=== PATIENT | male | born 1945 | race Caucasian/White ===

== ENCOUNTER → 2018-02-08 12:54 | Outpatient (CLI) | payer MEDICARE, SELFPAY ==
--- NOTE | 2018-02-08 12:58 | US_ITS ---
STUDY: SUPERFICIAL ULTRASOUND - LEFT SUPERIOR THIGH REASON FOR EXAM: Male, 72 years old. Left thigh a palpable lump, check for neoplasm. TECHNIQUE: A superficial ultrasound was performed with real-time and static pillai-scale imaging. COMPARISON: None available. FINDINGS: Oval smooth margin well-demarcated heterogeneous echogenic 8.1 x 2.3 x 5.6 cm mass is identified with eccentric area of heterogeneous increased echogenicity and relative contralateral hypoechogenicity noted within the mass. In addition, internal color Doppler signal is noted including centrally. Lesion is fairly superficial within 2.5 cm of the skin margin and transducer. ct scan special procedures technologist documented compression of the mass from 2.2 cm to 1.8 cm with transverse projection. ct scan special procedures technologist documented lump not palpable and lying down and demonstrates some posterior enhancement. US/Ext Non Vasc Limited/Soft Tiss IMPRESSION: Oval smooth margin well-demarcated heterogeneous echogenic fairly superficial left superior thigh mass 8.1 x 2.3 x 5.6 cm, neoplasm not excluded. Due to internal color Doppler signal, hematoma is a lower probability differential consideration although clinical correlation is recommended with any recent trauma or patient is taking blood thinners/coagulopathy. Electronically Signed: Lavell Moreau, at 8:36 EDT Tel , Service support ,
== END ==
PROVIDERS: Family Provider Family Medicine; PCP Family Medicine; Visit Provider Family Medicine
DX: R22.42 Localized swelling, mass and lump, left lower limb (principal)
CPT/HCPCS: 76882

== ENCOUNTER → 2018-12-02 | Outpatient (CLI) | payer MEDICARE, SELFPAY ==
[2018-12-02 10:24] LABS: International Normalized Ratio 2.6; Prothrombin Time (Protime)PT. 27.7 SECONDS (11.7-14.9)
== END | disposition home or self-care (01) ==
LOC: LABSPEC 10:12
PROVIDERS: Family Provider Family Medicine; PCP Family Medicine; Referring Provider Family Medicine; Visit Provider Family Medicine
DX: I48.2 Chronic atrial fibrillation (principal); Z79.01 Long term (current) use of anticoagulants
CPT/HCPCS: 85610

== ENCOUNTER → 2018-12-09 | Outpatient (CLI) | payer MEDICARE, SELFPAY ==
[2016-11-24 20:09] VITALS: BMI 34.4
[2018-12-09 10:26] LABS: International Normalized Ratio 1.9; Prothrombin Time (Protime)PT. 21.5 SECONDS (11.7-14.9)
== END | disposition home or self-care (01) ==
LOC: LABSPEC 10:09
PROVIDERS: Family Provider Family Medicine; PCP Family Medicine; Referring Provider Family Medicine; Visit Provider Family Medicine
DX: I48.2 Chronic atrial fibrillation (principal); Z79.01 Long term (current) use of anticoagulants
CPT/HCPCS: 85610

== ENCOUNTER → 2018-12-14 | Outpatient (CLI) | payer MEDICARE, SELFPAY ==
[2016-11-24 20:09] VITALS: BMI 34.4
[2018-12-14 12:54] LABS: International Normalized Ratio 2.2; Prothrombin Time (Protime)PT. 24.8 SECONDS (11.7-14.9)
== END | disposition home or self-care (01) ==
LOC: LABSPEC 12:25
PROVIDERS: Family Provider Family Medicine; PCP Family Medicine; Referring Provider Family Medicine; Visit Provider Family Medicine
DX: I48.2 Chronic atrial fibrillation (principal); Z79.01 Long term (current) use of anticoagulants
CPT/HCPCS: 85610

== ENCOUNTER → 2019-08-04 07:23 | Outpatient (CLI) | payer MEDICARE, SELFPAY ==
[2019-07-28 14:41] VITALS: BMI 34.1
--- NOTE | 2019-08-04 07:24 | AAVD_ITS ---
Reason For Study: AAA Aorta Measurements Aorta Doppler Measurements Proximal aorta measures1.85 x 1.86cm. in cross- Peak systolic flow velocities within the proximal sectional axis. aorta measure 92.4 cm/sec. Proximal aorta measures1.83cm. in longitudinal Peak systolic flow velocities within the mid aorta axis. measure 102.2 cm/sec. Mid aorta measures2.45 x 2.47cm. in cross- Peak systolic flow velocities within the distal sectional axis. aorta measure 73.8 cm/sec. Mid aorta measures2.46cm. in longitudinal axis. Distal aorta measures2.34 x 2.39cm. in cross- sectional axis. Distal aorta measures2.29cm. in longitudinal axis. Left Iliac Artery Left iliac artery measures 1.01 x 1.03 cm. in the cross-sectional axis. Left iliac artery measures 1.00 cm. in the longitudinal axis. Peak systolic velocity in the left iliac artery measures 176.5 cm/sec. Right Iliac Artery Right iliac artery measures 0.97 x 0.99 cm. in the cross-sectional axis. Right iliac artery measures 1.04 cm. in the longitudinal axis. Peak systolic velocity in the right iliac artery measures 100.1 cm/sec. Procedure Aorta IVC Iliac vasculature or bypass grafts 15215. Bowel gas noted at mid abdomen. Exam performed in department. Interpretation Summary Maximal mid aortic dimensions of 2.45 x 2.47 cm. Flow rate in the mid abdominal aorta is marginally elevated at 102.2 cm/s, not clinically significant Left common iliac 1.01 x 1.03 cm diameter with mildly elevated velocity 176.5 cm/s but imaging was difficult at that level Right common iliac 0.97 x 0.99 cm in diameter with a flow rate of 100.1 cm/s Ordering Physician: Vaughn Jiang Referring Physician: Daquan Harris Performed By: Eleni Damon RVT
== END ==
PROVIDERS: PCP Family Medicine; Referring Provider Internal Medicine Cardiovascular Disease; Visit Provider Internal Medicine Cardiovascular Disease
DX: I71.4 Abdominal aortic aneurysm, without rupture (principal)
CPT/HCPCS: 93978

== ENCOUNTER → 2019-12-07 | Outpatient (CLI) | payer MEDICARE, SELFPAY ==
[2019-07-28 14:41] VITALS: BMI 34.1
[2019-12-07 15:56] LABS: Prothrombin Time (Protime)PT. 49.2 SECONDS (11.7-14.9)
[2019-12-07 16:02] LABS: International Normalized Ratio 5.4
== END | disposition home or self-care (01) ==
LOC: LABSPEC 15:11
PROVIDERS: PCP Family Medicine; Visit Provider Family Medicine
DX: I48.20 Chronic atrial fibrillation, unspecified (principal); Z79.01 Long term (current) use of anticoagulants
CPT/HCPCS: 85610

== ENCOUNTER 2019-12-14 16:20 | Inpatient (IN) | payer MEDICARE, SELFPAY ==
[2019-07-28 14:41] VITALS: BMI 34.1
[2019-12-14] VITALS (9 sets, daily range): BP systolic 94–127; BP diastolic 63–76; PULSE 95–114; RESP 16–25; TEMP 36.6–36.8; O2SAT 89–98; BMI 33.5; BMI 34.3; BMI 34.4
--- NOTE | 2019-12-14 16:43 | EKG12_ITS ---
Test Reason : SOB Blood Pressure : / mmHG Vent. Rate : 123 BPM Atrial Rate : 147 BPM P-R Int : 126 ms QRS Dur : 148 ms QT Int : 326 ms P-R-T Axes : -22 133 -12 degrees QTc Int : 466 ms Atrial fibrillation Right bundle branch block T wave abnormality, consider inferior ischemia Abnormal ECG Confirmed by EDNA CARDENAS, MATTHEW ([id number]), editor at large JEREMY WALKER ([id number]) on 12/18/2019 2:07:58 PM Referred By: DENNIS Confirmed By:HUGO BISHOP MD
--- NOTE | 2019-12-14 16:52 | ED.VIS.GEN ---
History of Present Illness Chief Complaint: Shortness of Breath Informant: Patient, Significant Other Onset: Weeks Context: Gradual Onset Timing: Continuous, Waxes and wanes Quality: Dyspnea with exertion, wheezing, nonproductive cough Location: Upper respiratory Current Severity: Mild Maximum Severity: Severe Worsened by: Walking 30 feet. Relieved by: Thank Associated Symptoms: Chills without fever Narrative: Patient is a elderly male on Coumadin for chronic atrial fibrillation. INR was 8. Most recent INR is 4.0. He has no history of PE or DVT. Patient does have discoloration of his legs due to venous stasis dermatitis. He states he has had this for years. He denies headache. Denies visual, ocular auditory symptoms. He denies rhinorrhea, congestion or postnasal drainage. He denies sore throat. He denies loss in smell or taste. states he is always had a problem with taste. He denies pleuritic chest pain. He denies nausea, vomiting diarrhea. He denies hematemesis, melena medication. He denies dysuria, frequency, urgency or hematuria. states he has been on prednisone. He recently completed his third course of prednisone. Prior similar symptoms: Yes Recent Illness/Hospitalization: Yes - Past Medical History (1) Pulmonary hypertension, secondary Status: Acute (2) RBBB (right bundle branch block) Status: Acute (3) Abdominal aortic aneurysm (AAA) Status: Chronic (4) BPH (benign prostatic hyperplasia) Status: Chronic (5) Chronic atrial fibrillation Status: Chronic (6) Essential hypertension Status: Chronic (7) Mixed hyperlipidemia Status: Chronic (8) Non-rheumatic tricuspid valve insufficiency Status: Chronic (9) Nonrheumatic aortic (valve) stenosis Status: Chronic (10) Type 2 diabetes mellitus Status: Chronic (11) Venous insufficiency Status: Chronic Past Medical History - Allergies and Home Meds Allergies/Adverse Reactions: Allergies No Known Allergies Allergy (Verified 12/14/19 16:21) Primary Care Physician: Bora Harris MD [Primary Care Provider] - Prior records reviewed: Yes Surgical History: noncontributory Lives: Spouse/ Significant Other Smoking Status: Former smoker - Patient states he quit smoking 1 week ago. Alcohol: None Drugs: None - Family History Maternal Family History: Family History (Last Reviewed 07/28/19 @ 14:44 by Clementine King) Sister CVA (cerebral vascular accident) Mother Diabetes Cancer Family History: Reports: No pertinent history Review of Systems General: Reports: Chills. Denies: Fever, Malaise, Subjective, Sweats, Weight loss Eyes: Denies: Visual changes - bilaterally, Blurred Vision - bilaterally ENT: Denies: Bilateral ear pain, Rhinorrhea, Sore throat Cardiovascular: Reports: Palpitations. Denies: Chest pain, Heart racing, -, - Respiratory: Reports: Dyspnea, Cough. Denies: Sputum, Dyspnea on exertion - States he was able to walk 150 to 200 yards without being short of breath 1 month ago., Orthopnea, Paroxysmal nocturnal dyspnea Gastrointestinal: Denies: Abdominal pain, Nausea, Vomiting, Diarrhea, Melena, Hematochezia Genitourinary: Denies: Dysuria, Hematuria, Frequency Musculoskeletal: Reports: Swelling - Chronic due to venous stasis with venous stasis dermatitis.. Denies: Myalgias, Arthralgias, Neck pain, Back pain, Extremity Pain, -, - Skin: Reports: Rash. Denies: Abscess, Abrasions, Wounds Neurological: Reports: Weakness. Denies: Headache, Parasthesia, Numbness Endocrine: Denies: Polyuria, Polydipsia Hematologic: Reports: Easy bruising Physical Exam Vital Signs/Narrative: Vital Signs Temp Pulse Resp BP Pulse Ox 12/14/19 16:22 97.9 F 114 H 25 H 125/72 H 89 Inital Vital Signs reviewed: Yes General: Well nourished, Well developed, Acute Distress Head: Normocephalic, Atraumatic Eyes: Perrl, EOMI. Negative for: Pale conjunctiva, Scleral icterus ENT: Moist mucous membranes, No rhinorrhea, TM's clear Neck: Supple, Nontender, No lymphadenopathy, No JVD Cardiovascular: No murmurs, Irregular, Tachycardia Respiratory: Chest nontender, Wheezing - Is much greater on the right compared to the left. Question of egophony posteriorly on the right., Diminished, Decreased Air Movement, - - Patient has conversational dyspnea. Abdomen: Soft, Nontender, Nondistended, Normal bowel sounds Back: Nontender, Normal Inspection. Negative for: CVA tenderness Extremities: Nontender, Edema Skin: Normal color, Rash - He has stasis dermatitis right and left lower extremity Neurological: Alert, Oriented x3, Cranial nerves II-XII grossly intact, Normal Strength, Normal Sensation Psychological: Normal affect, Normal Mood Diagnostic/Tx/Re-eval Impressions Chest CT 12/14/19 18:16 IMPRESSION: Severe left lung consolidation and large pleural effusion. Electronically Signed: Jitendra Mc MD at 19:23 EDT , Service support , 12/14/19 17:55 Chest 1 View (Portable) [RAD] Stat 12/14/19 18:16 CT Chest [Chest WITH Contrast] [CT] Stat Laboratory Results 12/14/19 12/14/19 12/14/19 16:45 16:45 17:15 WBC 7.4 RBC 4.26 L Hgb 13.6 Hct 42.6 MCV 100.0 H MCH 31.9 MCHC 31.9 L RDW Std Deviation 56.1 H RDW Coeff of Keisha 15.4 H Plt Count 231 MPV 10.4 Immature Gran % (Auto) 0.300 Neut % (Auto) 68.0 Lymph % (Auto) 14.0 L Stewart % (Auto) 15.5 H Eos % (Auto) 1.8 Baso % (Auto) 0.4 Absolute Neuts (auto) 5.0 Absolute Lymphs (auto) 1.04 Nucleated RBC % 0 Sodium Cancelled Potassium Cancelled Chloride Cancelled Carbon Dioxide Cancelled Anion Gap Cancelled BUN Cancelled Creatinine Cancelled Estim Creat Clear Calc Cancelled Est GFR (MDRD) Af Amer Cancelled Est GFR (MDRD) Non-Af Cancelled BUN/Creatinine Ratio Cancelled Glucose Cancelled Lactic Acid 2.3 H* Calcium Cancelled Total Bilirubin Cancelled AST Cancelled ALT Cancelled Alkaline Phosphatase Cancelled Total Protein Cancelled Albumin Cancelled Globulin Cancelled Albumin/Globulin Ratio Cancelled 12/14/19 17:45 WBC RBC Hgb Hct MCV MCH MCHC RDW Std Deviation RDW Coeff of Keisha Plt Count MPV Immature Gran % (Auto) Neut % (Auto) Lymph % (Auto) Stewart % (Auto) Eos % (Auto) Baso % (Auto) Absolute Neuts (auto) Absolute Lymphs (auto) Nucleated RBC % Sodium 138 Potassium 4.2 Chloride 101 Carbon Dioxide 32.0 Anion Gap 5 BUN 23 H Creatinine 1.12 Estim Creat Clear Calc 61.63 Est GFR (MDRD) Af Amer 82 Est GFR (MDRD) Non-Af 68 BUN/Creatinine Ratio 20.5 H Glucose 156 H Lactic Acid Calcium 8.9 Total Bilirubin 1.70 H AST 14 L ALT 14 L Alkaline Phosphatase 86 Total Protein 7.7 Albumin 3.3 Globulin 4.4 H Albumin/Globulin Ratio 0.8 L - EKG Initial EKG Interpretation: Atrial Fibrillation - Computer reads sinus tach. Patient is in atrial fibrillation with a ventricular rate of 123. QRS duration 148 ms. QT duration 326 ms with a QTC of 466 ms. [place] to the right. QRS morphology consistent with a right bundle branch block. There is no acute ischemic changes noted. - Medical Decision Making Patient is hypoxic. With cough and chills need to evaluate for viral upper respiratory infection, pneumonia, COVID. This may be an exacerbation of his COPD due to upper respiratory infection. Appropriate work-up was initiated which included a chest x-ray, blood work and testing for COVID. He was treated with DuoNeb followed by albuterol and was given 125 mg of Solu-Medrol. ED Disposition - Plan for ED Patient: Disposition: Acute Care Hospital [facility] Diagnosis: Pleural effusion on left, Hypoxia, Essential hypertension, Mixed hyperlipidemia, Type 2 diabetes mellitus, Chronic atrial fibrillation, Atrial fibrillation with RVR, Lactic acidosis Referrals: Bora Harris MD [Primary Care Provider] -
[2019-12-14 16:59] LABS: Absolute Lymphocyte Count 1.04 X10^3/uL (0.83-4.51); Basophil# 0.03 X10^3/uL; Basophil% 0.4 % (0-1); Eosinophil# 0.13 X10^3/uL; Eosinophils% 1.8 % (0-5); Hematocrit 42.6 % (40-54); Hemoglobin 13.6 g/dL (13.0-16.5); Lymphocyte # 1.04 X10^3/ul (4.0); Mean Corp Hgb Conc 31.9 g/dL (32-36); Mean Corpuscular Hgb 31.9 pg (27.0-32.0); Mean Platelet Vol. 10.4 fl (6.2-12.0); Monocyte# 1.15 X10^3/uL; Monocyte% 15.5 % (0-10); NRBC Flagged by Analyzer 0 % (0-5); Neutrophil # 5.04 X10^3/uL (2.7-7.7); Platelet Count 231 K/mm3 (150-450); RBC Distribution Width CV 15.4 % (11.6-14.6); RBC Distribution Width SD 56.1 fl (35.1-43.9); Red Blood Count 4.26 M/mm3 (4.6-6.2); White Blood Count 7.4 K/mm3 (4.4-11.0)
--- NOTE | 2019-12-14 17:55 | RAD_ITS ---
STUDY: X-RAY CHEST REASON FOR EXAM: Male, 74 years old. PT ARRIVES TO ED WITH INCREASED SOB FOR 5 DAYS WITH CHILLS. NO FEVER. TECHNIQUE: Single frontal view of the chest. COMPARISON: October 18, 2016 FINDINGS: Cardiac silhouette poorly assessed. Pulmonary vascularity unremarkable. Aorta is poorly assessed. Large left pulmonary opacity occupying most of the left hemithorax. No pleural effusions. Upper abdomen unremarkable. Osseous structures intact. No pneumothorax. RAD/Chest 1 View (Portable) IMPRESSION: Large left hemithorax opacity most likely represents effusion and atelectasis. An underlying pneumonia should be excluded clinically. Electronically Signed: Wagner Gonzalez, at 20:04 EDT Tel , Service support ,
[2019-12-14 18:10] LABS: ALB/GLOB Ratio 0.8 RATIO (0.9-2.4); AST(SGOT) 14 U/L (15-37); Alanine Aminotransfer ALT/SGPT 14 U/L (16-61); Albumin, Serum 3.3 g/dL (3.2-5.0); Alkaline Phosphatase 86 U/L (45-117); Anion Gap 5 (5-15); BUN 23 mg/dL (7-18); BUN/Creat Ratio 20.5 RATIO (10-20); Calcium,Total 8.9 mg/dL (8.5-10.1); Chloride 101 mmol/L (98-107); Creatinine, Serum 1.12 mg/dL (0.70-1.30); EST Glomerular Filtration Rate 68 mL/min (>60); Est Glom Filt Rate - Afr Amer 82 mL/min (>60); Estimated Creatinine Clearance 61.63 ml/min; Globulin 4.4 g/dL (2.2-4.2); Glucose 156 mg/dL (74-106); Potassium 4.2 mmol/L (3.5-5.1); Protein, Total 7.7 g/dL (6.4-8.2); Sodium Level 138 mmol/L (136-145)
[2019-12-14 18:15] LABS: Lactic Acid 2.3 mmol/L (0.4-1.9)
--- NOTE | 2019-12-14 18:16 | CT_ITS ---
STUDY: CT CHEST WITH CONTRAST REASON FOR EXAM: Male, 74 years old. SOB X 5 DAYS,CHILLS -- HX:A-FIB,HTN RADIATION DOSAGE (If Supplied By Facility): CTDIvol = ( 19.54 ) mGy, DLP = ( 745.81 ) mGycm TECHNIQUE: Transaxial imaging was performed following intravenous administration of IV 100mL Isovue-370. Multiplanar coronal and sagittal images were reformatted. Individualized dose optimization techniques were used for this CT. COMPARISON: Chest x-ray FINDINGS: There is severe airspace consolidation of the left lung. There is minimal aeration at the left upper lung. There is large left pleural effusion. There is right lower lung granuloma. There is right lower lung atelectasis. There are calcifications of the coronary arteries. Normal mediastinum. There calcified right hilar lymph nodes. Normal enhanced pulmonary arteries. There is atherosclerotic calcification of the aortic arch with tortuosity and elongation of the aortic arch and descending thoracic aorta. There are multi-level degenerative changes of the thoracic spine. There is no demonstrated abnormality of the visualized upper abdomen. CT/Chest WITH Contrast IMPRESSION: Severe left lung consolidation and large pleural effusion. Electronically Signed: Jitendra Mc MD at 19:23 EDT , Service support ,
--- NOTE | 2019-12-14 19:29 | PCM.HP.STD ---
Problem List (1) Pleural effusion on left Status: Acute (2) Hypoxia Status: Acute (3) Atrial fibrillation with RVR Status: Acute (4) Lactic acidosis Status: Acute (5) Non-rheumatic tricuspid valve insufficiency Status: Chronic (6) Nonrheumatic aortic (valve) stenosis Status: Chronic (7) Venous insufficiency Status: Chronic (8) RBBB (right bundle branch block) Status: Chronic (9) Pulmonary hypertension, secondary Status: Chronic (10) BPH (benign prostatic hyperplasia) Status: Chronic (11) Abdominal aortic aneurysm (AAA) Status: Chronic Qualifiers: Presence of rupture: without rupture Qualified Code(s): I71.4 - Abdominal aortic aneurysm, without rupture (12) Mixed hyperlipidemia Status: Chronic (13) Essential hypertension Status: Chronic (14) Type 2 diabetes mellitus Status: Chronic (15) Chronic atrial fibrillation Status: Chronic History of Present Illness Date of Admission: 12/14/19 Chief Complaint: shortness of breath The patient is a 74 year old M with a significant history of tobacco abuse; chronic atrial fibrillation; abdominal aortic aneurysm; nonrheumatic tricuspid valve insufficiency; nonrheumatic aortic valve insufficiency; pulmonary hypertension; right bundle branch block; type 2 diabetes; and venous insufficiency who presented to the emergency department with 5-day history of shortness of breath. Associated for symptoms is mild chills without fever. Patient reported blood at home his oxygen saturation was in the 80s. At emergency department on room air his oxygen saturation was between 88 to 89%. With ambulation it dropped further now. Patient had INR done before presentation. His INR reportedly was more than 4. Past Medical History Past Medical History (Chronic Problems): Chronic Problems (Last Reviewed 12/14/19 @ 20:[address] Stevie Gomez MD) Non-rheumatic tricuspid valve insufficiency (Chronic) Nonrheumatic aortic (valve) stenosis (Chronic) Venous insufficiency (Chronic) RBBB (right bundle branch block) (Chronic) Pulmonary hypertension, secondary (Chronic) BPH (benign prostatic hyperplasia) (Chronic) Abdominal aortic aneurysm (AAA) (Chronic) Mixed hyperlipidemia (Chronic) Essential hypertension (Chronic) Type 2 diabetes mellitus (Chronic) Chronic atrial fibrillation (Chronic) Medical History: Medical History (Last Reviewed 12/14/19 @ 20:[address] Stevie Gomez MD) Non-rheumatic tricuspid valve insufficiency (Chronic) I36.1 Nonrheumatic aortic (valve) stenosis (Chronic) I35.0 Venous insufficiency (Chronic) I87.2 RBBB (right bundle branch block) (Chronic) I45.10 Pulmonary hypertension, secondary (Chronic) Abdominal aortic aneurysm (AAA) (Chronic) I71.4 Mixed hyperlipidemia (Chronic) E78.2 Essential hypertension (Chronic) I10 Type 2 diabetes mellitus (Chronic) E11.9 Chronic atrial fibrillation (Chronic) I48.2 Allergies No Known Allergies Allergy (Verified 12/14/19 16:21) Home Medications: Ambulatory Orders Medication Instructions Recorded RX: Atorvastatin Calcium [Lipitor] 10 mg PO QHS 11/06/13 RX: Lisinopril [Zestril] 2.5 mg PO DAILY 11/06/13 RX: Warfarin [Coumadin] 10 mg PO DAILY 07/02/14 RX: Albuterol Inhaler [Ventolin 1 - 2 puff INHALATION Q4H PRN PRN 10/18/16 Hfa] #1 inhaler Canagliflozin [Invokana] 300 mg PO DAILY 11/24/16 glimepiride 4 mg tablet 4 mg PO DAILY tab 01/17/19 metoprolol tartrate 25 mg tablet 12.5 mg PO BID tab 01/17/19 umeclidinium 62.5 mcg-vilanterol 1 inh INHALATION Q24H 01/17/19 25 mcg/actuation powdr for inhalation Furosemide [Lasix] 40 mg PO BID 12/14/19 metFORMIN (XR) [Glucophage Xr] 1,000 mg PO BID 12/14/19 Surgical History: Surgical History (Last Reviewed 12/14/19 @ 20:[address] Stevie Gomez MD) History of cholecystectomy Z90.49 History of mastoidectomy Z90.89 History of tonsillectomy and adenoidectomy Z98.890 Lives: Spouse/ Significant Other Smoking Status: Former smoker - Patient states he quit smoking 1 week ago. Alcohol: None Drugs: None - *Family History Maternal Family History: Family History (Last Reviewed 12/14/19 @ 20:[address] Stevie Gomez MD) Sister CVA (cerebral vascular accident) Mother Diabetes Cancer History Items: No pertinent history Review of Systems Constitutional: Reports: Chills - Mild, Fatigue. Denies: Fever, Weight Change HEENT: Denies: Head Aches, Sinus Congestion, Sinus Drainage Cardiovascular: Denies: Chest Pain, Palpitations Respiratory: Reports: Shortness of Breath, Wheezing. Denies: Cough Gastrointestinal: Denies: Abdominal Pain, Nausea, Vomiting Genitourinary: Denies: Dysuria Musculoskeletal: Denies: Joint Pain, Joint Tenderness Skin: Denies: Rash, Wounds Neurological: Denies: Numbness, Tingling, Focal weakness Psychiatric: Denies: Anxiety, Depression, Homicidal Ideations, Suicidal Ideations Hematologic/ Lymphatic: Denies: Easy Bruising, Easy Bleeding VTE Information - Inpt Only VTE Present on Admission: No VTE Mechan Device Prophylaxis: SCD's VTE Pharm Prophylaxis ordered?: No Patient Problems: Active and Suspected Problems (Last Reviewed 12/14/19 @ 20:[address] Stevie Gomez MD) Pleural effusion on left (Acute) Hypoxia (Acute) Atrial fibrillation with RVR (Acute) Lactic acidosis (Acute) - Physical Exam Vitals/I&O's: Vital Signs Temp Pulse Resp BP Pulse Ox 98 F 95 23 H 94/76 94 12/14/19 19:01 12/14/19 19:01 12/14/19 19:01 12/14/19 19:01 12/14/19 19:01 Oxygen Flow Rate (L/min) 2 Oxygen Delivery Method Nasal Cannula Weight: 108.862 kg Body Mass Index (BMI) 33.5 General: Alert, Oriented x3, Cooperative HEENT: Atraumatic, PERRLA, EOMI, Normocephalic Neck: Supple, Trachea Midline Lungs: No rhonchi, No rales, Tachypneic, Wheezes Cardiovascular: Normal S1, Normal S2, No murmurs, Tachycardic Abdomen: Bowel Sounds Present, Soft, Non Tender Extremities: Capillary Refill Less than 3 Seconds, Edema - left foot Skin: - - Hyperpigmentation on bilateral legs. Musculoskeletal: No Tenderness to Palpation of Joints or Extremities Neurological: Cranial nerves II-XII grossly intact - Hard of hearing and uses a hearing aid. Psych/Mental Status: Normal Affect, Appropriate Laboratory Results 12/14/19 16:45: WBC 7.4, RBC 4.26 L, Hgb 13.6, Hct 42.6, MCV 100.0 H, MCH 31.9, MCHC 31.9 L, RDW Std Deviation 56.1 H, RDW Coeff of Keisha 15.4 H, Plt Count 231, MPV 10.4, Immature Gran % (Auto) 0.300, Neut % (Auto) 68.0, Lymph % (Auto) 14.0 L, Archer % (Auto) 15.5 H, Eos % (Auto) 1.8, Baso % (Auto) 0.4, Absolute Neuts (auto) 5.0, Absolute Lymphs (auto) 1.04, Nucleated RBC % 0 12/14/19 16:45: Sodium Cancelled, Potassium Cancelled, Chloride Cancelled, Carbon Dioxide Cancelled, Anion Gap Cancelled, BUN Cancelled, Creatinine Cancelled, Estim Creat Clear Calc Cancelled, Est GFR (MDRD) Af Amer Cancelled, Est GFR (MDRD) Non-Af Cancelled, BUN/Creatinine Ratio Cancelled, Glucose Cancelled, Calcium Cancelled, Total Bilirubin Cancelled, AST Cancelled, ALT Cancelled, Alkaline Phosphatase Cancelled, Total Protein Cancelled, Albumin Cancelled, Globulin Cancelled, Albumin/Globulin Ratio Cancelled 12/14/19 16:57: COVID-19 (NAIF) Pending 12/14/19 17:15: Lactic Acid 2.3 H* 12/14/19 17:45: Sodium 138, Potassium 4.2, Chloride 101, Carbon Dioxide 32.0, Anion Gap 5, BUN 23 H, Creatinine 1.12, Estim Creat Clear Calc 61.63, Est GFR (MDRD) Af Amer 82, Est GFR (MDRD) Non-Af 68, BUN/Creatinine Ratio 20.5 H, Glucose 156 H, Calcium 8.9, Total Bilirubin 1.70 H, AST 14 L, ALT 14 L, Alkaline Phosphatase 86, Total Protein 7.7, Albumin 3.3, Globulin 4.4 H, Albumin/Globulin Ratio 0.8 L Assessment/Plan All Active Problems (Last Reviewed 12/14/19 @ 20:[address] Stevie Gomez MD) Pleural effusion on left (Acute) Hypoxia (Acute) Atrial fibrillation with RVR (Acute) Lactic acidosis (Acute) The patient is a 74 year old M with a significant history of tobacco abuse; chronic atrial fibrillation; abdominal aortic aneurysm; nonrheumatic tricuspid valve insufficiency; nonrheumatic aortic valve insufficiency; pulmonary hypertension; right bundle branch block; type 2 diabetes; and venous insufficiency who presented to the emergency department with 5-day history of shortness of breath; hypoxia was found to have lactic acidosis and extensive left pleural effusion. Acute respiratory insufficiency secondary to Left pleural effusion Actual images of chest x-ray and CT scan of lungs were reviewed. It showed extensive left-sided pleural effusion. Discussed emergency department doctor to repeat PT/INR. If PT/INR is elevated will consider fresh frozen plasma and vitamin K as we plan for thoracentesis. Diagnostic thoracentesis ordered. COVID-19 test was ordered at emergency department. Returned negative. Discontinue covered precautions as patient is low risk. Pulmonology consult. Lactic acidosis Likely multifactorial from metformin use and hypoxia. Hold metformin for now. Treatment for left-sided pleural effusion as above. Trend COPD exacerbation Patient with some wheezes on presentation. Per emergency department doctor patient has received Solu-Medrol and breathing treatments at emergency department. Prednisone 40 mg daily ordered. Hold home inhalers. Scheduled DuoNeb. Albuterol ordered. A. fib with RVR Ventricular rate on 102 120. Likely secondary to hypoxia. Treatment of pleural effusion as above. Hold Coumadin because of supratherapeutic INR on outpatient lab. Metoprolol continued. Diabetes mellitus Patient with hyperglycemia In the hospital setting and in the setting of lactic acidosis will hold metformin. Continue canagliflozin. Accu-Cheks with correction scale insulin ordered. Tobacco abuse Reportedly patient quit about a week ago Counseled. Hyperlipidemia Lipitor continued. Hypertension Blood pressure is stable in regard to his age. Metoprolol and lisinopril continued. Trend blood pressure and adjust blood pressure medication as necessary. DVT prophylaxis Supratherapeutic INR. SCD ordered. Inpatient E&M: 62489 Init Hosp L3
[2019-12-14 20:10] LABS: International Normalized Ratio 3.3; Prothrombin Time (Protime)PT. 32.8 SECONDS (11.7-14.9)
[2019-12-14] MEDS: Ipratropium/Albuterol Sulfate 3 ML AMPUL.NEB INHALATION (21:10)
[2019-12-14 21:27] LABS: Reflex Lactate? Y
[2019-12-14] MEDS: Metoprolol Tartrate 25 MG Tablet 12.5 MG PO (22:25)
[2019-12-14] MEDS: Atorvastatin Calcium 10 MG Tablet PO (22:25)
[2019-12-14 23:05] LABS: Lactic Acid 0.9 mmol/L (0.4-1.9)
[2019-12-14 23:36] LABS: Bedside Glucose 70 mg/dL (70-110)
[2019-12-15] VITALS (23 sets, daily range): BP systolic 98–117; BP diastolic 42–86; PULSE 78–117; RESP 16–20; TEMP 36.4–36.9; O2SAT 92–98
[2019-12-15] MEDS: Albuterol 2.5 MG/3 ML VIAL.NEB. INHALATION
[2019-12-15 06:21] LABS: Absolute Lymphocyte Count 1.05 X10^3/uL (0.83-4.51); Absolute Neutrophil Count 5.2 X10^3/uL (2.0-7.7); Basophil# 0.04 X10^3/uL; Basophil% 0.5 % (0-1); Eosinophil# 0.29 X10^3/uL; Eosinophils% 3.8 % (0-5); Hemoglobin 13.2 g/dL (13.0-16.5); Lymphocyte # 1.05 X10^3/ul (4.0); Lymphocyte % 13.6 % (19-41); Mean Corp Hgb Conc 31.4 g/dL (32-36); Mean Corpuscular Volume 101.7 fL (80-94); Mean Platelet Vol. 9.5 fl (6.2-12.0); Monocyte# 1.14 X10^3/uL; Monocyte% 14.8 % (0-10); NRBC Flagged by Analyzer 0 % (0-5); Neutrophil # 5.15 X10^3/uL (2.7-7.7); Neutrophil % 66.7 % (47-70); Platelet Count 254 K/mm3 (150-450); RBC Distribution Width CV 15.1 % (11.6-14.6); RBC Distribution Width SD 56.4 fl (35.1-43.9); Red Blood Count 4.13 M/mm3 (4.6-6.2); White Blood Count 7.7 K/mm3 (4.4-11.0)
[2019-12-15 06:38] LABS: International Normalized Ratio 3.4; Prothrombin Time (Protime)PT. 33.7 SECONDS (11.7-14.9)
[2019-12-15 06:41] LABS: Anion Gap 6 (5-15); BUN 19 mg/dL (7-18); BUN/Creat Ratio 22.7 RATIO (10-20); Calcium,Total 8.9 mg/dL (8.5-10.1); Chloride 101 mmol/L (98-107); Creatinine, Serum 0.84 mg/dL (0.70-1.30); EST Glomerular Filtration Rate 95 mL/min (>60); Est Glom Filt Rate - Afr Amer 115 mL/min (>60); Estimated Creatinine Clearance 79.66 ml/min; Glucose 91 mg/dL (74-106); LDH 214 U/L (87-241); Potassium 4.1 mmol/L (3.5-5.1); Sodium Level 136 mmol/L (136-145)
[2019-12-15] MEDS: Ipratropium/Albuterol Sulfate 3 ML AMPUL.NEB INHALATION ×3 (06:51→19:30)
[2019-12-15 07:06] LABS: Bedside Glucose 96 mg/dL (70-110)
[2019-12-15] MEDS: Furosemide 40 MG Tablet PO ×2 (08:18→17:20)
[2019-12-15] MEDS: predniSONE 20 MG Tablet 40 MG PO (08:18)
[2019-12-15] MEDS: Metoprolol Tartrate 25 MG Tablet 12.5 MG PO ×2 (08:18→21:41)
[2019-12-15] MEDS: 0.9% Saline Lock 10 ML Syringe IV (08:20)
[2019-12-15] MEDS: Lisinopril 2.5 MG Tablet PO (08:20)
--- NOTE | 2019-12-15 10:47 | CON.PCM_ITS ---
Problem List (1) Pleural effusion on left Status: Acute (2) Hypoxia Status: Acute (3) Atrial fibrillation with RVR Status: Acute (4) Lactic acidosis Status: Acute (5) Non-rheumatic tricuspid valve insufficiency Status: Chronic (6) Nonrheumatic aortic (valve) stenosis Status: Chronic (7) Venous insufficiency Status: Chronic (8) RBBB (right bundle branch block) Status: Chronic (9) Pulmonary hypertension, secondary Status: Chronic (10) BPH (benign prostatic hyperplasia) Status: Chronic (11) Abdominal aortic aneurysm (AAA) Status: Chronic Qualifiers: Presence of rupture: without rupture Qualified Code(s): I71.4 - Abdominal aortic aneurysm, without rupture (12) Mixed hyperlipidemia Status: Chronic (13) Essential hypertension Status: Chronic (14) Type 2 diabetes mellitus Status: Chronic (15) Chronic atrial fibrillation Status: Chronic Reason for Consult Date of Consultation: 12/15/19 Reason for Consultation: Pleural effusion pleural effusion History of Present Illness: The patient is a 74 year old M with past medical history listed below, who presented to [facility] on 12/14/2019 secondary to gradual onset shortness of breath. Patient does have an extensive cardiac history including chronic A. fib for which he takes Coumadin therapy for patient and also reported some increased edema in his legs. Patient denied any sore throat, rhinorrhea, congestion, fever or chills. Patient had not had any nausea, vomiting, diarrhea or chest pain. No bleeding complications have been reported. Patient is on prednisone intermittently and had reportedly been on a third course of prednisone just recently. In the ER, chest x-ray and CT scan were consistent with a large left pleural effusion with compressive atelectasis. Patient did not have any significant leukocytosis noted on laboratory work-up. Patient did have an elevated INR, but renal function was at baseline. EKG showed baseline atrial fibrillation with RVR. Patient was noted to be hypoxic, which is new for him. Patient was admitted to the PCU for further evaluation. Since being in the PCU, patient reports subjective improvement in overall condition. Patient thinks this is secondary to the supplemental oxygen, which really seems to make a difference. Patient denies any pain at this time. Patient does report that he had been smoking much less over the last 3 to 4 days secondary to an inability to inhale.. Patient is unaware of any previous chest imaging showing any masses, but I have smoked long enough to get one. Patient does have an extensive cardiac history and has not required a thoracentesis previously. Review of systems otherwise negative from a constitutional, HEENT, respiratory, cardiovascular, GI, genitourinary, musculoskeletal, skin, neurologic, psychiatric and hematologic system unless stated above. Past Medical History Past Medical History (Chronic Problems): Chronic Problems (Last Reviewed 12/14/19 @ 20:[address] Stevie Gomez MD) Non-rheumatic tricuspid valve insufficiency (Chronic) Nonrheumatic aortic (valve) stenosis (Chronic) Venous insufficiency (Chronic) RBBB (right bundle branch block) (Chronic) Pulmonary hypertension, secondary (Chronic) BPH (benign prostatic hyperplasia) (Chronic) Abdominal aortic aneurysm (AAA) (Chronic) Mixed hyperlipidemia (Chronic) Essential hypertension (Chronic) Type 2 diabetes mellitus (Chronic) Chronic atrial fibrillation (Chronic) Medical History: Medical History (Last Reviewed 12/14/19 @ 20:[address] Stevie Gomez MD) Non-rheumatic tricuspid valve insufficiency (Chronic) I36.1 Nonrheumatic aortic (valve) stenosis (Chronic) I35.0 Venous insufficiency (Chronic) I87.2 RBBB (right bundle branch block) (Chronic) I45.10 Pulmonary hypertension, secondary (Chronic) Abdominal aortic aneurysm (AAA) (Chronic) I71.4 Mixed hyperlipidemia (Chronic) E78.2 Essential hypertension (Chronic) I10 Type 2 diabetes mellitus (Chronic) E11.9 Chronic atrial fibrillation (Chronic) I48.2 Allergies No Known Allergies Allergy (Verified 12/14/19 16:21) Home Medications: Ambulatory Orders Medication Instructions Recorded Atorvastatin Calcium [Lipitor] 10 mg PO QHS 11/06/13 Lisinopril [Zestril] 2.5 mg PO DAILY 11/06/13 Warfarin [Coumadin] 10 mg PO DAILY 07/02/14 Albuterol Inhaler [Ventolin Hfa] 1 - 2 puff INHALATION Q4H PRN PRN 10/18/16 #1 inhaler Canagliflozin [Invokana] 300 mg PO DAILY 11/24/16 glimepiride 4 mg tablet 4 mg PO DAILY tab 01/17/19 metoprolol tartrate 25 mg tablet 12.5 mg PO BID tab 01/17/19 umeclidinium 62.5 mcg-vilanterol 1 inh INHALATION Q24H 01/17/19 25 mcg/actuation powdr for inhalation Furosemide [Lasix] 40 mg PO BID 12/14/19 metFORMIN (XR) [Glucophage Xr] 1,000 mg PO BID 12/14/19 Surgical History: Surgical History (Last Reviewed 12/14/19 @ 20:[address] Stevie Gomez MD) History of cholecystectomy Z90.49 History of mastoidectomy Z90.89 History of tonsillectomy and adenoidectomy Z98.890 Surgical History: noncontributory Lives: Spouse/ Significant Other Smoking Status: Former smoker Tobacco Use: Cigarettes Alcohol: None Drugs: None - *Family History Maternal Family History: Family History (Last Reviewed 12/14/19 @ 20:[address] Stevie Gomez MD) Sister CVA (cerebral vascular accident) Mother Diabetes Cancer History Items: No pertinent history Review of Systems Comment: See HPI Patient Problems: Active and Suspected Problems (Last Reviewed 12/14/19 @ 20:[address] Stevie Gomez MD) Pleural effusion on left (Acute) Hypoxia (Acute) Atrial fibrillation with RVR (Acute) Lactic acidosis (Acute) Objective: All imaging was personally reviewed. Patient does have a large pleural effusion - Physical Exam Vitals/I&O's: Vital Signs Temp Pulse Resp BP Pulse Ox 36.4 C L 86 18 113/55 L 97 12/15/19 10:25 12/15/19 10:25 12/15/19 10:25 12/15/19 10:25 12/15/19 10:25 Oxygen Flow Rate (L/min) 4 Oxygen Delivery Method Nasal Cannula Weight: 108.6 kg Body Mass Index (BMI) 34.3 Intake and Output for Last 24 Hours 12/13/19 12/14/19 12/15/19 23:59 23:59 23:59 Intake Total 0 / 0 Balance 0 / 0 General: Alert, Oriented x3, Cooperative, - - Mild conversational dyspnea. Obese. HEENT: Atraumatic, PERRLA, EOMI, Normocephalic, - - No scleral icterus or injection noted Oral: Moist Mucosa, No Gingival or Mucosal Lesions/ Ulcerations Neck: Supple, No JVD, No Nodes, Trachea Midline Lungs: - - Little to no air movement noted on the left chest. Egophony noted. Dullness to percussion throughout the left hemithorax Cardiovascular: Normal S1, Normal S2, No murmurs, Irregular Rate, No rub noted, No Gallop Abdomen: Bowel Sounds Present, Soft, Non Tender, Non-Distended, Obese Extremities: No cyanosis, Capillary Refill Less than 3 Seconds, Edema Skin: No rashes, No breakdown Musculoskeletal: No Tenderness to Palpation of Joints or Extremities Lymphatic: No Cervical, Supraclavicular, or Inguinal Adenopathy Neurological: Cranial nerves II-XII grossly intact, Neuro grossly intact, Motor Exam 5/5 strength throughout Psych/Mental Status: Alert and oriented to time, place, person, mood and affect Microbiology Past 72 Hours 12/14/19 16:57 Mucosa - Nose Respiratory Panel (PCR) - Final Laboratory Results 12/14/19 16:45: WBC 7.4, RBC 4.26 L, Hgb 13.6, Hct 42.6, MCV 100.0 H, MCH 31.9, MCHC 31.9 L, RDW Std Deviation 56.1 H, RDW Coeff of Keisha 15.4 H, Plt Count 231, MPV 10.4, Immature Gran % (Auto) 0.300, Neut % (Auto) 68.0, Lymph % (Auto) 14.0 L, [place] % (Auto) 15.5 H, Eos % (Auto) 1.8, Baso % (Auto) 0.4, Absolute Neuts (auto) 5.0, Absolute Lymphs (auto) 1.04, Nucleated RBC % 0 12/14/19 16:45: Sodium Cancelled, Potassium Cancelled, Chloride Cancelled, Carbon Dioxide Cancelled, Anion Gap Cancelled, BUN Cancelled, Creatinine Cancelled, Estim Creat Clear Calc Cancelled, Est GFR (MDRD) Af Amer Cancelled, Est GFR (MDRD) Non-Af Cancelled, BUN/Creatinine Ratio Cancelled, Glucose Cancelled, Calcium Cancelled, Total Bilirubin Cancelled, AST Cancelled, ALT Cancelled, Alkaline Phosphatase Cancelled, Total Protein Cancelled, Albumin Cancelled, Globulin Cancelled, Albumin/Globulin Ratio Cancelled 12/14/19 16:45: PT 32.8 H, INR 3.3 12/14/19 16:57: COVID-19 (NAIF) Negative 12/14/19 17:15: Lactic Acid 2.3 H* 12/14/19 17:45: Sodium 138, Potassium 4.2, Chloride 101, Carbon Dioxide 32.0, Anion Gap 5, BUN 23 H, Creatinine 1.12, Estim Creat Clear Calc 61.63, Est GFR (MDRD) Af Amer 82, Est GFR (MDRD) Non-Af 68, BUN/Creatinine Ratio 20.5 H, Glucose 156 H, Calcium 8.9, Total Bilirubin 1.70 H, AST 14 L, ALT 14 L, Alkaline Phosphatase 86, Total Protein 7.7, Albumin 3.3, Globulin 4.4 H, Albumin/Globulin Ratio 0.8 L 12/14/19 22:16: Lactic Acid 0.9 12/14/19 23:27: POC Glucose 70 12/15/19 06:01: POC Glucose 96 12/15/19 06:05: PT 33.7 H, INR 3.4 12/15/19 06:05: Sodium 136, Potassium 4.1, Chloride 101, Carbon Dioxide 29.0, Anion Gap 6, BUN 19 H, Creatinine 0.84, Estim Creat Clear Calc 79.66, Est GFR (MDRD) Af Amer 115, Est GFR (MDRD) Non-Af 95, BUN/Creatinine Ratio 22.7 H, Glucose 91, Calcium 8.9, Lactate Dehydrogenase 214 12/15/19 06:05: WBC 7.7, RBC 4.13 L, Hgb 13.2, Hct 42.0, MCV 101.7 H, MCH 32.0, MCHC 31.4 L, RDW Std Deviation 56.4 H, RDW Coeff of Keisha 15.1 H, Plt Count 254, MPV 9.5, Immature Gran % (Auto) 0.600, Neut % (Auto) 66.7, Lymph % (Auto) 13.6 L , [place] % (Auto) 14.8 H, Eos % (Auto) 3.8, Baso % (Auto) 0.5, Absolute Neuts (auto) 5.2, Absolute Lymphs (auto) 1.05, Nucleated RBC % 0 12/15/19 08:21: Blood Type A NEGATIVE Current Medications Acetaminophen (Tylenol) 650 mg PO Q6H PRN PRN PRN Reason: Pain Score 1-10/Temp > 100.7 F Albuterol Sulfate (Ventolin Aerosols) 2.5 mg INHALATION Q2H PRN PRN PRN Reason: sob/wheezing Last Admin: 12/15/19 00:00 Dose: 2.5 mg Documented by: Albuterol/Ipratropium (Duoneb) 3 ml INHALATION Q6HWA.RT [facility] Last Admin: 12/15/19 06:51 Dose: 3 ml Documented by: Atorvastatin Calcium (Lipitor) 10 mg PO QHS [facility] Last Admin: 12/14/19 22:25 Dose: 10 mg Documented by: Dextrose (D50w Syringe) 0 gm IV X1 PRN; Protocol PRN Reason: Hypoglycemia Furosemide (Lasix) 40 mg PO BIDLX [facility] Last Admin: 12/15/19 08:18 Dose: 40 mg Documented by: Glucagon () 1 mg IM .X1 PRN PRN Reason: Hypoglycemia Sodium Chloride () 250 mls @ 15 mls/hr IV .[id number] PRN PRN Reason: Saline Flush Sodium Chloride () 250 mls @ 15 mls/hr IV .[id number] PRN PRN Reason: Additional IVPB Infusion Insulin Human Lispro (Humalog Kwikpen (Bkc)) 0 unit SC Q6 [facility]; Protocol Last Admin: 12/15/19 06:02 Dose: Not Given Documented by: Lisinopril (Zestril) 2.5 mg PO DAILY [facility] Last Admin: 12/15/19 08:20 Dose: 2.5 mg Documented by: Metoprolol Tartrate (Lopressor (Beta Denita)) 12.5 mg PO BID [facility] Last Admin: 12/15/19 08:18 Dose: 12.5 mg Documented by: Ondansetron HCl (Zofran) 4 mg IV Q8H PRN PRN PRN Reason: NAUSEA/VOMITING Prednisone () 40 mg PO DAILY@0800 [facility] Last Admin: 12/15/19 08:18 Dose: 40 mg Documented by: Sodium Chloride () 10 - 40 ml IV UD PRN PRN Reason: SALINE FLUSH Last Admin: 12/15/19 08:20 Dose: 10 ml Documented by: Clinical Impression(s) from Imaging Studies Chest X-Ray 12/14/19 17:55 IMPRESSION: Large left hemithorax opacity most likely represents effusion and atelectasis. An underlying pneumonia should be excluded clinically. Electronically Signed: Wagner Gonzalez, at 20:04 EDT Tel , Service support , Chest CT 12/14/19 18:16 IMPRESSION: Severe left lung consolidation and large pleural effusion. Electronically Signed: Jitendra Mc MD at 19:23 EDT , Service support , Assessment/Plan All Active Problems (Last Reviewed 12/14/19 @ 20:[address] Stevie Gomez MD) Pleural effusion on left (Acute) Hypoxia (Acute) Atrial fibrillation with RVR (Acute) Lactic acidosis (Acute) RECOMMENDATIONS: 1. Administer FFP 2. Obtain diagnostic and therapeutic thoracentesis 3. Possibly repeat CT scan if found to be exudate 4. Wean oxygen as tolerated. Walking oximetry prior to discharge 5. Outpatient complete PFT IMPRESSIONS: 1. Acute hypoxic respiratory insufficiency secondary to left pleural effusion Patient with possible etiology of both transudate and exudate in nature. Patient does have extensive smoking history, so malignant pleural effusion is a consideration. Patient also has extensive heart disease that may lead to a transudate physiology. Agree with obtaining diagnostic and therapeutic thoracentesis. Further recommendations following analysis. 2. Probable COPD/tobacco abuse High clinical suspicion for underlying COPD. Patient should have a complete pulmonary function test and walking oximetry as an outpatient. Unclear if this episode indicates a COPD exacerbation. Patient likely is has decreased respiratory reserve to tolerate large pleural effusion. Would not recommend s teroids given concomitant diabetes mellitus and lack of other constitutional symptoms. Okay to continue with bronchodilators. 3. A. fib with RVR/diabetes mellitus/hyperlipidemia/hypertension/advanced age/obesity Complicates care, management, recovery and prognosis. Okay to continue with baseline medications from my perspective. Inpatient E&M: 63584 Init Hosp L3
[2019-12-15 11:55] LABS: Bedside Glucose 120 mg/dL (70-110)
--- NOTE | 2019-12-15 13:31 | PCM.PN.HOSP ---
Patient Problems: Active and Suspected Problems (Last Reviewed 12/14/19 @ 20:[address] Stevie Gomez MD) Pleural effusion on left (Acute) Hypoxia (Acute) Atrial fibrillation with RVR (Acute) Lactic acidosis (Acute) Subjective: Patient seen and examined. he was admitted with a complaint of shortness of breath, and was found to have left pleural effusion. He has no complaints this morning. Shortness of breath is much better. He denies any cough, chest pain, fever or chills. he denies palpitations, dizziness, nausea, chest pain or vomiting. He does have an extensive history of smoking, at least 40 pack years. Patient has no complaints this morning. Shortness of breath is better. He denies any chest pain and denies any cough, any nausea vomiting or diarrhea. Review of systems otherwise negative. Patient did not receive any FFP or vitamin K when he was admitted to reverse INR. INR was 3.4 on admission and is now 3.3. Vitals/I&O's: Vital Signs Temp Pulse Resp BP Pulse Ox 98.1 F 90 18 99/57 L 95 12/15/19 12:51 12/15/19 12:51 12/15/19 12:51 12/15/19 12:51 12/15/19 12:51 Oxygen Flow Rate (L/min) 4 Oxygen Delivery Method Nasal Cannula Weight: 239 lb 6.752 oz Body Mass Index (BMI) 34.3 Intake and Output for Last 24 Hours 12/13/19 12/14/19 12/15/19 23:59 23:59 23:59 Intake Total 400 / 400 Balance 400 / 400 General: Alert, Oriented x3, Cooperative, No apparent distress HEENT: Atraumatic, PERRLA, EOMI, Normocephalic Oral: Moist Mucosa Neck: Supple, No JVD, Negative Carotid Bruits Lungs: - - markedly reduced breath sounds in left lower lung steiner; decreased tactile and vocal fremitus. on 4L of oxygen Cardiovascular: Normal S1, Normal S2, No murmurs, Irregular Rate - afib, rate controlled Abdomen: Bowel Sounds Present, Soft, Non Tender Extremities: No clubbing, No cyanosis, No edema, Capillary Refill Less than 3 Seconds Skin: No rashes, No breakdown Musculoskeletal: No Tenderness to Palpation of Joints or Extremities Lymphatic: No Cervical, Supraclavicular, or Inguinal Adenopathy Neurological: Cranial nerves II-XII grossly intact Psych/Mental Status: Normal Affect, Appropriate, Alert and oriented to time, place, person, mood and affect Microbiology Past 72 Hours 12/14/19 16:57 Mucosa - Nose Respiratory Panel (PCR) - Final Laboratory Results 12/14/19 16:45: WBC 7.4, RBC 4.26 L, Hgb 13.6, Hct 42.6, MCV 100.0 H, MCH 31.9, MCHC 31.9 L, RDW Std Deviation 56.1 H, RDW Coeff of Keisha 15.4 H, Plt Count 231, MPV 10.4, Immature Gran % (Auto) 0.300, Neut % (Auto) 68.0, Lymph % (Auto) 14.0 L, [place] % (Auto) 15.5 H, Eos % (Auto) 1.8, Baso % (Auto) 0.4, Absolute Neuts (auto) 5.0, Absolute Lymphs (auto) 1.04, Nucleated RBC % 0 12/14/19 16:45: Sodium Cancelled, Potassium Cancelled, Chloride Cancelled, Carbon Dioxide Cancelled, Anion Gap Cancelled, BUN Cancelled, Creatinine Cancelled, Estim Creat Clear Calc Cancelled, Est GFR (MDRD) Af Amer Cancelled, Est GFR (MDRD) Non-Af Cancelled, BUN/Creatinine Ratio Cancelled, Glucose Cancelled, Calcium Cancelled, Total Bilirubin Cancelled, AST Cancelled, ALT Cancelled, Alkaline Phosphatase Cancelled, Total Protein Cancelled, Albumin Cancelled, Globulin Cancelled, Albumin/Globulin Ratio Cancelled 12/14/19 16:45: PT 32.8 H, INR 3.3 12/14/19 16:57: COVID-19 (NAIF) Negative 12/14/19 17:15: Lactic Acid 2.3 H* 12/14/19 17:45: Sodium 138, Potassium 4.2, Chloride 101, Carbon Dioxide 32.0, Anion Gap 5, BUN 23 H, Creatinine 1.12, Estim Creat Clear Calc 61.63, Est GFR (MDRD) Af Amer 82, Est GFR (MDRD) Non-Af 68, BUN/Creatinine Ratio 20.5 H, Glucose 156 H, Calcium 8.9, Total Bilirubin 1.70 H, AST 14 L, ALT 14 L, Alkaline Phosphatase 86, Total Protein 7.7, Albumin 3.3, Globulin 4.4 H, Albumin/Globulin Ratio 0.8 L 12/14/19 22:16: Lactic Acid 0.9 12/14/19 23:27: POC Glucose 70 12/15/19 06:01: POC Glucose 96 12/15/19 06:05: PT 33.7 H, INR 3.4 12/15/19 06:05: Sodium 136, Potassium 4.1, Chloride 101, Carbon Dioxide 29.0, Anion Gap 6, BUN 19 H, Creatinine 0.84, Estim Creat Clear Calc 79.66, Est GFR (MDRD) Af Amer 115, Est GFR (MDRD) Non-Af 95, BUN/Creatinine Ratio 22.7 H, Glucose 91, Calcium 8.9, Lactate Dehydrogenase 214 12/15/19 06:05: WBC 7.7, RBC 4.13 L, Hgb 13.2, Hct 42.0, MCV 101.7 H, MCH 32.0, MCHC 31.4 L, RDW Std Deviation 56.4 H, RDW Coeff of Keisha 15.1 H, Plt Count 254, MPV 9.5, Immature Gran % (Auto) 0.600, Neut % (Auto) 66.7, Lymph % (Auto) 13.6 L, [place] % (Auto) 14.8 H, Eos % (Auto) 3.8, Baso % (Auto) 0.5, Absolute Neuts (auto) 5.2, Absolute Lymphs (auto) 1.05, Nucleated RBC % 0 12/15/19 08:21: Blood Type A NEGATIVE 12/15/19 11:49: POC Glucose 120 H 12/15/19 12:41: PT Pending, INR Pending Diagnostic Data Chest X-Ray 12/14/19 17:55 IMPRESSION: Large left hemithorax opacity most likely represents effusion and atelectasis. An underlying pneumonia should be excluded clinically. Electronically Signed: Wagner Gonzalez, at 20:04 EDT Tel , Service support , Chest CT 12/14/19 18:16 IMPRESSION: Severe left lung consolidation and large pleural effusion. Electronically Signed: Jitendra Mc MD at 19:23 EDT , Service support , Current Medications Acetaminophen (Tylenol) 650 mg PO Q6H PRN PRN PRN Reason: Pain Score 1-10/Temp > 100.7 F Albuterol Sulfate (Ventolin Aerosols) 2.5 mg INHALATION Q2H PRN PRN PRN Reason: sob/wheezing Last Admin: 12/15/19 00:00 Dose: 2.5 mg Documented by: Albuterol/Ipratropium (Duoneb) 3 ml INHALATION Q6HWA.RT [facility] Last Admin: 12/15/19 12:45 Dose: 3 ml Documented by: Atorvastatin Calcium (Lipitor) 10 mg PO QHS [facility] Last Admin: 12/14/19 22:25 Dose: 10 mg Documented by: Dextrose (D50w Syringe) 0 gm IV X1 PRN; Protocol PRN Reason: Hypoglycemia Furosemide (Lasix) 40 mg PO BIDLX [facility] Last Admin: 12/15/19 08:18 Dose: 40 mg Documented by: Glucagon () 1 mg IM .X1 PRN PRN Reason: Hypoglycemia Sodium Chloride () 250 mls @ 15 mls/hr IV .[id number] PRN PRN Reason: Saline Flush Sodium Chloride () 250 mls @ 15 mls/hr IV .[id number] PRN PRN Reason: Additional IVPB Infusion Insulin Human Lispro (Humalog Kwikpen (Bkc)) 0 unit SC Q6 [facility]; Protocol Last Admin: 12/15/19 11:51 Dose: Not Given Documented by: Lisinopril (Zestril) 2.5 mg PO DAILY [facility] Last Admin: 12/15/19 08:20 Dose: 2.5 mg Documented by: Metoprolol Tartrate (Lopressor (Beta Denita)) 12.5 mg PO BID [facility] Last Admin: 12/15/19 08:18 Dose: 12.5 mg Documented by: Ondansetron HCl (Zofran) 4 mg IV Q8H PRN PRN PRN Reason: NAUSEA/VOMITING Prednisone () 40 mg PO DAILY@0800 [facility] Last Admin: 12/15/19 08:18 Dose: 40 mg Documented by: Sodium Chloride () 10 - 40 ml IV UD PRN PRN Reason: SALINE FLUSH Last Admin: 12/15/19 08:20 Dose: 10 ml Documented by: STROKE Vital Signs/Narrative: Vital Signs Temp Pulse Resp BP Pulse Ox 12/15/19 12:51 98.1 F 90 18 99/57 L 95 12/15/19 12:45 88 20 H 12/15/19 12:19 98.1 F 90 18 99/57 L 95 12/15/19 12:05 98.1 F 92 18 105/62 98 12/15/19 10:53 98.2 F 86 17 98/66 94 12/15/19 10:51 98.3 F 91 18 101/42 L 95 12/15/19 10:25 97.5 F L 86 18 113/55 L 97 Medical Necessity - Tobacco Use Smoking Status: Former smoker Tobacco Use: Cigarettes Assessment/Plan All Active Problems (Last Reviewed 12/14/19 @ 20:[address] Stevie Gomez MD) Pleural effusion on left (Acute) Hypoxia (Acute) Atrial fibrillation with RVR (Acute) Lactic acidosis (Acute) 1. Acute hypoxic respiratory failure Due to left-sided massive pleural effusion. There is also lung consolidation.Per discussion with high school music director, he thinks that it is all due to compression of the lung and does not think patient needs antibiotics. Currently on 4 L of oxygen. Usually does not wear oxygen at home. Titrate oxygen to maintain saturation above 90%. Breathing treatment with bronchodilators. 2. Left pleural effusion CT of the chest showed severe left lung consolidation and large pleural effusion. INR was 3.3 today. Given FFP's this morning to bring INR down. since INR is>1.8, thoracentesis will likely need to be done Wednesday will need a diagnostic thoracentesis to see whether fluid is exudative or transudative, and check cytology for malignant cells in light of his extensive smoking history COVID test was negative 3. A. fib with RVR: Heart rate was in the 120s on admission. Heart rate is now down to normal. Coumadin on hold for thoracentesis. On metoprolol. 4. Type 2 diabetes mellitus: Metformin on hold on account of lactic acidosis on admission. On insulin sliding scale. Accu-Cheks AC at bedtime. Glimepiride also on hold. Will resume Invokana or glyburide.. 5. Nicotine dependence: Patient quit 1 week ago. Has about a [id number] smoking history. Nicotine patch. 6. Hyperlipidemia: Statin. 7. Hypertension: On lisinopril and metoprolol. 8. Acute DVT prophylaxis: SCDs. CODE STATUS: Full code Inpatient E&M: 77804 Subs Hosp L3
[2019-12-15 13:42] LABS: International Normalized Ratio 2.6; Prothrombin Time (Protime)PT. 27.5 SECONDS (11.7-14.9)
[2019-12-15 14:22] LABS: International Normalized Ratio 2.3
--- NOTE | 2019-12-15 14:36 | CASEMGMT ---
Addendum entered by Eleni Levi 12/15/19 16:30: Pts PCP is actually Steven, entered as Yobany accidentily. SStaten RN STEVO Original Note: RN STEVO assessment: Face to Face with patient for initial transition planning/care coordination assessment. RN STEVO introduced self and role at [facility], pt voices understanding and consents to assessment at this time. Pt is sitting up on side of bed in no distress with 4 liters nasal cannula in mouth instead of nose. When asked about this, pt states 'I get more air that way.' Pt is A/Ox4 at this time and answers all questions appropriately at this time. Care providers, pharmacy, and demographics verified/updated at this time. Presentation: Increased SOB for 5 days w/ chills, no fever Admitting dx: Left pleural effusion PCP: Yobany Specialists: rick Jiang Preferred Pharmacy: [facility] Insurance: [facility] Prescription Benefit: [facility] Living Will/HPOA: Pt states has LW/HPOA and states that he brought them into cardio office and wonders why they are not on file here. Pt states that his , Neha Duran, is HPOA. Call to [facility] at cardio office and she states that they do not have any AD's on file for pt at this time. LNOK: Neha Duran, /HPOA Living Arrangements: Pt states lives with in 1 story home and states no concerns at home at this time. Pt states is independent with ADL's. Transportation: Pt states drives self and states no transportation concerns at this time. DME/HHC: Pt states has a hoveround and grab bars but states need for nebulizer at discharge, Dr. Gonzalez aware. Pt may need home oxygen but pt states 'I don't really want to go home with that and you can't force me. I have pt rights.' This RN STEVO advised pt that it is always his decision but that we are just trying to make sure that he has everything he needs at home to be safe/healthy. Pt voices understanding and states 'That's why you all are so good here.' Pt agreeable to [facility] for nebulizer. Green sheet left on chart for nebulizer and possible home oxygen, if pt qualifies and is agreeable. Pt states no hx of HHC or SNF in the past. Pt states no concerns with going home at time of discharge. Pt states is retired. Pt states quit smoking 1.5 weeks ago and does not drink ETOH. Pt states no further concerns/needs at this time. CM to follow for home oxygen qualification and any further discharge planning/needs. Advised pt to ask for CM if any further questions/concerns/needs arise, voices understanding. Pt Goal: Home Plan: Home SStcole MORALEZ CM
[2019-12-15 17:25] LABS: Bedside Glucose 174 mg/dL (70-110)
[2019-12-15] MEDS: Atorvastatin Calcium 10 MG Tablet PO (21:41)
[2019-12-16] VITALS (16 sets, daily range): BP systolic 101–123; BP diastolic 53–72; PULSE 86–152; RESP 16–18; TEMP 36.4–37.1; O2SAT 77–95
[2019-12-16 00:05] LABS: Bedside Glucose 131 mg/dL (70-110)
[2019-12-16 05:35] LABS: Bedside Glucose 107 mg/dL (70-110)
[2019-12-16 05:38] LABS: Absolute Neutrophil Count 5.8 X10^3/uL (2.0-7.7); Basophil# 0.02 X10^3/uL; Basophil% 0.2 % (0-1); Eosinophil# 0.09 X10^3/uL; Eosinophils% 1.1 % (0-5); Hematocrit 39.2 % (40-54); Hemoglobin 12.2 g/dL (13.0-16.5); Lymphocyte % 13.2 % (19-41); Mean Corp Hgb Conc 31.1 g/dL (32-36); Mean Corpuscular Hgb 31.5 pg (27.0-32.0); Mean Corpuscular Volume 101.3 fL (80-94); Mean Platelet Vol. 9.5 fl (6.2-12.0); Monocyte% 15.6 % (0-10); NRBC Flagged by Analyzer 0 % (0-5); Neutrophil % 69.5 % (47-70); Platelet Count 227 K/mm3 (150-450); RBC Distribution Width CV 14.9 % (11.6-14.6); RBC Distribution Width SD 54.9 fl (35.1-43.9); Red Blood Count 3.87 M/mm3 (4.6-6.2); White Blood Count 8.3 K/mm3 (4.4-11.0)
[2019-12-16 05:57] LABS: Anion Gap 6 (5-15); BUN 25 mg/dL (7-18); BUN/Creat Ratio 26.2 RATIO (10-20); Calcium,Total 8.9 mg/dL (8.5-10.1); Chloride 98 mmol/L (98-107); Creatinine, Serum 0.96 mg/dL (0.70-1.30); EST Glomerular Filtration Rate 82 mL/min (>60); Est Glom Filt Rate - Afr Amer 99 mL/min (>60); Glucose 98 mg/dL (74-106); Potassium 4.5 mmol/L (3.5-5.1); Sodium Level 136 mmol/L (136-145)
[2019-12-16 06:04] LABS: International Normalized Ratio 2.4; Prothrombin Time (Protime)PT. 26.1 SECONDS (11.7-14.9)
[2019-12-16] MEDS: Ipratropium/Albuterol Sulfate 3 ML AMPUL.NEB INHALATION ×3 (07:08→18:40)
--- NOTE | 2019-12-16 07:25 | PCM.PN.PUL ---
Patient Problems: Active and Suspected Problems (Last Reviewed 12/14/19 @ 20:[address] Stevie Gomez MD) Pleural effusion on left (Acute) Hypoxia (Acute) Atrial fibrillation with RVR (Acute) Lactic acidosis (Acute) Subjective: Patient did okay overnight. Unfortunately, patient's INR only dropped to 2.3, so thoracentesis could not be completed yesterday. Patient continues to require supplemental oxygen to maintain appropriate saturations, but subjectively is unchanged compared to previous. - Physical Exam Vitals/I&O's: Vital Signs Temp Pulse Resp BP Pulse Ox 36.7 C 97 18 103/61 92 12/16/19 06:25 12/16/19 06:48 12/16/19 06:25 12/16/19 06:25 12/16/19 06:25 Oxygen Flow Rate (L/min) 4 Oxygen Delivery Method Nasal Cannula Weight: 108.6 kg Body Mass Index (BMI) 34.3 Intake and Output for Last 24 Hours 12/14/19 12/15/19 12/16/19 23:59 23:59 23:59 Intake Total 900 / 900 500 / 500 Balance 900 / 900 500 / 500 General: Alert, Oriented x3, Cooperative, No apparent distress, Well developed, Well nourished, - - Obese. Speaking full sentences. HEENT: Atraumatic, PERRLA, EOMI, Normocephalic, - - No scleral icterus or injection noted Oral: Moist Mucosa, No Gingival or Mucosal Lesions/ Ulcerations Neck: Supple, No JVD, No Nodes, Trachea Midline Lungs: Diminished - Little to no air movement on the left. Dullness to percussion throughout the left hemithorax. Right is normal Cardiovascular: Normal S1, Normal S2, No murmurs, Irregular Rate, No rub noted, No Gallop Abdomen: Bowel Sounds Present, Soft, Non Tender, Non-Distended, Obese Extremities: No clubbing, No cyanosis, Capillary Refill Less than 3 Seconds Skin: No rashes, No breakdown Musculoskeletal: No Tenderness to Palpation of Joints or Extremities Lymphatic: No Cervical, Supraclavicular, or Inguinal Adenopathy Neurological: Cranial nerves II-XII grossly intact, Neuro grossly intact, Motor Exam 5/5 strength throughout Psych/Mental Status: Alert and oriented to time, place, person, mood and affect Microbiology Past 72 Hours 12/14/19 16:57 Mucosa - Nose Respiratory Panel (PCR) - Final Laboratory Results 12/15/19 08:21: Blood Type A NEGATIVE 12/15/19 11:49: POC Glucose 120 H 12/15/19 12:41: PT 27.5 H, INR 2.6 12/15/19 14:07: PT 25.0 H, INR 2.3 12/15/19 17:19: POC Glucose 174 H 12/15/19 23:45: POC Glucose 131 H 12/16/19 05:10: WBC 8.3, RBC 3.87 L, Hgb 12.2 L, Hct 39.2 L, MCV 101.3 H, MCH 31.5, MCHC 31.1 L, RDW Std Deviation 54.9 H, RDW Coeff of Keisha 14.9 H, Plt Count 227, MPV 9.5, Immature Gran % (Auto) 0.400, Neut % (Auto) 69.5, Lymph % (Auto) 13.2 L, [place] % (Auto) 15.6 H, Eos % (Auto) 1.1, Baso % (Auto) 0.2, Absolute Neuts (auto) 5.8, Absolute Lymphs (auto) 1.10, Nucleated RBC % 0 12/16/19 05:10: PT 26.1 H, INR 2.4 12/16/19 05:10: Sodium 136, Potassium 4.5, Chloride 98, Carbon Dioxide 32.0, Anion Gap 6, BUN 25 H, Creatinine 0.96, Estim Creat Clear Calc 69.70, Est GFR (MDRD) Af Amer 99, Est GFR (MDRD) Non-Af 82, BUN/Creatinine Ratio 26.2 H, Glucose 98, Calcium 8.9 12/16/19 05:23: POC Glucose 107 Current Medications Acetaminophen (Tylenol) 650 mg PO Q6H PRN PRN PRN Reason: Pain Score 1-10/Temp > 100.7 F Albuterol Sulfate (Ventolin Aerosols) 2.5 mg INHALATION Q2H PRN PRN PRN Reason: sob/wheezing Last Admin: 12/15/19 00:00 Dose: 2.5 mg Documented by: Albuterol/Ipratropium (Duoneb) 3 ml INHALATION Q6HWA.RT [facility] Last Admin: 12/16/19 07:08 Dose: 3 ml Documented by: Atorvastatin Calcium (Lipitor) 10 mg PO QHS [facility] Last Admin: 12/15/19 21:41 Dose: 10 mg Documented by: Dextrose (D50w Syringe) 0 gm IV X1 PRN; Protocol PRN Reason: Hypoglycemia Furosemide (Lasix) 40 mg IV Q8 [facility] Glucagon () 1 mg IM .X1 PRN PRN Reason: Hypoglycemia Sodium Chloride () 250 mls @ 15 mls/hr IV .[id number] PRN PRN Reason: Saline Flush Sodium Chloride () 250 mls @ 15 mls/hr IV .[id number] PRN PRN Reason: Additional IVPB Infusion Insulin Human Lispro (Humalog Kwikpen (Bkc)) 0 unit SC Q6 [facility]; Protocol Last Admin: 12/16/19 05:54 Dose: Not Given Documented by: Lisinopril (Zestril) 2.5 mg PO DAILY [facility] Last Admin: 12/15/19 08:20 Dose: 2.5 mg Documented by: Metoprolol Tartrate (Lopressor (Beta Denita)) 12.5 mg PO BID [facility] Last Admin: 12/15/19 21:41 Dose: 12.5 mg Documented by: Ondansetron HCl (Zofran) 4 mg IV Q8H PRN PRN PRN Reason: NAUSEA/VOMITING Phytonadione (Phytonadione) 5 mg PO X1 ONE Stop: 12/16/19 07:25 Prednisone () 40 mg PO DAILY@0800 [facility] Last Admin: 12/15/19 08:18 Dose: 40 mg Documented by: Sodium Chloride () 10 - 40 ml IV UD PRN PRN Reason: SALINE FLUSH Last Admin: 12/15/19 08:20 Dose: 10 ml Documented by: Medical Necessity - Tobacco Use Smoking Status: Former smoker Tobacco Use: Cigarettes Assessment/Plan All Active Problems (Last Reviewed 12/14/19 @ 20:[address] Stevie Gomez MD) Pleural effusion on left (Acute) Hypoxia (Acute) Atrial fibrillation with RVR (Acute) Lactic acidosis (Acute) RECOMMENDATIONS: 1. Hold Coumadin 2. Obtain diagnostic and therapeutic thoracentesis when INR acceptable 3. Possibly repeat CT scan if found to be exudate 4. Wean oxygen as tolerated. Walking oximetry prior to discharge 5. Outpatient complete PFT 6. Increase diuretic therapy IMPRESSIONS: 1. Acute hypoxic respiratory insufficiency secondary to left pleural effusion Patient with possible etiology of both transudate and exudate in nature. Patient does have extensive smoking history, so malignant pleural effusion is a consideration. Patient also has extensive heart disease that may lead to a transudate physiology. Agree with obtaining diagnostic and therapeutic thoracentesis. Further recommendations following analysis. Given coagulopathy, will diurese over the weekend with possible thoracentesis on Wednesday. 2. Probable COPD/tobacco abuse High clinical suspicion for underlying COPD. Patient should have a complete pulmonary function test and walking oximetry as an outpatient. Unclear if this episode indicates a COPD exacerbation. Patient likely is has decreased respiratory reserve to tolerate large pleural effusion. Would not recommend steroids given concomitant diabetes mellitus and lack of other constitutional symptoms to suggest a COPD exacerbation. Okay to continue with bronchodilators. 3. A. fib with RVR/diabetes mellitus/hyperlipidemia/hypertension/advanced age/obesity Complicates care, management, recovery and prognosis. Okay to continue with baseline medications from my perspective. Inpatient E&M: 95843 Subs Hosp L2
[2019-12-16] MEDS: predniSONE 20 MG Tablet 40 MG PO (07:33)
--- NOTE | 2019-12-16 07:45 | CPS ---
PT HAD O2 OFF POST GOING TO BATHROOM. PT WAS PLACED BACK ON 02 AND SATURATION CAME UP TO 97% ON 3 LPM.
[2019-12-16] MEDS: Metoprolol Tartrate 25 MG Tablet 12.5 MG PO ×2 (09:00→22:54)
[2019-12-16] MEDS: Lisinopril 2.5 MG Tablet PO (09:00)
[2019-12-16] MEDS: Phytonadione (Vit K1) 5 MG TABLET PO (09:00)
--- NOTE | 2019-12-16 10:28 | PCM.PN.HOSP ---
Patient Problems: Active and Suspected Problems (Last Reviewed 12/14/19 @ 20:[address] Stevie Gomez MD) Pleural effusion on left (Acute) Hypoxia (Acute) Atrial fibrillation with RVR (Acute) Lactic acidosis (Acute) Subjective: Patient seen and examined. He has no complaints this morning. Shortness of breath is better with oxygen that he is receiving. Patient keeps his oxygen prongs in his mouth because he states his nose has been broken many times so he finds it difficult to breathe through his nose and is a mouth breather. Review of systems otherwise negative. He has remained hemodynamically stable and is on 3 L of oxygen. Vitals/I&O's: Vital Signs Temp Pulse Resp BP Pulse Ox 98.8 F 100 18 122/72 H 95 12/16/19 08:59 12/16/19 09:00 12/16/19 08:59 12/16/19 09:00 12/16/19 08:59 Oxygen Flow Rate (L/min) 3 Oxygen Delivery Method Nasal Cannula Weight: 239 lb 6.752 oz Body Mass Index (BMI) 34.3 Intake and Output for Last 24 Hours 12/14/19 12/15/19 12/16/19 23:59 23:59 23:59 Intake Total 900 / 900 500 / 500 Balance 30 / 30 900 / 900 500 / 500 General: Alert, Oriented x3, Cooperative, No apparent distress HEENT: Atraumatic, PERRLA, EOMI, Normocephalic Oral: Moist Mucosa Neck: Supple, No JVD, Negative Carotid Bruits Lungs: - - markedly reduced breath sounds in left lower lung steiner; decreased tactile and vocal fremitus. on 3L of oxygen Cardiovascular: Normal S1, Normal S2, No murmurs, Irregular Rate - afib, rate controlled Abdomen: Bowel Sounds Present, Soft, Non Tender Extremities: No clubbing, No cyanosis, No edema, Capillary Refill Less than 3 Seconds Skin: No rashes, No breakdown Musculoskeletal: No Tenderness to Palpation of Joints or Extremities Lymphatic: No Cervical, Supraclavicular, or Inguinal Adenopathy Neurological: Cranial nerves II-XII grossly intact Psych/Mental Status: Normal Affect, Appropriate, Alert and oriented to time, place, person, mood and affect Microbiology Past 72 Hours 12/14/19 16:57 Mucosa - Nose Respiratory Panel (PCR) - Final Laboratory Results 12/15/19 11:49: POC Glucose 120 H 12/15/19 12:41: PT 27.5 H, INR 2.6 12/15/19 14:07: PT 25.0 H, INR 2.3 12/15/19 17:19: POC Glucose 174 H 12/15/19 23:45: POC Glucose 131 H 12/16/19 05:10: WBC 8.3, RBC 3.87 L, Hgb 12.2 L, Hct 39.2 L, MCV 101.3 H, MCH 31.5, MCHC 31.1 L, RDW Std Deviation 54.9 H, RDW Coeff of Keisha 14.9 H, Plt Count 227, MPV 9.5, Immature Gran % (Auto) 0.400, Neut % (Auto) 69.5, Lymph % (Auto) 13.2 L, [place] % (Auto) 15.6 H, Eos % (Auto) 1.1, Baso % (Auto) 0.2, Absolute Neuts (auto) 5.8, Absolute Lymphs (auto) 1.10, Nucleated RBC % 0 12/16/19 05:10: PT 26.1 H, INR 2.4 12/16/19 05:10: Sodium 136, Potassium 4.5, Chloride 98, Carbon Dioxide 32.0, Anion Gap 6, BUN 25 H, Creatinine 0.96, Estim Creat Clear Calc 69.70, Est GFR (MDRD) Af Amer 99, Est GFR (MDRD) Non-Af 82, BUN/Creatinine Ratio 26.2 H, Glucose 98, Calcium 8.9 12/16/19 05:23: POC Glucose 107 Diagnostic Data Chest X-Ray 12/14/19 17:55 IMPRESSION: Large left hemithorax opacity most likely represents effusion and atelectasis. An underlying pneumonia should be excluded clinically. Electronically Signed: Wagner Gonzalez, at 20:04 EDT Tel , Service support , Chest CT 12/14/19 18:16 IMPRESSION: Severe left lung consolidation and large pleural effusion. Electronically Signed: Jitendra Mc MD at 19:23 EDT , Service support , Current Medications Acetaminophen (Tylenol) 650 mg PO Q6H PRN PRN PRN Reason: Pain Score 1-10/Temp > 100.7 F Albuterol/Ipratropium (Duoneb) 3 ml INHALATION Q6HWA.RT [facility] Last Admin: 12/16/19 07:08 Dose: 3 ml Documented by: Atorvastatin Calcium (Lipitor) 10 mg PO QHS [facility] Last Admin: 12/15/19 21:41 Dose: 10 mg Documented by: Dextrose (D50w Syringe) 0 gm IV X1 PRN; Protocol PRN Reason: Hypoglycemia Furosemide (Lasix) 40 mg IV Q8 [facility] Glucagon () 1 mg IM .X1 PRN PRN Reason: Hypoglycemia Sodium Chloride () 250 mls @ 15 mls/hr IV .[id number] PRN PRN Reason: Saline Flush Sodium Chloride () 250 mls @ 15 mls/hr IV .[id number] PRN PRN Reason: Additional IVPB Infusion Insulin Human Lispro (Humalog Kwikpen (Bkc)) 0 unit SC Q6 [facility]; Protocol Last Admin: 12/16/19 05:54 Dose: Not Given Documented by: Lisinopril (Zestril) 2.5 mg PO DAILY [facility] Last Admin: 12/16/19 09:00 Dose: 2.5 mg Documented by: Metoprolol Tartrate (Lopressor (Beta Denita)) 12.5 mg PO BID [facility] Last Admin: 12/16/19 09:00 Dose: 12.5 mg Documented by: Ondansetron HCl (Zofran) 4 mg IV Q8H PRN PRN PRN Reason: NAUSEA/VOMITING Prednisone () 40 mg PO DAILY@0800 [facility] Last Admin: 12/16/19 07:33 Dose: 40 mg Documented by: Sodium Chloride () 10 - 40 ml IV UD PRN PRN Reason: SALINE FLUSH Last Admin: 12/15/19 08:20 Dose: 10 ml Documented by: STROKE Vital Signs/Narrative: Vital Signs Temp Pulse Resp BP Pulse Ox 12/16/19 09:00 100 122/72 H 12/16/19 08:59 98.8 F 100 18 122/72 H 95 12/16/19 07:04 104 H 16 77 12/16/19 06:48 97 Medical Necessity - Tobacco Use Smoking Status: Former smoker Tobacco Use: Cigarettes Assessment/Plan All Active Problems (Last Reviewed 12/14/19 @ 20:[address] Stevie Gomez MD) Pleural effusion on left (Acute) Hypoxia (Acute) Atrial fibrillation with RVR (Acute) Lactic acidosis (Acute) 1. Acute hypoxic respiratory failure Due to left-sided massive pleural effusion. There is also lung consolidation.Per discussion with community dietitian, he thinks that it is all due to compression of the lung and does not think patient needs antibiotics. Currently on 3 L of oxygen. Usually does not wear oxygen at home. Titrate oxygen to maintain saturation above 90%. Breathing treatment with bronchodilators. 2. Left pleural effusion CT of the chest showed severe left lung consolidation and large pleural effusion. INR is 2.4 today will give 5mg of vitamin K today; has already received 2 units of FFPs for diagnostic thoracentesis Wednesday COVID test was negative concerned that it may be due to malignancy due to patient's 40 pack year smoking history 3. A. fib was in RVR on admission; HR now down in low 100s, but goes up to 120s when he stands up and ambulates Coumadin on hold for thoracentesis. On metoprolol 12.5mg bid. WIll increase metoprolol to 25mg bid if HR remains elevated. 4. Type 2 diabetes mellitus: Metformin on hold on account of lactic acidosis on admission. On insulin sliding scale. Accu-Cheks AC at bedtime. Glimepiride also on hold. Will resume Invokana or glyburide.. 5. Nicotine dependence: Patient quit 1 week ago. Has about a [id number] smoking history. Nicotine patch. 6. Hyperlipidemia: Statin. 7. Hypertension: On lisinopril and metoprolol. 8. Acute DVT prophylaxis: SCDs. CODE STATUS: Full code Inpatient E&M: 75782 Subs Hosp L2
[2019-12-16 11:20] LABS: Bedside Glucose 145 mg/dL (70-110)
[2019-12-16] MEDS: 0.9% Saline Lock 10 ML Syringe IV ×2 (14:49→22:58)
[2019-12-16] MEDS: Furosemide 40 MG/4 ML Vial IV ×2 (14:49→22:54)
[2019-12-16 16:46] LABS: Bedside Glucose 248 mg/dL (70-110)
[2019-12-16] MEDS: Insulin Lispro 100 UNIT/ML INSULN.PEN SC (16:47)
[2019-12-16] MEDS: Atorvastatin Calcium 10 MG Tablet PO (22:55)
[2019-12-17] VITALS (13 sets, daily range): BP systolic 102–111; BP diastolic 60–66; PULSE 73–111; RESP 16–18; TEMP 36.7–37; O2SAT 94–96
[2019-12-17] MEDS: Insulin Lispro 100 UNIT/ML INSULN.PEN SC ×3 (00:23→16:12)
[2019-12-17 00:31] LABS: Bedside Glucose 192 mg/dL (70-110)
[2019-12-17] MEDS: Furosemide 40 MG/4 ML Vial IV ×3 (05:47→21:08)
[2019-12-17] MEDS: Acetaminophen 325 MG Tablet 650 MG PO (05:47)
[2019-12-17] MEDS: 0.9% Saline Lock 10 ML Syringe IV ×2 (05:48→14:46)
[2019-12-17 05:51] LABS: Absolute Lymphocyte Count 1.05 X10^3/uL (0.83-4.51); Basophil# 0.01 X10^3/uL; Basophil% 0.1 % (0-1); Eosinophil# 0.12 X10^3/uL; Eosinophils% 1.4 % (0-5); Hemoglobin 11.6 g/dL (13.0-16.5); Lymphocyte # 1.05 X10^3/ul (4.0); Lymphocyte % 12.3 % (19-41); Mean Corp Hgb Conc 30.5 g/dL (32-36); Mean Corpuscular Hgb 30.8 pg (27.0-32.0); Mean Corpuscular Volume 100.8 fL (80-94); Mean Platelet Vol. 9.3 fl (6.2-12.0); Monocyte# 1.32 X10^3/uL; Monocyte% 15.4 % (0-10); NRBC Flagged by Analyzer 0 % (0-5); Neutrophil # 6.03 X10^3/uL (2.7-7.7); Neutrophil % 70.6 % (47-70); Platelet Count 243 K/mm3 (150-450); RBC Distribution Width CV 14.6 % (11.6-14.6); RBC Distribution Width SD 54.3 fl (35.1-43.9); Red Blood Count 3.77 M/mm3 (4.6-6.2); White Blood Count 8.6 K/mm3 (4.4-11.0)
[2019-12-17 06:02] LABS: International Normalized Ratio 1.6; Prothrombin Time (Protime)PT. 18.5 SECONDS (11.7-14.9)
[2019-12-17 06:03] LABS: Anion Gap 5 (5-15); BUN 30 mg/dL (7-18); BUN/Creat Ratio 32.5 RATIO (10-20); Calcium,Total 8.7 mg/dL (8.5-10.1); Chloride 99 mmol/L (98-107); Creatinine, Serum 0.92 mg/dL (0.70-1.30); EST Glomerular Filtration Rate 85 mL/min (>60); Est Glom Filt Rate - Afr Amer 103 mL/min (>60); Estimated Creatinine Clearance 72.74 ml/min; Glucose 108 mg/dL (74-106); Potassium 4.1 mmol/L (3.5-5.1); Sodium Level 136 mmol/L (136-145)
[2019-12-17 06:06] LABS: Bedside Glucose 113 mg/dL (70-110)
[2019-12-17] MEDS: Ipratropium/Albuterol Sulfate 3 ML AMPUL.NEB INHALATION ×3 (07:03→19:10)
--- NOTE | 2019-12-17 07:41 | PN_ITS ---
Patient Problems: Active and Suspected Problems (Last Reviewed 12/14/19 @ 20:[address] Stevie Gomez MD) Pleural effusion on left (Acute) Hypoxia (Acute) Atrial fibrillation with RVR (Acute) Lactic acidosis (Acute) Subjective: Patient did well overnight. Patient is reporting subjective improvement in dyspnea over the last 24 hours. Patient denies any chest pain, but feels that he is getting more air in. - Physical Exam Vitals/I&O's: Vital Signs Temp Pulse Resp BP Pulse Ox 37.0 C 111 H 18 102/60 96 12/17/19 04:50 12/17/19 06:30 12/17/19 04:50 12/17/19 04:50 12/17/19 04:50 Oxygen Flow Rate (L/min) 3 Oxygen Delivery Method Nasal Cannula Weight: 108.6 kg Body Mass Index (BMI) 34.3 Intake and Output for Last 24 Hours 12/15/19 12/16/19 12/17/19 23:59 23:59 23:59 Intake Total 900 / 900 1580 / 1580 Output Total 1925 / 1925 850 / 850 Balance 900 / 900 -345 / -345 -850 / -850 General: Alert, Oriented x3, Cooperative, No apparent distress, - - No conversational dyspnea. Obese. HEENT: Atraumatic, PERRLA, EOMI, Normocephalic, - - No scleral icterus or injection noted Oral: Moist Mucosa, No Gingival or Mucosal Lesions/ Ulcerations Neck: Supple, No JVD, No Nodes, Trachea Midline Lungs: No rhonchi, No wheeze, No rales, Diminished - Better air exchange on the left chest, - - Decreased left-sided expansion. Continued dullness to percussion. Cardiovascular: Normal S1, Normal S2, No murmurs, Irregular Rate, No rub noted, No Gallop Abdomen: Bowel Sounds Present, Soft, Non Tender, Non-Distended, Obese Extremities: No clubbing, No cyanosis, Edema - Trace Skin: No rashes, No breakdown Musculoskeletal: No Tenderness to Palpation of Joints or Extremities Lymphatic: No Cervical, Supraclavicular, or Inguinal Adenopathy Neurological: Cranial nerves II-XII grossly intact, Neuro grossly intact, Motor Exam 5/5 strength throughout Psych/Mental Status: Alert and oriented to time, place, person, mood and affect Microbiology Past 72 Hours 12/14/19 17:15 Blood Culture (Wb) - Right Wrist Blood Culture - Preliminary No growth in 48 hours. 12/14/19 16:45 Blood Culture (Wb) - Anticubital Left Blood Culture - Preliminary No growth in 48 hours. 12/14/19 16:57 Mucosa - Nose Respiratory Panel (PCR) - Final Laboratory Results 12/16/19 11:11: POC Glucose 145 H 12/16/19 16:41: POC Glucose 248 H 12/17/19 00:21: POC Glucose 192 H 12/17/19 05:35: PT 18.5 H, INR 1.6 12/17/19 05:35: WBC 8.6, RBC 3.77 L, Hgb 11.6 L, Hct 38.0 L, MCV 100.8 H, MCH 30.8, MCHC 30.5 L, RDW Std Deviation 54.3 H, RDW Coeff of Keisha 14.6, Plt Count 243, MPV 9.3, Immature Gran % (Auto) 0.200, Neut % (Auto) 70.6 H, Lymph % (Auto) 12.3 L, [place] % (Auto) 15.4 H, Eos % (Auto) 1.4, Baso % (Auto) 0.1, Absolute Neuts (auto) 6.0, Absolute Lymphs (auto) 1.05, Nucleated RBC % 0 12/17/19 05:35: Sodium 136, Potassium 4.1, Chloride 99, Carbon Dioxide 32.0, Anion Gap 5, BUN 30 H, Creatinine 0.92, Estim Creat Clear Calc 72.74, Est GFR (MDRD) Af Amer 103, Est GFR (MDRD) Non-Af 85, BUN/Creatinine Ratio 32.5 H, Glucose 108 H, Calcium 8.7 12/17/19 05:45: POC Glucose 113 H Current Medications Acetaminophen (Tylenol) 650 mg PO Q6H PRN PRN PRN Reason: Pain Score 1-10/Temp > 100.7 F Last Admin: 12/17/19 05:47 Dose: 650 mg Documented by: Albuterol/Ipratropium (Duoneb) 3 ml INHALATION Q6HWA.RT [facility] Last Admin: 12/17/19 07:03 Dose: 3 ml Documented by: Atorvastatin Calcium (Lipitor) 10 mg PO QHS [facility] Last Admin: 12/16/19 22:55 Dose: 10 mg Documented by: Dextrose (D50w Syringe) 0 gm IV X1 PRN; Protocol PRN Reason: Hypoglycemia Furosemide (Lasix) 40 mg IV Q8 [facility] Last Admin: 12/17/19 05:47 Dose: 40 mg Documented by: Glucagon () 1 mg IM .X1 PRN PRN Reason: Hypoglycemia Sodium Chloride () 250 mls @ 15 mls/hr IV .[id number] PRN PRN Reason: Saline Flush Sodium Chloride () 250 mls @ 15 mls/hr IV .[id number] PRN PRN Reason: Additional IVPB Infusion Insulin Human Lispro (Humalog Kwikpen (Bkc)) 0 unit SC Q6 [facility]; Protocol Last Admin: 12/17/19 05:46 Dose: Not Given Documented by: Lisinopril (Zestril) 2.5 mg PO DAILY [facility] Last Admin: 12/16/19 09:00 Dose: 2.5 mg Documented by: Metoprolol Tartrate (Lopressor (Beta Denita)) 12.5 mg PO BID [facility] Last Admin: 12/16/19 22:54 Dose: 12.5 mg Documented by: Ondansetron HCl (Zofran) 4 mg IV Q8H PRN PRN PRN Reason: NAUSEA/VOMITING Prednisone () 40 mg PO DAILY@0800 [facility] Last Admin: 12/16/19 07:33 Dose: 40 mg Documented by: Sodium Chloride () 10 - 40 ml IV UD PRN PRN Reason: SALINE FLUSH Last Admin: 12/17/19 05:48 Dose: 10 ml Documented by: Medical Necessity - Tobacco Use Smoking Status: Former smoker Tobacco Use: Cigarettes Assessment/Plan All Active Problems (Last Reviewed 12/14/19 @ 20:[address] Stevie Gomez MD) Pleural effusion on left (Acute) Hypoxia (Acute) Atrial fibrillation with RVR (Acute) Lactic acidosis (Acute) RECOMMENDATIONS: 1. Continue to hold Coumadin 2. Obtain diagnostic and therapeutic thoracentesis tomorrow. Add LDH and protein the morning labs 3. Possibly repeat CT scan if found to be exudate 4. Wean oxygen as tolerated. Walking oximetry prior to discharge 5. Outpatient complete PFT 6. Continue diuretic therapy IMPRESSIONS: 1. Acute hypoxic respiratory insufficiency secondary to left pleural effusion Patient with possible etiology of both transudate and exudate in nature. Patient does have extensive smoking history, so malignant pleural effusion is a consideration. Patient also has extensive heart disease that may lead to a transudate physiology. Agree with obtaining diagnostic and therapeutic thoracentesis. Further recommendations following analysis. Given coagulopathy, will diurese over the weekend with possible thoracentesis on Wednesday. Add protein and LDH to morning labs for LIGHT's criteria 2. Probable COPD/tobacco abuse High clinical suspicion for underlying COPD. Patient should have a complete pulmonary function test and walking oximetry as an outpatient. Unclear if this episode indicates a COPD exacerbation. Patient likely is has decreased respiratory reserve to tolerate large pleural effusion. Would not recommend steroids given concomitant diabetes mellitus and lack of other constitutional symptoms to suggest a COPD exacerbation. Okay to continue with bronchodilators. 3. A. fib with RVR/diabetes mellitus/hyperlipidemia/hypertension/advanced age/obesity Complicates care, management, recovery and prognosis. Okay to continue with baseline medications from my perspective. Inpatient E&M: [id number] Subs Hosp L2
[2019-12-17] MEDS: predniSONE 20 MG Tablet 40 MG PO (08:08)
[2019-12-17] MEDS: Metoprolol Tartrate 25 MG Tablet 12.5 MG PO ×2 (08:52→21:08)
[2019-12-17] MEDS: Lisinopril 2.5 MG Tablet PO (08:52)
--- NOTE | 2019-12-17 11:08 | PN_ITS ---
Patient Problems: Active and Suspected Problems (Last Reviewed 12/14/19 @ 20:[address] Stevie Gomez MD) Pleural effusion on left (Acute) Hypoxia (Acute) Atrial fibrillation with RVR (Acute) Lactic acidosis (Acute) Subjective: Patient seen and examined. He has no complaints and denies shortness of breath. Review of systems otherwise negative. INR today is 1.6. For diagnostic thoracentesis tomorrow. Vitals/I&O's: Vital Signs Temp Pulse Resp BP Pulse Ox 98.0 F 89 18 110/60 95 12/17/19 08:50 12/17/19 08:52 12/17/19 08:50 12/17/19 08:50 12/17/19 08:50 Oxygen Flow Rate (L/min) 3 Oxygen Delivery Method Nasal Cannula Weight: 239 lb 6.752 oz Body Mass Index (BMI) 34.3 Intake and Output for Last 24 Hours 12/15/19 12/16/19 12/17/19 23:59 23:59 23:59 Intake Total 900 / 900 1580 / 1580 Output Total 1925 / 1925 850 / 850 Balance 900 / 900 -345 / -345 -850 / -850 General: Alert, Oriented x3, Cooperative, No apparent distress HEENT: Atraumatic, PERRLA, EOMI, Normocephalic Oral: Moist Mucosa Neck: Supple, No JVD, Negative Carotid Bruits Lungs: - - markedly reduced breath sounds in left lower lung steiner; decreased tactile and vocal fremitus. on 3L of oxygen Cardiovascular: Normal S1, Normal S2, No murmurs, Irregular Rate - afib, rate controlled Abdomen: Bowel Sounds Present, Soft, Non Tender Extremities: No clubbing, No cyanosis, No edema, Capillary Refill Less than 3 Seconds Skin: No rashes, No breakdown Musculoskeletal: No Tenderness to Palpation of Joints or Extremities Lymphatic: No Cervical, Supraclavicular, or Inguinal Adenopathy Neurological: Cranial nerves II-XII grossly intact Psych/Mental Status: Normal Affect, Appropriate, Alert and oriented to time, place, person, mood and affect Microbiology Past 72 Hours 12/14/19 17:15 Blood Culture (Wb) - Right Wrist Blood Culture - Preliminary No growth in 48 hours. 12/14/19 16:45 Blood Culture (Wb) - Anticubital Left Blood Culture - Preliminary No growth in 48 hours. 12/14/19 16:57 Mucosa - Nose Respiratory Panel (PCR) - Final Laboratory Results 12/16/19 11:11: POC Glucose 145 H 12/16/19 16:41: POC Glucose 248 H 12/17/19 00:21: POC Glucose 192 H 12/17/19 05:35: PT 18.5 H, INR 1.6 12/17/19 05:35: WBC 8.6, RBC 3.77 L, Hgb 11.6 L, Hct 38.0 L, MCV 100.8 H, MCH 30.8, MCHC 30.5 L, RDW Std Deviation 54.3 H, RDW Coeff of Keisha 14.6, Plt Count 243, MPV 9.3, Immature Gran % (Auto) 0.200, Neut % (Auto) 70.6 H, Lymph % (Auto) 12.3 L, [place] % (Auto) 15.4 H, Eos % (Auto) 1.4, Baso % (Auto) 0.1, Absolute Neuts (auto) 6.0, Absolute Lymphs (auto) 1.05, Nucleated RBC % 0 12/17/19 05:35: Sodium 136, Potassium 4.1, Chloride 99, Carbon Dioxide 32.0, Anion Gap 5, BUN 30 H, Creatinine 0.92, Estim Creat Clear Calc 72.74, Est GFR (MDRD) Af Amer 103, Est GFR (MDRD) Non-Af 85, BUN/Creatinine Ratio 32.5 H, Glucose 108 H, Calcium 8.7 12/17/19 05:45: POC Glucose 113 H Current Medications Acetaminophen (Tylenol) 650 mg PO Q6H PRN PRN PRN Reason: Pain Score 1-10/Temp > 100.7 F Last Admin: 12/17/19 05:47 Dose: 650 mg Documented by: Albuterol/Ipratropium (Duoneb) 3 ml INHALATION Q6HWA.RT [facility] Last Admin: 12/17/19 07:03 Dose: 3 ml Documented by: Atorvastatin Calcium (Lipitor) 10 mg PO QHS [facility] Last Admin: 12/16/19 22:55 Dose: 10 mg Documented by: Dextrose (D50w Syringe) 0 gm IV X1 PRN; Protocol PRN Reason: Hypoglycemia Furosemide (Lasix) 40 mg IV Q8 [facility] Last Admin: 12/17/19 05:47 Dose: 40 mg Documented by: Glucagon () 1 mg IM .X1 PRN PRN Reason: Hypoglycemia Sodium Chloride () 250 mls @ 15 mls/hr IV .[id number] PRN PRN Reason: Saline Flush Sodium Chloride () 250 mls @ 15 mls/hr IV .[id number] PRN PRN Reason: Additional IVPB Infusion Insulin Human Lispro (Humalog Kwikpen (Bkc)) 0 unit SC Q6 [facility]; Protocol Last Admin: 12/17/19 05:46 Dose: Not Given Documented by: Lisinopril (Zestril) 2.5 mg PO DAILY [facility] Last Admin: 12/17/19 08:52 Dose: 2.5 mg Documented by: Metoprolol Tartrate (Lopressor (Beta Denita)) 12.5 mg PO BID [facility] Last Admin: 12/17/19 08:52 Dose: 12.5 mg Documented by: Ondansetron HCl (Zofran) 4 mg IV Q8H PRN PRN PRN Reason: NAUSEA/VOMITING Prednisone () 40 mg PO DAILY@0800 [facility] Last Admin: 12/17/19 08:08 Dose: 40 mg Documented by: Sodium Chloride () 10 - 40 ml IV UD PRN PRN Reason: SALINE FLUSH Last Admin: 12/17/19 05:48 Dose: 10 ml Documented by: STROKE Vital Signs/Narrative: Vital Signs Temp Pulse Resp BP Pulse Ox 12/17/19 08:52 89 12/17/19 08:50 98.0 F 89 18 110/60 95 Medical Necessity - Tobacco Use Smoking Status: Former smoker Tobacco Use: Cigarettes Assessment/Plan All Active Problems (Last Reviewed 12/14/19 @ 20:[address] Stevie Gomez MD) Pleural effusion on left (Acute) Hypoxia (Acute) Atrial fibrillation with RVR (Acute) Lactic acidosis (Acute) 1. Acute hypoxic respiratory failure * Due to left-sided massive pleural effusion. There is also lung consolidation. * Currently on 3 L of oxygen. Usually does not wear oxygen at home. * Titrate oxygen to maintain saturation above 90%. Breathing treatment with bronchodilators. * 2. Left pleural effusion * CT of the chest showed severe left lung consolidation and large pleural effusion. * INR is 1.6 today * received 5mg of vitamin K; has already received 2 units of FFPs * for diagnostic thoracentesis on Wednesday * COVID test was negative * concerned that it may be due to malignancy due to patient's 40 pack year smoking history * 3. A. fib * HR is now better controlled. * Coumadin on hold for thoracentesis. * On metoprolol 12.5mg bid. * 4. Type 2 diabetes mellitus: * Metformin on hold on account of lactic acidosis on admission. * On insulin sliding scale. Accu-Cheks AC at bedtime. * gliburide and invokana on hold 5. Nicotine dependence: Patient quit 1 week ago. Has about a [id number] smoking history. Nicotine patch. 6. Hyperlipidemia: Statin. 7. Hypertension: On lisinopril and metoprolol. 8. DVT prophylaxis: SCDs. coumadin on hold o/a of thoracentesis tomorrow CODE STATUS: Full code Inpatient E&M: 60473 Subs Hosp L2
[2019-12-17 11:30] LABS: Bedside Glucose 169 mg/dL (70-110)
[2019-12-17 16:26] LABS: Bedside Glucose 231 mg/dL (70-110)
[2019-12-17] MEDS: Atorvastatin Calcium 10 MG Tablet PO (21:08)
[2019-12-18] VITALS (14 sets, daily range): BP systolic 100–156; BP diastolic 54–79; PULSE 86–121; RESP 16–20; TEMP 36.6–37.4; O2SAT 90–96
--- NOTE | 2019-12-18 | FLU_PTH ---
PATIENT: BARBARA MULLEN LOC: [facility] U#:[id number] AGE/SX: 74/M ROOM: [facility] RE12/14/[address]: Dr. Ny Medrano MD : 1945 BED: 1 DIS: 12/19/2019 SPEC #: [id number] RECD: 12/18/19 09:29 STATUS: [place] REQ #: [id number] ANGELIA: 12/18/19 00:[address]: Ny Medrano DEPT: CYTOLOGY RECD BY: Gabriel Guzman ENTERED: 12/18/19 10:40 SP TYPE: Fluid OTHR DR: MD Dr. Bora Bruner MD Dr. Joseph Agyepong, MD Tissues: THORACIC FLUID Procedures: Special Stain Group II Surgery Specimen Level IV Cytospin Fluid HEADER OPERATION: Left thoracentesis PRE-OP DIAGNOSIS: Pleural effusion TISSUE SUBMITTED: Thoracentesis fluid for cytology DIAGNOSIS CYTOLOGY Thoracentesis fluid for cytology (cytospin and cell block): Negative for malignant cells. AM:sony 12/19/19 CYTOLOGY STUDY Slides are reviewed. CYTOLOGY GROSS Received is 110 ml of cloudy red fluid labeled with the patient's name and and designated per the requisition as thoracentesis. Submitted for cytology preparation including cell block. / sony 12/18/19 TC:5 CPT: 30734, 11723
[2019-12-18 00:06] LABS: Bedside Glucose 153 mg/dL (70-110)
[2019-12-18 05:29] LABS: Absolute Lymphocyte Count 1.17 X10^3/uL (0.83-4.51); Absolute Neutrophil Count 5.5 X10^3/uL (2.0-7.7); Basophil# 0.01 X10^3/uL; Basophil% 0.1 % (0-1); Eosinophil# 0.09 X10^3/uL; Eosinophils% 1.1 % (0-5); Hematocrit 38.2 % (40-54); Lymphocyte # 1.17 X10^3/ul (4.0); Lymphocyte % 14.3 % (19-41); Mean Corp Hgb Conc 31.4 g/dL (32-36); Mean Corpuscular Hgb 31.7 pg (27.0-32.0); Mean Corpuscular Volume 101.1 fL (80-94); Mean Platelet Vol. 9.7 fl (6.2-12.0); Monocyte# 1.35 X10^3/uL; Monocyte% 16.5 % (0-10); NRBC Flagged by Analyzer 0 % (0-5); Neutrophil # 5.51 X10^3/uL (2.7-7.7); Neutrophil % 67.5 % (47-70); Platelet Count 237 K/mm3 (150-450); RBC Distribution Width CV 14.5 % (11.6-14.6); RBC Distribution Width SD 53.3 fl (35.1-43.9); Red Blood Count 3.78 M/mm3 (4.6-6.2); White Blood Count 8.2 K/mm3 (4.4-11.0)
[2019-12-18 05:37] LABS: International Normalized Ratio 1.3; Prothrombin Time (Protime)PT. 15.5 SECONDS (11.7-14.9)
[2019-12-18 05:45] LABS: ALB/GLOB Ratio 0.7 RATIO (0.9-2.4); Anion Gap 5 (5-15); BUN 29 mg/dL (7-18); BUN/Creat Ratio 32.6 RATIO (10-20); Calcium,Total 8.8 mg/dL (8.5-10.1); Chloride 96 mmol/L (98-107); Creatinine, Serum 0.89 mg/dL (0.70-1.30); EST Glomerular Filtration Rate 89 mL/min (>60); Est Glom Filt Rate - Afr Amer 107 mL/min (>60); Estimated Creatinine Clearance 75.19 ml/min; Globulin 4.3 g/dL (2.2-4.2); Glucose 132 mg/dL (74-106); LDH 245 U/L (87-241); Protein, Total 7.5 g/dL (6.4-8.2); Sodium Level 135 mmol/L (136-145)
[2019-12-18] MEDS: Furosemide 40 MG/4 ML Vial IV ×2 (06:13→17:46)
[2019-12-18 06:26] LABS: Bedside Glucose 128 mg/dL (70-110)
[2019-12-18] MEDS: Ipratropium/Albuterol Sulfate 3 ML AMPUL.NEB INHALATION ×3 (07:27→21:16)
[2019-12-18] MEDS: predniSONE 20 MG Tablet 40 MG PO (07:51)
--- NOTE | 2019-12-18 08:00 | US_ITS ---
PROCEDURE: ULTRASOUND GUIDED THORACENTESIS. DATE: December 18, 2019.. INDICATION: Male, 74 years old. Left pleural effusion. PHYSICIAN: Jan Prescott M.D. PROCEDURE: The risks, benefits, and alternatives to the procedure were explained to the patient. The specific risks of bleeding, infection, and pneumothorax requiring chest tube insertion were discussed and accepted. Written informed consent was obtained. Ultrasonographic evaluation of the left lower pleural space was carried out. An adequate pocket was identified. The patient was placed in the sitting, upright position. The overlying skin was prepped and draped in sterile fashion. 1% lidocaine was administered subcutaneously for local anesthesia. Under ultrasound guidance, a 5 British thoracentesis needle/catheter system was advanced into the left posterior lower pleural fluid collection. Approximately 1970 mL of bloody fluid was drained. The catheter was removed, and a sterile dressing was applied. A specimen was collected and sent to the laboratory for analysis, as requested by the referring clinician. The patient tolerated the procedure well. A chest x-ray was ordered. US/Thoracentesis W US IMPRESSION: Ultrasound-guided left thoracentesis. Electronically Signed: Jan Prescott, at 9:55 EDT , Service support ,
--- NOTE | 2019-12-18 09:22 | RAD_ITS ---
STUDY: X-RAY CHEST REASON FOR EXAM: Male, 74 years old. POST THORACENTESIS IN AND EX AP PCXR. TECHNIQUE: AP inspiration and expiration views COMPARISON: Comparison is made with prior study dated December 14, 2019. FINDINGS: EKG electrodes are seen. Residual pleural-parenchymal changes in the left hemithorax. No evidence of pneumothorax. RAD/Chest Insp/Exp 2 View IMPRESSION: No evidence of pneumothorax following the left thoracentesis. Electronically Signed: Jan Prescott, at 10:00 EDT , Service support ,
[2019-12-18 09:29] LABS: Cytology, Body Fluid / CSF SEE PATHOLOGY REPORT
[2019-12-18 10:16] LABS: Body Fluid Mononuclear WBC # 1.782 10^3/uL; Body Fluid Mononuclear WBC % 85.1 %; Body Fluid Polynuclear WBC # 0.312 10^3/uL; Body Fluid Polynuclear WBC % 14.9 %; Body Fluid Total Cells Counted 2.119 10^3/ul; Red Cell Count/Body Fluid 0.388 10^6/ul; White Blood Count/Body Fluid 2.094 10^3/uL
[2019-12-18 10:25] LABS: Glucose, Body Fluid 155 mg/dL (40-70)
[2019-12-18 10:34] LABS: Protein, Body Fluid 4.4 g/dL (Not Establ.)
[2019-12-18 10:35] LABS: LDH,Body Fluid 315 Units/l (Not Establ.)
--- NOTE | 2019-12-18 10:46 | PN_ITS ---
Patient Problems: Active and Suspected Problems (Last Reviewed 12/14/19 @ 20:[address] Stevie Gomez MD) Pleural effusion on left (Acute) Hypoxia (Acute) Atrial fibrillation with RVR (Acute) Lactic acidosis (Acute) Subjective: The patient was seen and examined at the bedside this morning. Events from the last 24 hours have been reviewed. The patient is currently afebrile, hemodynamically stable and maintaining appropriate oxygen saturations on 3 L/min via nasal cannula. The patient is now status post thoracentesis with 1.9 L of bloody fluid aspirated from his left hemithorax. Objective: The patient's most recent lab work, culture data and imaging studies have all been personally reviewed. - Physical Exam Vitals/I&O's: Vital Signs Temp Pulse Resp BP Pulse Ox 98.1 F 117 H 19 H 111/54 L 90 12/18/19 06:12 12/18/19 09:40 12/18/19 09:40 12/18/19 09:40 12/18/19 07:27 Oxygen Flow Rate (L/min) [4] 3 Oxygen Flow Rate (L/min) [1 ( 3 Initial Baseline)] Oxygen Flow Rate (L/min) 3 Oxygen Delivery Method [4] Nasal Cannula Oxygen Delivery Method [3] Nasal Cannula Oxygen Delivery Method [2] Nasal Cannula Oxygen Delivery Method [1 ( Nasal Cannula Initial Baseline)] Oxygen Delivery Method Nasal Cannula Weight: 239 lb 6.752 oz Body Mass Index (BMI) 34.3 Intake and Output for Last 24 Hours 12/16/19 12/17/19 12/18/19 23:59 23:59 23:59 Intake Total 1580 / 1580 900 / 900 200 / 200 Output Total 1925 / 1925 4300 / 4300 2420 / 2420 Balance -345 / -345 -3400 / -3400 -2220 / -2220 General: Alert, Cooperative, No apparent distress HEENT: Atraumatic, Normocephalic Oral: No Gingival or Mucosal Lesions/ Ulcerations Neck: Supple, No Nodes, Trachea Midline Lungs: Diminished Cardiovascular: Regular rate, Regular Rhythm Abdomen: Bowel Sounds Present, Soft, Non Tender, Obese Extremities: No clubbing, No cyanosis, No edema Skin: No breakdown Musculoskeletal: No Tenderness to Palpation of Joints or Extremities Lymphatic: No Cervical, Supraclavicular, or Inguinal Adenopathy Neurological: Cranial nerves II-XII grossly intact, Neuro grossly intact Psych/Mental Status: Normal Affect, Appropriate Labs (Last 48 Hours) 12/16/19 12/16/19 12/17/19 11:11 16:41 00:21 WBC RBC Hgb Hct MCV MCH MCHC RDW Std Deviation RDW Coeff of Keisha Plt Count MPV Immature Gran % (Auto) Neut % (Auto) Lymph % (Auto) Cobb % (Auto) Eos % (Auto) Baso % (Auto) Absolute Neuts (auto) Absolute Lymphs (auto) Nucleated RBC % PT INR Sodium Potassium Chloride Carbon Dioxide Anion Gap BUN Creatinine Estim Creat Clear Calc Est GFR (MDRD) Af Amer Est GFR (MDRD) Non-Af BUN/Creatinine Ratio Glucose Calcium Lactate Dehydrogenase Total Protein Globulin Albumin/Globulin Ratio Fluid Source Fluid Color Fluid Appearance Fluid WBC Fluid RBC Fluid Tot Cell Count Fld Polynuclear WBCs # Fld Polynuclear WBCs % Fluid Mononuclear WBCs Fld Mononuclear WBCs % Fl Pathologist Comment Fluid Glucose Fluid Total Protein Fluid LDH Fluid Comment 2 Miscellaneous Cytology POC Glucose 145 H 248 H 192 H 12/17/19 12/17/19 12/17/19 05:35 05:35 05:35 WBC 8.6 RBC 3.77 L Hgb 11.6 L Hct 38.0 L MCV 100.8 H MCH 30.8 MCHC 30.5 L RDW Std Deviation 54.3 H RDW Coeff of Keisha 14.6 Plt Count 243 MPV 9.3 Immature Gran % (Auto) 0.200 Neut % (Auto) 70.6 H Lymph % (Auto) 12.3 L Cobb % (Auto) 15.4 H Eos % (Auto) 1.4 Baso % (Auto) 0.1 Absolute Neuts (auto) 6.0 Absolute Lymphs (auto) 1.05 Nucleated RBC % 0 PT 18.5 H INR 1.6 Sodium 136 Potassium 4.1 Chloride 99 Carbon Dioxide 32.0 Anion Gap 5 BUN 30 H Creatinine 0.92 Estim Creat Clear Calc 72.74 Est GFR (MDRD) Af Amer 103 Est GFR (MDRD) Non-Af 85 BUN/Creatinine Ratio 32.5 H Glucose 108 H Calcium 8.7 Lactate Dehydrogenase Total Protein Globulin Albumin/Globulin Ratio Fluid Source Fluid Color Fluid Appearance Fluid WBC Fluid RBC Fluid Tot Cell Count Fld Polynuclear WBCs # Fld Polynuclear WBCs % Fluid Mononuclear WBCs Fld Mononuclear WBCs % Fl Pathologist Comment Fluid Glucose Fluid Total Protein Fluid LDH Fluid Comment 2 Miscellaneous Cytology POC Glucose 12/17/19 12/17/19 12/17/19 05:45 11:22 16:09 WBC RBC Hgb Hct MCV MCH MCHC RDW Std Deviation RDW Coeff of Keisha Plt Count MPV Immature Gran % (Auto) Neut % (Auto) Lymph % (Auto) Cobb % (Auto) Eos % (Auto) Baso % (Auto) Absolute Neuts (auto) Absolute Lymphs (auto) Nucleated RBC % PT INR Sodium Potassium Chloride Carbon Dioxide Anion Gap BUN Creatinine Estim Creat Clear Calc Est GFR (MDRD) Af Amer Est GFR (MDRD) Non-Af BUN/Creatinine Ratio Glucose Calcium Lactate Dehydrogenase Total Protein Globulin Albumin/Globulin Ratio Fluid Source Fluid Color Fluid Appearance Fluid WBC Fluid RBC Fluid Tot Cell Count Fld Polynuclear WBCs # Fld Polynuclear WBCs % Fluid Mononuclear WBCs Fld Mononuclear WBCs % Fl Pathologist Comment Fluid Glucose Fluid Total Protein Fluid LDH Fluid Comment 2 Miscellaneous Cytology POC Glucose 113 H 169 H 231 H 12/17/19 12/18/19 12/18/19 23:43 05:04 05:04 WBC 8.2 RBC 3.78 L Hgb 12.0 L Hct 38.2 L MCV 101.1 H MCH 31.7 MCHC 31.4 L RDW Std Deviation 53.3 H RDW Coeff of Keisha 14.5 Plt Count 237 MPV 9.7 Immature Gran % (Auto) 0.500 Neut % (Auto) 67.5 Lymph % (Auto) 14.3 L Cobb % (Auto) 16.5 H Eos % (Auto) 1.1 Baso % (Auto) 0.1 Absolute Neuts (auto) 5.5 Absolute Lymphs (auto) 1.17 Nucleated RBC % 0 PT 15.5 H INR 1.3 Sodium Potassium Chloride Carbon Dioxide Anion Gap BUN Creatinine Estim Creat Clear Calc Est GFR (MDRD) Af Amer Est GFR (MDRD) Non-Af BUN/Creatinine Ratio Glucose Calcium Lactate Dehydrogenase Total Protein Globulin Albumin/Globulin Ratio Fluid Source Fluid Color Fluid Appearance Fluid WBC Fluid RBC Fluid Tot Cell Count Fld Polynuclear WBCs # Fld Polynuclear WBCs % Fluid Mononuclear WBCs Fld Mononuclear WBCs % Fl Pathologist Comment Fluid Glucose Fluid Total Protein Fluid LDH Fluid Comment 2 Miscellaneous Cytology POC Glucose 153 H 12/18/19 12/18/19 12/18/19 05:04 06:11 09:10 WBC RBC Hgb Hct MCV MCH MCHC RDW Std Deviation RDW Coeff of Keisha Plt Count MPV Immature Gran % (Auto) Neut % (Auto) Lymph % (Auto) Cobb % (Auto) Eos % (Auto) Baso % (Auto) Absolute Neuts (auto) Absolute Lymphs (auto) Nucleated RBC % PT INR Sodium 135 L Potassium 4.0 Chloride 96 L Carbon Dioxide 34.0 H Anion Gap 5 BUN 29 H Creatinine 0.89 Estim Creat Clear Calc 75.19 Est GFR (MDRD) Af Amer 107 Est GFR (MDRD) Non-Af 89 BUN/Creatinine Ratio 32.6 H Glucose 132 H Calcium 8.8 Lactate Dehydrogenase 245 H Total Protein 7.5 Globulin 4.3 H Albumin/Globulin Ratio 0.7 L Fluid Source Fluid Color Fluid Appearance Fluid WBC Fluid RBC Fluid Tot Cell Count Fld Polynuclear WBCs # Fld Polynuclear WBCs % Fluid Mononuclear WBCs Fld Mononuclear WBCs % Fl Pathologist Comment Fluid Glucose 155 H Fluid Total Protein Fluid LDH Fluid Comment 2 Miscellaneous Cytology POC Glucose 128 H 12/18/19 12/18/19 12/18/19 09:10 09:10 09:10 WBC RBC Hgb Hct MCV MCH MCHC RDW Std Deviation RDW Coeff of Keisha Plt Count MPV Immature Gran % (Auto) Neut % (Auto) Lymph % (Auto) Cobb % (Auto) Eos % (Auto) Baso % (Auto) Absolute Neuts (auto) Absolute Lymphs (auto) Nucleated RBC % PT INR Sodium Potassium Chloride Carbon Dioxide Anion Gap BUN Creatinine Estim Creat Clear Calc Est GFR (MDRD) Af Amer Est GFR (MDRD) Non-Af BUN/Creatinine Ratio Glucose Calcium Lactate Dehydrogenase Total Protein Globulin Albumin/Globulin Ratio Fluid Source Pending Fluid Color Pending Fluid Appearance Pending Fluid WBC 2.094 Fluid RBC 0.388 Fluid Tot Cell Count 2.119 Fld Polynuclear WBCs # 0.312 Fld Polynuclear WBCs % 14.9 Fluid Mononuclear WBCs 1.782 Fld Mononuclear WBCs % 85.1 Fl Pathologist Comment Pending Fluid Glucose Fluid Total Protein 4.4 Fluid LDH 315 Fluid Comment 2 Pending Miscellaneous Cytology POC Glucose 06/15/20 09:10 WBC RBC Hgb Hct MCV MCH MCHC RDW Std Deviation RDW Coeff of Keisha Plt Count MPV Immature Gran % (Auto) Neut % (Auto) Lymph % (Auto) Cobb % (Auto) Eos % (Auto) Baso % (Auto) Absolute Neuts (auto) Absolute Lymphs (auto) Nucleated RBC % PT INR Sodium Potassium Chloride Carbon Dioxide Anion Gap BUN Creatinine Estim Creat Clear Calc Est GFR (MDRD) Af Amer Est GFR (MDRD) Non-Af BUN/Creatinine Ratio Glucose Calcium Lactate Dehydrogenase Total Protein Globulin Albumin/Globulin Ratio Fluid Source Fluid Color Fluid Appearance Fluid WBC Fluid RBC Fluid Tot Cell Count Fld Polynuclear WBCs # Fld Polynuclear WBCs % Fluid Mononuclear WBCs Fld Mononuclear WBCs % Fl Pathologist Comment Fluid Glucose Fluid Total Protein Fluid LDH Fluid Comment 2 Miscellaneous Cytology Pending POC Glucose Microbiology 12/14/19 17:15 Blood Culture (Wb) - Right Wrist Blood Culture - Preliminary No growth in 48 hours. 12/14/19 16:45 Blood Culture (Wb) - Anticubital Left Blood Culture - Preliminary No growth in 48 hours. Clinical Impression(s) from Imaging Studies Chest X-Ray 12/14/19 17:55 IMPRESSION: Large left hemithorax opacity most likely represents effusion and atelectasis. An underlying pneumonia should be excluded clinically. Electronically Signed: Wagner Gonzalez, at 20:04 EDT Tel , Service support , Chest CT 12/14/19 18:16 IMPRESSION: Severe left lung consolidation and large pleural effusion. Electronically Signed: Jitendra Mc MD at 19:23 EDT , Service support , Thoracentesis Ultrasound 12/18/19 08:00 IMPRESSION: Ultrasound-guided left thoracentesis. Electronically Signed: Jan Prescott, at 9:55 EDT , Service support , Chest X-Ray 12/18/19 09:22 IMPRESSION: No evidence of pneumothorax following the left thoracentesis. Electronically Signed: Jan Prescott, at 10:00 EDT , Service support , Current Medications Acetaminophen (Tylenol) 650 mg PO Q6H PRN PRN PRN Reason: Pain Score 1-10/Temp > 100.7 F Last Admin: 12/17/19 05:47 Dose: 650 mg Documented by: Albuterol/Ipratropium (Duoneb) 3 ml INHALATION Q6HWA.RT [facility] Last Admin: 12/18/19 07:27 Dose: 3 ml Documented by: Atorvastatin Calcium (Lipitor) 10 mg PO QHS [facility] Last Admin: 12/17/19 21:08 Dose: 10 mg Documented by: Dextrose (D50w Syringe) 0 gm IV X1 PRN; Protocol PRN Reason: Hypoglycemia Furosemide (Lasix) 40 mg IV Q8 [facility] Last Admin: 12/18/19 06:13 Dose: 40 mg Documented by: Glucagon () 1 mg IM .X1 PRN PRN Reason: Hypoglycemia Sodium Chloride () 250 mls @ 15 mls/hr IV .[id number] PRN PRN Reason: Saline Flush Sodium Chloride () 250 mls @ 15 mls/hr IV .[id number] PRN PRN Reason: Additional IVPB Infusion Insulin Human Lispro (Humalog Kwikpen (Bkc)) 0 unit SC Q6 [facility]; Protocol Last Admin: 12/18/19 06:13 Dose: Not Given Documented by: Lisinopril (Zestril) 2.5 mg PO DAILY [facility] Last Admin: 12/17/19 08:52 Dose: 2.5 mg Documented by: Metoprolol Tartrate (Lopressor (Beta Denita)) 12.5 mg PO BID [facility] Last Admin: 12/17/19 21:08 Dose: 12.5 mg Documented by: Ondansetron HCl (Zofran) 4 mg IV Q8H PRN PRN PRN Reason: NAUSEA/VOMITING Prednisone () 40 mg PO DAILY@0800 [facility] Last Admin: 12/18/19 07:51 Dose: 40 mg Documented by: Sodium Chloride () 10 - 40 ml IV UD PRN PRN Reason: SALINE FLUSH Last Admin: 12/17/19 14:46 Dose: 10 ml Documented by: Medical Necessity - Tobacco Use Smoking Status: Former smoker Tobacco Use: Cigarettes Assessment/Plan All Active Problems (Last Reviewed 12/14/19 @ 20:[address] Stevie Gomez MD) Pleural effusion on left (Acute) Hypoxia (Acute) Atrial fibrillation with RVR (Acute) Lactic acidosis (Acute) RECOMMENDATIONS: 1. Wean supplemental oxygen to maintain saturations at or above 90%. 2. Continue scheduled bronchodilator therapy. 3. Continue IV diuretic regimen. 4. Await pleural fluid cytology results. IMPRESSIONS: 1. Acute hypoxemic respiratory insufficiency secondary to left-sided pleural effusion The patient is now status post ultrasound-guided thoracentesis on December 17 with 1.9 L of fluid removed. Per traditional Light's criteria, if at least one of the following three is fulfilled, the fluid would be considered an exudate: 1. Pleural fluid protein/serum protein ratio greater than 0.5 2. Pleural fluid LDH/serum LDH ratio greater than 0.6 3. Pleural fluid LDH greater than two thirds the upper limits of the laboratories normal serum LDH Based upon my review of the patient's pleural fluid analysis, along with serum LDH and total protein levels, the pleural fluid would be considered exudative in nature. However, the patient has been maintained on a healthy diuretic regimen which could influence the pleural fluid results. I do agree with continuing di uretic therapy for now. Pleural fluid cytology is pending over concerns that the effusion could represent a malignancy. 2. Probable COPD/tobacco abuse High clinical suspicion for underlying COPD. Patient should have a complete pulmonary function test and walking oximetry as an outpatient. Unclear if this episode indicates a COPD exacerbation. Patient likely has decreased respiratory reserve to tolerate large pleural effusion. Would not recommend steroids given concomitant diabetes mellitus and lack of other constitutional symptoms to suggest a COPD exacerbation. Okay to continue with bronchodilators. 3. A. fib with RVR/diabetes mellitus/hyperlipidemia/hypertension/advanced age/obesity Complicates care, management, recovery and prognosis. Okay to continue with baseline medications from my perspective. This note was generated with [email or web address] software. It may contain incorrect words, spelling, and punctuation that were not noted in checking the note before signing. Inpatient E&M: 53212 Subs Hosp L2
[2019-12-18 10:53] LABS: Appearance/Body Fluid CLOUDY; Auto B Fluid Analyzer BKGD Ct COUNTS W/IN LIMITS (W/IN LIMITS); Color/Body Fluid RED; Lymphocytes 72 %; Monocytes 13 %; Neutrophil (Segs) 5 %; Source- Body Fluid PLEURAL FLUID
[2019-12-18 10:54] LABS: Body Fluid QC Type(s) BF1Q; Macrophages 10 %
[2019-12-18] MEDS: Metoprolol Tartrate 25 MG Tablet 12.5 MG PO ×2 (11:22→21:10)
[2019-12-18] MEDS: Lisinopril 2.5 MG Tablet PO (11:23)
[2019-12-18] MEDS: Insulin Lispro 100 UNIT/ML INSULN.PEN SC ×3 (11:23→23:47)
[2019-12-18 12:00] LABS: Bedside Glucose 225 mg/dL (70-110)
--- NOTE | 2019-12-18 12:22 | PN_ITS ---
Patient Problems: Active and Suspected Problems (Last Reviewed 12/14/19 @ 20:[address] Stevie Gomez MD) Pleural effusion on left (Acute) Hypoxia (Acute) Atrial fibrillation with RVR (Acute) Lactic acidosis (Acute) Reason for Visit: SOB Subjective: Pt with significant improvement in breathing after thoracentesis. 1970 cc of bloody fluid was drained. Patient denies history of prior pleural effusions. Patient does have a significant smoking history, smoked on and off for 50 years, quit 2 weeks ago. Currently no chest pain. Mild lower extremity edema however the patient notes that this is chronic. Chronic venous stasis changes of the lower extremity for which he says he is applying moisturizer daily. Patient anxious to be discharged as he lost his son approximately 1 week ago due to a motorcycle accident and states that his is having difficulty handling the situation. He currently remains on oxygen, does not normally require oxygen at home. Vitals/I&O's: Vital Signs Temp Pulse Resp BP Pulse Ox 99 F 109 H 16 122/65 H 94 12/18/19 11:20 12/18/19 11:22 12/18/19 11:20 12/18/19 11:20 12/18/19 11:20 Oxygen Flow Rate (L/min) [4] 3 Oxygen Flow Rate (L/min) [1 ( 3 Initial Baseline)] Oxygen Flow Rate (L/min) 3 Oxygen Delivery Method [4] Nasal Cannula Oxygen Delivery Method [3] Nasal Cannula Oxygen Delivery Method [2] Nasal Cannula Oxygen Delivery Method [1 ( Nasal Cannula Initial Baseline)] Oxygen Delivery Method Nasal Cannula Weight: 239 lb 6.752 oz Body Mass Index (BMI) 34.3 Intake and Output for Last 24 Hours 12/16/19 12/17/19 12/18/19 23:59 23:59 23:59 Intake Total 1580 / 1580 900 / 900 200 / 200 Output Total 1925 / 1925 4300 / 4300 2420 / 2420 Balance -345 / -345 -3400 / -3400 -2220 / -2220 General: Alert, Oriented x3, Cooperative HEENT: Atraumatic, PERRLA, EOMI, Normocephalic Neck: Supple, No JVD, Negative Carotid Bruits Lungs: Normal air movement, Diminished, Rales - faint BL bases Cardiovascular: Regular rate, No murmurs Abdomen: Bowel Sounds Present, Soft, Non Tender Extremities: No edema, Capillary Refill Less than 3 Seconds Skin: No rashes, No breakdown Musculoskeletal: No Tenderness to Palpation of Joints or Extremities Neurological: Cranial nerves II-XII grossly intact Psych/Mental Status: Normal Affect, Appropriate, Alert and oriented to time, place, person, mood and affect Microbiology Past 72 Hours 12/14/19 17:15 Blood Culture (Wb) - Right Wrist Blood Culture - Preliminary No growth in 48 hours. 12/14/19 16:45 Blood Culture (Wb) - Anticubital Left Blood Culture - Preliminary No growth in 48 hours. Laboratory Results 12/17/19 16:09: POC Glucose 231 H 12/17/19 23:43: POC Glucose 153 H 12/18/19 05:04: PT 15.5 H, INR 1.3 12/18/19 05:04: WBC 8.2, RBC 3.78 L, Hgb 12.0 L, Hct 38.2 L, MCV 101.1 H, MCH 31.7, MCHC 31.4 L, RDW Std Deviation 53.3 H, RDW Coeff of Keisha 14.5, Plt Count 237, MPV 9.7, Immature Gran % (Auto) 0.500, Neut % (Auto) 67.5, Lymph % (Auto) 14.3 L, [place] % (Auto) 16.5 H, Eos % (Auto) 1.1, Baso % (Auto) 0.1, Absolute Neuts (auto) 5.5, Absolute Lymphs (auto) 1.17, Nucleated RBC % 0 12/18/19 05:04: Sodium 135 L, Potassium 4.0, Chloride 96 L, Carbon Dioxide 34.0 H, Anion Gap 5, BUN 29 H, Creatinine 0.89, Estim Creat Clear Calc 75.19, Est GFR (MDRD) Af Amer 107, Est GFR (MDRD) Non-Af 89, BUN/Creatinine Ratio 32.6 H, Glucose 132 H, Calcium 8.8, Lactate Dehydrogenase 245 H, Total Protein 7.5, G lobulin 4.3 H, Albumin/Globulin Ratio 0.7 L 12/18/19 06:11: POC Glucose 128 H 12/18/19 09:10: Fluid Glucose 155 H 12/18/19 09:10: Fluid LDH 315 12/18/19 09:10: Fluid Total Protein 4.4 12/18/19 09:10: Fluid Source PLEURAL FLUID, Fluid Color RED, Fluid Appearance CLOUDY, Fluid WBC 2.094, Fluid RBC 0.388, Fluid Tot Cell Count 2.119, Fld Polynuclear WBCs # 0.312, Fld Polynuclear WBCs % 14.9, Fluid Mononuclear WBCs 1.782, Fld Mononuclear WBCs % 85.1, Fluid Neutrophils 5, Fluid Lymphocytes 72, Fluid Monocytes 13, Fluid Macrophages 10, Fl Pathologist Comment May follow, Fluid Comment 2 SEE COMMENT 12/18/19 09:10: Miscellaneous Cytology Pending 12/18/19 11:17: POC Glucose 225 H Current Medications Acetaminophen (Tylenol) 650 mg PO Q6H PRN PRN PRN Reason: Pain Score 1-10/Temp > 100.7 F Last Admin: 12/17/19 05:47 Dose: 650 mg Documented by: Albuterol/Ipratropium (Duoneb) 3 ml INHALATION Q6HWA.RT [facility] Last Admin: 12/18/19 07:27 Dose: 3 ml Documented by: Atorvastatin Calcium (Lipitor) 10 mg PO QHS [facility] Last Admin: 12/17/19 21:08 Dose: 10 mg Documented by: Dextrose (D50w Syringe) 0 gm IV X1 PRN; Protocol PRN Reason: Hypoglycemia Furosemide (Lasix) 40 mg IV Q8 [facility] Last Admin: 12/18/19 06:13 Dose: 40 mg Documented by: Glucagon () 1 mg IM .X1 PRN PRN Reason: Hypoglycemia Sodium Chloride () 250 mls @ 15 mls/hr IV .[id number] PRN PRN Reason: Saline Flush Sodium Chloride () 250 mls @ 15 mls/hr IV .[id number] PRN PRN Reason: Additional IVPB Infusion Insulin Human Lispro (Humalog Kwikpen (Bkc)) 0 unit SC Q6 [facility]; Protocol Last Admin: 12/18/19 11:23 Dose: 2 units Documented by: Lisinopril (Zestril) 2.5 mg PO DAILY [facility] Last Admin: 12/18/19 11:23 Dose: 2.5 mg Documented by: Metoprolol Tartrate (Lopressor (Beta Denita)) 12.5 mg PO BID [facility] Last Admin: 12/18/19 11:22 Dose: 12.5 mg Documented by: Ondansetron HCl (Zofran) 4 mg IV Q8H PRN PRN PRN Reason: NAUSEA/VOMITING Prednisone () 40 mg PO DAILY@0800 [facility] Last Admin: 12/18/19 07:51 Dose: 40 mg Documented by: Sodium Chloride () 10 - 40 ml IV UD PRN PRN Reason: SALINE FLUSH Last Admin: 12/17/19 14:46 Dose: 10 ml Documented by: STROKE Vital Signs/Narrative: Vital Signs Temp Pulse Pulse Pulse Pulse Pulse Resp 12/18/19 11:22 109 H 12/18/19 11:20 99 F 109 H 16 12/18/19 09:40 117 H 90 103 H 121 H Resp Resp Resp Resp BP BP BP 12/18/19 11:22 12/18/19 11:20 122/65 H 12/18/19 09:40 19 H 16 18 18 111/54 L 100/60 BP BP Pulse Ox 12/18/19 11:22 12/18/19 11:20 94 12/18/19 09:40 115/57 L 156/63 H Medical Necessity - Tobacco Use Smoking Status: Former smoker Tobacco Use: Cigarettes Assessment/Plan All Active Problems (Last Reviewed 12/14/19 @ 20:[address] Stevie Gomez MD) Pleural effusion on left (Acute) Hypoxia (Acute) Atrial fibrillation with RVR (Acute) Lactic acidosis (Acute) 1. Acute hypoxic resp failure 2/2 large left Pleural effusion - lights criteria + for exudate by protein and ldh. Heavy smoking hx. Pulm following. 1970 cc bloody fluid drained today. Doing well post thora. wean o2 as tolerated. CXR without pneumo 2. Chronic afib - rate controlled. coumadin held for thora. 3. T2DM - orals held. continue SSI 3. Nicotine abuse - smoked on/off x ~ 50 years. no craving at this time. 4 HLD - statin 5. Chronic venous insufficiency - continue daily moisturizer and fam wrap for LE edema 6. Hx Pulmonary htn, AAA, RBBB DVT ppx: SCDs This patient was seen by Live [facility] PA-C under the supervision of Dr. Medrano.
[2019-12-18 13:15] LABS: Magnesium 2.6 mg/dL (1.6-2.6); Thyroid Stim Hormone (TSH) 1.12 uIU/mL (0.358-3.74)
[2019-12-18 17:46] LABS: Bedside Glucose 264 mg/dL (70-110)
[2019-12-18] MEDS: 0.9% Saline Lock 10 ML Syringe IV (17:46)
[2019-12-18] MEDS: Atorvastatin Calcium 10 MG Tablet PO (21:10)
[2019-12-19] VITALS (12 sets, daily range): BP systolic 100–115; BP diastolic 55–65; PULSE 90–128; RESP 18–20; TEMP 36.3–36.8; O2SAT 85–96
[2019-12-19 00:01] LABS: Bedside Glucose 196 mg/dL (70-110)
[2019-12-19 06:03] LABS: Absolute Lymphocyte Count 1.24 X10^3/uL (0.83-4.51); Basophil# 0.01 X10^3/uL; Basophil% 0.1 % (0-1); Eosinophil# 0.09 X10^3/uL; Eosinophils% 1.2 % (0-5); Hematocrit 39.8 % (40-54); Hemoglobin 12.4 g/dL (13.0-16.5); Lymphocyte # 1.24 X10^3/ul (4.0); Lymphocyte % 16.4 % (19-41); Mean Corp Hgb Conc 31.2 g/dL (32-36); Mean Corpuscular Hgb 31.2 pg (27.0-32.0); Mean Corpuscular Volume 100.3 fL (80-94); Mean Platelet Vol. 9.8 fl (6.2-12.0); Monocyte# 1.23 X10^3/uL; Monocyte% 16.3 % (0-10); NRBC Flagged by Analyzer 0 % (0-5); Neutrophil # 4.95 X10^3/uL (2.7-7.7); Neutrophil % 65.6 % (47-70); Platelet Count 248 K/mm3 (150-450); RBC Distribution Width CV 14.1 % (11.6-14.6); RBC Distribution Width SD 52.2 fl (35.1-43.9); Red Blood Count 3.97 M/mm3 (4.6-6.2); White Blood Count 7.6 K/mm3 (4.4-11.0)
[2019-12-19 06:10] LABS: Bedside Glucose 121 mg/dL (70-110)
[2019-12-19 06:12] LABS: International Normalized Ratio 1.2; Prothrombin Time (Protime)PT. 14.8 SECONDS (11.7-14.9)
[2019-12-19 06:29] LABS: ALB/GLOB Ratio 0.8 RATIO (0.9-2.4); AST(SGOT) 17 U/L (15-37); Alanine Aminotransfer ALT/SGPT 20 U/L (16-61); Albumin, Serum 3.3 g/dL (3.2-5.0); Alkaline Phosphatase 80 U/L (45-117); Anion Gap 4 (5-15); BUN 26 mg/dL (7-18); Calcium,Total 9.1 mg/dL (8.5-10.1); Chloride 95 mmol/L (98-107); Creatinine, Serum 0.84 mg/dL (0.70-1.30); EST Glomerular Filtration Rate 95 mL/min (>60); Est Glom Filt Rate - Afr Amer 115 mL/min (>60); Estimated Creatinine Clearance 79.66 ml/min; Globulin 4.4 g/dL (2.2-4.2); Glucose 122 mg/dL (74-106); Protein, Total 7.7 g/dL (6.4-8.2); Sodium Level 136 mmol/L (136-145)
[2019-12-19] MEDS: Ipratropium/Albuterol Sulfate 3 ML AMPUL.NEB INHALATION ×2 (07:27→13:53)
[2019-12-19] MEDS: 0.9% Saline Lock 10 ML Syringe IV (09:20)
[2019-12-19] MEDS: Metoprolol Tartrate 25 MG Tablet PO (09:20)
[2019-12-19] MEDS: Metoprolol Tartrate 5 MG/5 ML Vial IV (09:20)
[2019-12-19] MEDS: Lisinopril 2.5 MG Tablet PO (09:20)
--- NOTE | 2019-12-19 09:43 | PN_ITS ---
Patient Problems: Active and Suspected Problems (Last Reviewed 12/14/19 @ 20:[address] Stevie Gomez MD) Pleural effusion on left (Acute) Hypoxia (Acute) Atrial fibrillation with RVR (Acute) Lactic acidosis (Acute) Subjective: The patient was seen and examined at the bedside this morning. Events from the last 24 hours have been reviewed. The patient is currently afebrile, hemodynamically stable and maintaining appropriate oxygen saturations on 2 L/min via nasal cannula. The patient's questions regarding his thoracentesis were answered this morning. He is rather insistent that he has plans to leave the hospital today as he needs to get home to care for his . Objective: The patient's most recent lab work, culture data and imaging studies have all been personally reviewed. - Physical Exam Vitals/I&O's: Vital Signs Temp Pulse Resp BP Pulse Ox 98.3 F 128 H 18 109/63 94 12/19/19 08:30 12/19/19 09:20 12/19/19 08:30 12/19/19 08:30 12/19/19 08:30 Oxygen Flow Rate (L/min) [4] 3 Oxygen Flow Rate (L/min) [1 ( 3 Initial Baseline)] Oxygen Flow Rate (L/min) [ 3 AMBULATION with Oxygen] Oxygen Flow Rate (L/min) 2 Oxygen Delivery Method [4] Nasal Cannula Oxygen Delivery Method [3] Nasal Cannula Oxygen Delivery Method [2] Nasal Cannula Oxygen Delivery Method [1 ( Nasal Cannula Initial Baseline)] Oxygen Delivery Method Nasal Cannula Weight: 239 lb 6.752 oz Body Mass Index (BMI) 34.3 Intake and Output for Last 24 Hours 12/17/19 12/18/19 12/19/19 23:59 23:59 23:59 Intake Total 900 / 900 1530 / 1530 240 / 240 Output Total 4300 / 4300 5095 / 5095 600 / 600 Balance -3400 / -3400 -3565 / -3565 -360 / -360 General: Alert, Cooperative, No apparent distress HEENT: Atraumatic, PERRLA, Normocephalic Oral: Moist Mucosa, No Gingival or Mucosal Lesions/ Ulcerations Neck: Supple, No Nodes, Trachea Midline Lungs: Diminished Cardiovascular: Normal S1, Normal S2, Irregular Rate, Tachycardic Abdomen: Bowel Sounds Present, Soft, Non Tender Extremities: No clubbing, No cyanosis, No edema Skin: No breakdown, - - Chronic venous stasis dermatitis Musculoskeletal: No Tenderness to Palpation of Joints or Extremities, No Muscle Wasting Lymphatic: No Cervical, Supraclavicular, or Inguinal Adenopathy Neurological: Cranial nerves II-XII grossly intact, Neuro grossly intact Psych/Mental Status: Alert and oriented to time, place, person, mood and affect Labs (Last 48 Hours) 12/17/19 12/17/19 12/17/19 11:22 16:09 23:43 WBC RBC Hgb Hct MCV MCH MCHC RDW Std Deviation RDW Coeff of Keisha Plt Count MPV Immature Gran % (Auto) Neut % (Auto) Lymph % (Auto) [place] % (Auto) Eos % (Auto) Baso % (Auto) Absolute Neuts (auto) Absolute Lymphs (auto) Nucleated RBC % PT INR Sodium Potassium Chloride Carbon Dioxide Anion Gap BUN Creatinine Estim Creat Clear Calc Est GFR (MDRD) Af Amer Est GFR (MDRD) Non-Af BUN/Creatinine Ratio Glucose Calcium Magnesium Total Bilirubin AST ALT Alkaline Phosphatase Lactate Dehydrogenase Total Protein Albumin Globulin Albumin/Globulin Ratio TSH Fluid Source Fluid Color Fluid Appearance Fluid WBC Fluid RBC Fluid Tot Cell Count Fld Polynuclear WBCs # Fld Polynuclear WBCs % Fluid Mononuclear WBCs Fld Mononuclear WBCs % Fluid Neutrophils Fluid Lymphocytes Fluid Monocytes Fluid Macrophages Fl Pathologist Comment Fluid Glucose Fluid Total Protein Fluid LDH Fluid Comment 2 Miscellaneous Cytology POC Glucose 169 H 231 H 153 H 12/18/19 12/18/19 12/18/19 05:04 05:04 05:04 WBC 8.2 RBC 3.78 L Hgb 12.0 L Hct 38.2 L MCV 101.1 H MCH 31.7 MCHC 31.4 L RDW Std Deviation 53.3 H RDW Coeff of Keisha 14.5 Plt Count 237 MPV 9.7 Immature Gran % (Auto) 0.500 Neut % (Auto) 67.5 Lymph % (Auto) 14.3 L [place] % (Auto) 16.5 H Eos % (Auto) 1.1 Baso % (Auto) 0.1 Absolute Neuts (auto) 5.5 Absolute Lymphs (auto) 1.17 Nucleated RBC % 0 PT 15.5 H INR 1.3 Sodium 135 L Potassium 4.0 Chloride 96 L Carbon Dioxide 34.0 H Anion Gap 5 BUN 29 H Creatinine 0.89 Estim Creat Clear Calc 75.19 Est GFR (MDRD) Af Amer 107 Est GFR (MDRD) Non-Af 89 BUN/Creatinine Ratio 32.6 H Glucose 132 H Calcium 8.8 Magnesium Total Bilirubin AST ALT Alkaline Phosphatase Lactate Dehydrogenase 245 H Total Protein 7.5 Albumin Globulin 4.3 H Albumin/Globulin Ratio 0.7 L TSH Fluid Source Fluid Color Fluid Appearance Fluid WBC Fluid RBC Fluid Tot Cell Count Fld Polynuclear WBCs # Fld Polynuclear WBCs % Fluid Mononuclear WBCs Fld Mononuclear WBCs % Fluid Neutrophils Fluid Lymphocytes Fluid Monocytes Fluid Macrophages Fl Pathologist Comment Fluid Glucose Fluid Total Protein Fluid LDH Fluid Comment 2 Miscellaneous Cytology POC Glucose 12/18/19 12/18/19 12/18/19 05:04 06:11 09:10 WBC RBC Hgb Hct MCV MCH MCHC RDW Std Deviation RDW Coeff of Keisha Plt Count MPV Immature Gran % (Auto) Neut % (Auto) Lymph % (Auto) [place] % (Auto) Eos % (Auto) Baso % (Auto) Absolute Neuts (auto) Absolute Lymphs (auto) Nucleated RBC % PT INR Sodium Potassium Chloride Carbon Dioxide Anion Gap BUN Creatinine Estim Creat Clear Calc Est GFR (MDRD) Af Amer Est GFR (MDRD) Non-Af BUN/Creatinine Ratio Glucose Calcium Magnesium 2.6 Total Bilirubin AST ALT Alkaline Phosphatase Lactate Dehydrogenase Total Protein Albumin Globulin Albumin/Globulin Ratio TSH 1.12 Fluid Source Fluid Color Fluid Appearance Fluid WBC Fluid RBC Fluid Tot Cell Count Fld Polynuclear WBCs # Fld Polynuclear WBCs % Fluid Mononuclear WBCs Fld Mononuclear WBCs % Fluid Neutrophils Fluid Lymphocytes Fluid Monocytes Fluid Macrophages Fl Pathologist Comment Fluid Glucose 155 H Fluid Total Protein Fluid LDH Fluid Comment 2 Miscellaneous Cytology POC Glucose 128 H 12/18/19 12/18/19 12/18/19 09:10 09:10 09:10 WBC RBC Hgb Hct MCV MCH MCHC RDW Std Deviation RDW Coeff of Keisha Plt Count MPV Immature Gran % (Auto) Neut % (Auto) Lymph % (Auto) [place] % (Auto) Eos % (Auto) Baso % (Auto) Absolute Neuts (auto) Absolute Lymphs (auto) Nucleated RBC % PT INR Sodium Potassium Chloride Carbon Dioxide Anion Gap BUN Creatinine Estim Creat Clear Calc Est GFR (MDRD) Af Amer Est GFR (MDRD) Non-Af BUN/Creatinine Ratio Glucose Calcium Magnesium Total Bilirubin AST ALT Alkaline Phosphatase Lactate Dehydrogenase Total Protein Albumin Globulin Albumin/Globulin Ratio TSH Fluid Source PLEURAL FLUID Fluid Color RED Fluid Appearance CLOUDY Fluid WBC 2.094 Fluid RBC 0.388 Fluid Tot Cell Count 2.119 Fld Polynuclear WBCs # 0.312 Fld Polynuclear WBCs % 14.9 Fluid Mononuclear WBCs 1.782 Fld Mononuclear WBCs % 85.1 Fluid Neutrophils 5 Fluid Lymphocytes 72 Fluid Monocytes 13 Fluid Macrophages 10 Fl Pathologist Comment May follow Fluid Glucose Fluid Total Protein 4.4 Fluid LDH 315 Fluid Comment 2 SEE COMMENT Miscellaneous Cytology POC Glucose 12/18/19 12/18/19 12/18/19 09:10 11:17 17:38 WBC RBC Hgb Hct MCV MCH MCHC RDW Std Deviation RDW Coeff of Keisha Plt Count MPV Immature Gran % (Auto) Neut % (Auto) Lymph % (Auto) [place] % (Auto) Eos % (Auto) Baso % (Auto) Absolute Neuts (auto) Absolute Lymphs (auto) Nucleated RBC % PT INR Sodium Potassium Chloride Carbon Dioxide Anion Gap BUN Creatinine Estim Creat Clear Calc Est GFR (MDRD) Af Amer Est GFR (MDRD) Non-Af BUN/Creatinine Ratio Glucose Calcium Magnesium Total Bilirubin AST ALT Alkaline Phosphatase Lactate Dehydrogenase Total Protein Albumin Globulin Albumin/Globulin Ratio TSH Fluid Source Fluid Color Fluid Appearance Fluid WBC Fluid RBC Fluid Tot Cell Count Fld Polynuclear WBCs # Fld Polynuclear WBCs % Fluid Mononuclear WBCs Fld Mononuclear WBCs % Fluid Neutrophils Fluid Lymphocytes Fluid Monocytes Fluid Macrophages Fl Pathologist Comment Fluid Glucose Fluid Total Protein Fluid LDH Fluid Comment 2 Miscellaneous Cytology Pending POC Glucose 225 H 264 H 12/18/19 12/19/19 12/19/19 23:45 05:40 05:40 WBC 7.6 RBC 3.97 L Hgb 12.4 L Hct 39.8 L MCV 100.3 H MCH 31.2 MCHC 31.2 L RDW Std Deviation 52.2 H RDW Coeff of Keisha 14.1 Plt Count 248 MPV 9.8 Immature Gran % (Auto) 0.400 Neut % (Auto) 65.6 Lymph % (Auto) 16.4 L [place] % (Auto) 16.3 H Eos % (Auto) 1.2 Baso % (Auto) 0.1 Absolute Neuts (auto) 5.0 Absolute Lymphs (auto) 1.24 Nucleated RBC % 0 PT INR Sodium 136 Potassium 4.0 Chloride 95 L Carbon Dioxide 37.0 H Anion Gap 4 L BUN 26 H Creatinine 0.84 Estim Creat Clear Calc 79.66 Est GFR (MDRD) Af Amer 115 Est GFR (MDRD) Non-Af 95 BUN/Creatinine Ratio 31.0 H Glucose 122 H Calcium 9.1 Magnesium Total Bilirubin 1.40 H AST 17 ALT 20 Alkaline Phosphatase 80 Lactate Dehydrogenase Total Protein 7.7 Albumin 3.3 Globulin 4.4 H Albumin/Globulin Ratio 0.8 L TSH Fluid Source Fluid Color Fluid Appearance Fluid WBC Fluid RBC Fluid Tot Cell Count Fld Polynuclear WBCs # Fld Polynuclear WBCs % Fluid Mononuclear WBCs Fld Mononuclear WBCs % Fluid Neutrophils Fluid Lymphocytes Fluid Monocytes Fluid Macrophages Fl Pathologist Comment Fluid Glucose Fluid Total Protein Fluid LDH Fluid Comment 2 Miscellaneous Cytology POC Glucose 196 H 12/19/19 12/19/19 05:40 05:57 WBC RBC Hgb Hct MCV MCH MCHC RDW Std Deviation RDW Coeff of Keihsa Plt Count MPV Immature Gran % (Auto) Neut % (Auto) Lymph % (Auto) [place] % (Auto) Eos % (Auto) Baso % (Auto) Absolute Neuts (auto) Absolute Lymphs (auto) Nucleated RBC % PT 14.8 INR 1.2 Sodium Potassium Chloride Carbon Dioxide Anion Gap BUN Creatinine Estim Creat Clear Calc Est GFR (MDRD) Af Amer Est GFR (MDRD) Non-Af BUN/Creatinine Ratio Glucose Calcium Magnesium Total Bilirubin AST ALT Alkaline Phosphatase Lactate Dehydrogenase Total Protein Albumin Globulin Albumin/Globulin Ratio TSH Fluid Source Fluid Color Fluid Appearance Fluid WBC Fluid RBC Fluid Tot Cell Count Fld Polynuclear WBCs # Fld Polynuclear WBCs % Fluid Mononuclear WBCs Fld Mononuclear WBCs % Fluid Neutrophils Fluid Lymphocytes Fluid Monocytes Fluid Macrophages Fl Pathologist Comment Fluid Glucose Fluid Total Protein Fluid LDH Fluid Comment 2 Miscellaneous Cytology POC Glucose 121 H Microbiology 12/14/19 17:15 Blood Culture (Wb) - Right Wrist Blood Culture - Preliminary No growth in 48 hours. 12/14/19 16:45 Blood Culture (Wb) - Anticubital Left Blood Culture - Preliminary No growth in 48 hours. Clinical Impression(s) from Imaging Studies Chest X-Ray 12/14/19 17:55 IMPRESSION: Large left hemithorax opacity most likely represents effusion and atelectasis. An underlying pneumonia should be excluded clinically. Electronically Signed: Wagner Gonzalez, at 20:04 EDT Tel , Service support , Chest CT 12/14/19 18:16 IMPRESSION: Severe left lung consolidation and large pleural effusion. Electronically Signed: Jitendra Mc MD at 19:23 EDT , Service support , Thoracentesis Ultrasound 12/18/19 08:00 IMPRESSION: Ultrasound-guided left thoracentesis. Electronically Signed: Jan Prescott, at 9:55 EDT , Service support , Chest X-Ray 12/18/19 09:22 IMPRESSION: No evidence of pneumothorax following the left thoracentesis. Electronically Signed: Jan Prescott, at 10:00 EDT , Service support , Current Medications Acetaminophen (Tylenol) 650 mg PO Q6H PRN PRN PRN Reason: Pain Score 1-10/Temp > 100.7 F Last Admin: 12/17/19 05:47 Dose: 650 mg Documented by: Albuterol Sulfate (Ventolin Aerosols) 2.5 mg INHALATION Q2H PRN PRN PRN Reason: Dyspnea, wheezing Albuterol/Ipratropium (Duoneb) 3 ml INHALATION Q6HWA.RT [facility] Last Admin: 12/19/19 07:27 Dose: 3 ml Documented by: Atorvastatin Calcium (Lipitor) 10 mg PO QHS [facility] Last Admin: 12/18/19 21:10 Dose: 10 mg Documented by: Dextrose (D50w Syringe) 0 gm IV X1 PRN; Protocol PRN Reason: Hypoglycemia Glucagon () 1 mg IM .X1 PRN PRN Reason: Hypoglycemia Hydralazine HCl (Apresoline Iv) 10 mg IV Q4H PRN PRN PRN Reason: SBP > 160 Sodium Chloride () 250 mls @ 15 mls/hr IV .[id number] PRN PRN Reason: Saline Flush Sodium Chloride () 250 mls @ 15 mls/hr IV .[id number] PRN PRN Reason: Additional IVPB Infusion Insulin Human Lispro (Humalog Kwikpen (Bkc)) 0 unit SC Q6 [facility]; Protocol Last Admin: 12/19/19 06:11 Dose: Not Given Documented by: Lisinopril (Zestril) 2.5 mg PO DAILY [facility] Last Admin: 12/19/19 09:20 Dose: 2.5 mg Documented by: Metoprolol Tartrate (Lopressor (Beta Denita)) 25 mg PO BID [facility] Last Admin: 12/19/19 09:20 Dose: 25 mg Documented by: Ondansetron HCl (Zofran) 4 mg IV Q8H PRN PRN PRN Reason: NAUSEA/VOMITING Sodium Chloride () 10 - 40 ml IV UD PRN PRN Reason: SALINE FLUSH Last Admin: 12/19/19 09:20 Dose: 10 ml Documented by: Warfarin Sodium (Coumadin (Pbkc)) 10 mg PO DAILY@1700 [facility] Medical Necessity - Tobacco Use Smoking Status: Former smoker Tobacco Use: Cigarettes Assessment/Plan All Active Problems (Last Reviewed 12/14/19 @ 20:[address] Stevie Gomez MD) Pleural effusion on left (Acute) Hypoxia (Acute) Atrial fibrillation with RVR (Acute) Lactic acidosis (Acute) RECOMMENDATIONS: 1. Wean supplemental oxygen to maintain saturations at or above 90%. 2. Continue scheduled bronchodilator therapy. 3. Continue diuretic regimen, as tolerated by renal function. 4. Await pleural fluid cytology results. 5. Perform walking oximetry study prior to consideration for discharge home. 6. Outpatient pulmonary follow-up within 2 weeks is warranted. IMPRESSIONS: 1. Acute hypoxemic respiratory insufficiency secondary to left-sided pleural effusion The patient is now status post ultrasound-guided thoracentesis on December 17 with 1.9 L of fluid removed. Per traditional Light's criteria, if at least one of the following three is fu lfilled, the fluid would be considered an exudate: 1. Pleural fluid protein/serum protein ratio greater than 0.5 2. Pleural fluid LDH/serum LDH ratio greater than 0.6 3. Pleural fluid LDH greater than two thirds the upper limits of the laboratories normal serum LDH Based upon my review of the patient's pleural fluid analysis, along with serum LDH and total protein levels, the pleural fluid would be considered exudative in nature. However, the patient has been maintained on a healthy diuretic regimen which could influence the pleural fluid results. The patient's diuretic regimen can be continued as tolerated by renal function. Pleural fluid cytology is still pending. The results of the study can be reviewed with the patient upon his follow-up in the pulmonary medicine clinic. 2. Probable COPD/tobacco abuse High clinical suspicion for underlying COPD. Patient should have a complete pulmonary function test and walking oximetry as an outpatient. Unclear if this episode indicates a COPD exacerbation. Patient likely has decreased respiratory reserve to tolerate large pleural effusion. Would not recommend steroids given concomitant diabetes mellitus and lack of other constitutional symptoms to suggest a COPD exacerbation. Okay to continue with bronchodilators. 3. A. fib with RVR/diabetes mellitus/hyperlipidemia/hypertension/advanced age/obesity Complicates care, management, recovery and prognosis. Okay to continue with baseline medications from my perspective. This note was generated with [employer] software. It may contain incorrect words, spelling, and punctuation that were not noted in checking the note before signing. Inpatient E&M: 72495 Subs Hosp L2
--- NOTE | 2019-12-19 10:23 | CASEMGMT ---
Pt qualifies for 3liters home oxygen at this time. See home oxygen qualification testing. Pt is agreeable to home oxygen and nebulizer at this time. Pt would like to use [facility] [place] as it is a [employer] preferred provider. Referral faxed to [facility] [place] at this time. Pt would like nebulizer meds to be sent thru [employer] mail order eventually so they will be sent to [facility] in [place] at this time. Pt voices no further questions/concerns/needs at this time. Myron MORALEZ CM
--- NOTE | 2019-12-19 10:44 | DCINST_ITS ---
- Discharge Diagnoses Current Active Problems: Current Active and Chronic Problems (Last Reviewed 12/14/19 @ 20:[address] Stevie Gomez MD) Pleural effusion on left (Acute) Hypoxia (Acute) Atrial fibrillation with RVR (Acute) Lactic acidosis (Acute) Mixed hyperlipidemia (Chronic) Essential hypertension (Chronic) Type 2 diabetes mellitus (Chronic) Chronic atrial fibrillation (Chronic) You will use the following diet at home:: Calorie/Carbohydrate Controlled (specify 1200, 1400, etc) - 1800 dione / day, Cardiac Your food should be the consistency of: Regular Your liquids should be the consistency of: Regular/Thin Discharge Activity: Return to Normal Activity Instructions: Thoracentesis Additional Instructions: Do not resume your home lasix (furosemide) until tomorrow morning. You will need a BMP (lab) checked this week, call your primary care doctor to arrange this. You will need your INR checked in 2 days as well. Allergies/Adverse Reactions: Allergies No Known Allergies Allergy (Verified 12/14/19 16:21) Medications to take at Discharge Atorvastatin Calcium [Lipitor] 10 mg PO QHS 11/06/13 Lisinopril [Zestril] 2.5 mg PO DAILY 11/06/13 Warfarin [Coumadin] 10 mg PO DAILY 07/02/14 Albuterol Inhaler [Ventolin Hfa] 1 - 2 puff INHALATION Q4H PRN PRN #1 inhaler 10/18/16 Canagliflozin [Invokana] 300 mg PO DAILY 11/24/16 glimepiride 4 mg tablet 4 mg PO DAILY tab 01/17/19 umeclidinium 62.5 mcg-vilanterol 25 mcg/actuation powdr for inhalation 1 inh INHALATION Q24H 01/17/19 Furosemide [Lasix] 40 mg PO BID 12/14/19 metFORMIN (XR) [Glucophage Xr] 1,000 mg PO BID 12/14/19 Acetaminophen [Tylenol Tablet] 650 mg PO Q6H PRN PRN tablet 12/19/19 Ipratropium/Albuterol Sulfate [Duoneb] 3 ml INHALATION Q6HWA.RT #120 ampul.neb 12/19/19 Metoprolol Tartrate [Lopressor (beta cherie)] 25 mg PO BID #60 tab 12/19/19 The following prescriptions were given: Ipratropium/Albuterol Sulfate [Duoneb] 3 ml INHALATION Q6HWA.RT #120 ampul.neb Transmission Status: Pending to [id number] Metoprolol Tartrate [Lopressor (beta cherie)] 25 mg PO BID #60 tab Transmission Status: Pending to [id number] Primary Care Physician: Bora Harris MD [Primary Care Provider] - Please follow up with your Primary Care Physician in: 1-2 weeks Test Results: Test results from this visit will be discussed in further detail at your follow- up appointment, if applicable. Please Follow Up With: Manju Ho NP-C When: 1-2 weeks Proposed Discharge Date: 12/19/19
[2019-12-19 11:15] LABS: Pathologist Comment/Body Fluid Reviewed
--- NOTE | 2019-12-19 11:34 | PHA.DC.MC ---
Pharmacy Service has performed discharge medication reconciliation and counseling for this patient. 1. IPRATROPIUM/ALBUTEROL 3ML INHALATION Q6HWA.RT 2. ACETAMINOPHEN 650MG PO Q6H PRN PAIN 1-10 The patient's discharge medication list was reviewed for discrepancies and discrepancies were resolved. Home Medications Atorvastatin Calcium [Lipitor] 10 mg PO QHS 11/06/13 Lisinopril [Zestril] 2.5 mg PO DAILY 11/06/13 Warfarin [Coumadin] 10 mg PO DAILY 07/02/14 Albuterol Inhaler [Ventolin Hfa] 1 - 2 puff INHALATION Q4H PRN PRN #1 inhaler 10/18/16 Canagliflozin [Invokana] 300 mg PO DAILY 11/24/16 glimepiride 4 mg tablet 4 mg PO DAILY tab 01/17/19 umeclidinium 62.5 mcg-vilanterol 25 mcg/actuation powdr for inhalation 1 inh INHALATION Q24H 01/17/19 Furosemide [Lasix] 40 mg PO BID 12/14/19 metFORMIN (XR) [Glucophage Xr] 1,000 mg PO BID 12/14/19 Acetaminophen [Tylenol Tablet] 650 mg PO Q6H PRN PRN tab 12/19/19 Ipratropium/Albuterol Sulfate [Duoneb] 3 ml INHALATION Q6HWA.RT #120 ampul.neb 12/19/19 Metoprolol Tartrate [Lopressor (beta cherie)] 25 mg PO BID #60 tab 12/19/19 The patient was counseled on the following discharge medications and changes in medications for homegoing were reviewed. The Reason for Use, instructions for use, and potential side effects were reviewed for all new medications. The patient's questions regarding all of their medications were answered. The patient was able to verbally demonstrate an understanding of their discharge medications.
[2019-12-19] MEDS: Insulin Lispro 100 UNIT/ML INSULN.PEN SC (11:37)
--- NOTE | 2019-12-19 11:51 | PCM.DC.SUM ---
Discharge Date and Diagnosis - Problem List Patient Problems: Active and Suspected Problems (Last Reviewed 12/14/19 @ 20:[address] Stevie Gomez MD) Pleural effusion on left (Acute) Hypoxia (Acute) Atrial fibrillation with RVR (Acute) Lactic acidosis (Acute) Date of Admission: 12/14/19 Date of Discharge: 12/19/19 - Primary Discharge Diagnosis Acute Problems: Active Problems (Last Reviewed 12/14/19 @ 20:[address] Stevie Gomez MD) Acute hypoxic respiratory failure secondary to pleural effusion on left - exudative Chronic atrial fibrillation, atrial fibrillation with rapid ventricular response Type 2 diabetes Nicotine abuse Hyperlipidemia Chronic venous insufficiency - Secondary Discharge Diagnosis Chronic Problems: Chronic Problems (Last Reviewed 12/14/19 @ 20:[address] Stevie Gomez MD) Non-rheumatic tricuspid valve insufficiency (Chronic) Nonrheumatic aortic (valve) stenosis (Chronic) Venous insufficiency (Chronic) RBBB (right bundle branch block) (Chronic) Pulmonary hypertension, secondary (Chronic) BPH (benign prostatic hyperplasia) (Chronic) Abdominal aortic aneurysm (AAA) (Chronic) Mixed hyperlipidemia (Chronic) Essential hypertension (Chronic) Type 2 diabetes mellitus (Chronic) Chronic atrial fibrillation (Chronic) Hospital Course and Treatment Imaging Results: RAD/Chest 1 View (Portable) IMPRESSION: Large left hemithorax opacity most likely represents effusion and atelectasis. An underlying pneumonia should be excluded clinically. CT/Chest WITH Contrast IMPRESSION: Severe left lung consolidation and large pleural effusion. US/Thoracentesis W US IMPRESSION: Ultrasound-guided left thoracentesis. 1970 cc blood fluid drained Consultations: Brown - Pulmonology Operations: None Procedures: Thoracentesis Summary of Care Provided: Hospital course: The patient is a 74 year old M with pmhx as above who presented to the ER with c/o SOB for about 5 days and mild chills. In the ER on room air at rest he was 88% with further decline on ambulation. His CXR showed a large left lung opacity. Follow up CT showed severe left lung consolidation and pleural effusion. Covid was negative. He was admitted to the PCU on tele, placed on IV lasix for effusion, and pulmonology consulted. Warfarin was held. The following day he underwent thoracentesis with 1970cc of blood fluid drained. He did not have significant change in hgb. He tolerated the procedure well with no evidence of pneumothorax. Fluid was exudative by lights criteria. The next day he had some increased tachycardia that responded well to IV lopressor. His home metoprolol dose was increased. His coumadin was restarted and he will need an INR in 2 days. Lasix was held the day of discharge due to incresaed CO2. He may resume his home lasix tomorrow. He should have a BMP this week. He will need follow up with pulmonology in 1-2 weeks. He will need follow up with his PCP in 1-2 weeks. The patient is active at home and in the community, and unable to be weaned off oxygen. In order to maintain adequate saturations the patient will require ongoing oxygen up to 3 L/min nasal cannula after discharge. This was arranged for him. He was discharged home in stable condition. This patient was seen by Live Augustin PA-C under the supervision of Doctor Marcela. [] Patient Problems: Active and Suspected Problems (Last Reviewed 12/14/19 @ 20:[address] Stevie Gomez MD) Pleural effusion on left (Acute) Hypoxia (Acute) Atrial fibrillation with RVR (Acute) Lactic acidosis (Acute) - Physical Exam Vitals/I&O's: Vital Signs Temp Pulse Resp BP Pulse Ox 97.4 F L 90 18 100/55 L 96 12/19/19 10:30 12/19/19 10:30 12/19/19 10:30 12/19/19 10:30 12/19/19 10:30 Oxygen Flow Rate (L/min) [4] 3 Oxygen Flow Rate (L/min) [1 ( 3 Initial Baseline)] Oxygen Flow Rate (L/min) [ 3 AMBULATION with Oxygen] Oxygen Flow Rate (L/min) 3 Oxygen Delivery Method [4] Nasal Cannula Oxygen Delivery Method [3] Nasal Cannula Oxygen Delivery Method [2] Nasal Cannula Oxygen Delivery Method [1 ( Nasal Cannula Initial Baseline)] Oxygen Delivery Method Nasal Cannula Weight: 239 lb 6.752 oz Body Mass Index (BMI) 34.3 Intake and Output for Last 24 Hours 12/17/19 12/18/19 12/19/19 23:59 23:59 23:59 Intake Total 900 / 900 1530 / 1530 240 / 240 Output Total 4300 / 4300 5095 / 5095 600 / 600 Balance -3400 / -3400 -3565 / -3565 -360 / -360 General: Alert, Oriented x3, Cooperative HEENT: Atraumatic, PERRLA, EOMI, Normocephalic Neck: Supple, No JVD, Negative Carotid Bruits Lungs: Clear to auscultation, Normal air movement Cardiovascular: Irregular Rate, Tachycardic Abdomen: Bowel Sounds Present, Soft, Non Tender Extremities: No edema, Capillary Refill Less than 3 Seconds Skin: No rashes, No breakdown, - - BL LE chronic venous stasis changes. Musculoskeletal: No Tenderness to Palpation of Joints or Extremities Neurological: Cranial nerves II-XII grossly intact Psych/Mental Status: Normal Affect, Appropriate, Alert and oriented to time, place, person, mood and affect Microbiology Past 72 Hours 12/18/19 09:10 Interface Orders Gram Stain - Final 12/18/19 09:10 Interface Orders Body Fluid Culture - Preliminary No growth-Final to follow 12/14/19 17:15 Blood Culture (Wb) - Right Wrist Blood Culture - Preliminary No growth in 48 hours. 12/14/19 16:45 Blood Culture (Wb) - Anticubital Left Blood Culture - Preliminary No growth in 48 hours. Laboratory Results 12/18/19 05:04: Magnesium 2.6, TSH 1.12 12/18/19 09:10: Fl Pathologist Comment Reviewed 12/18/19 11:17: POC Glucose 225 H 12/18/19 17:38: POC Glucose 264 H 12/18/19 23:45: POC Glucose 196 H 12/19/19 05:40: WBC 7.6, RBC 3.97 L, Hgb 12.4 L, Hct 39.8 L, MCV 100.3 H, MCH 31.2, MCHC 31.2 L, RDW Std Deviation 52.2 H, RDW Coeff of Keisha 14.1, Plt Count 248, MPV 9.8, Immature Gran % (Auto) 0.400, Neut % (Auto) 65.6, Lymph % (Auto) 16.4 L, [place] % (Auto) 16.3 H, Eos % (Auto) 1.2, Baso % (Auto) 0.1, Absolute Neuts (auto) 5.0, Absolute Lymphs (auto) 1.24, Nucleated RBC % 0 12/19/19 05:40: Sodium 136, Potassium 4.0, Chloride 95 L, Carbon Dioxide 37.0 H, Anion Gap 4 L, BUN 26 H, Creatinine 0.84, Estim Creat Clear Calc 79.66, Est GFR (MDRD) Af Amer 115, Est GFR (MDRD) Non-Af 95, BUN/Creatinine Ratio 31.0 H, Glucose 122 H, Calcium 9.1, Total Bilirubin 1.40 H, AST 17, ALT 20, Alkaline Phosphatase 80, Total Protein 7.7, Albumin 3.3, Globulin 4.4 H, Albumin/Globulin Ratio 0.8 L 12/19/19 05:40: PT 14.8, INR 1.2 12/19/19 05:57: POC Glucose 121 H Current Medications Acetaminophen (Tylenol) 650 mg PO Q6H PRN PRN PRN Reason: Pain Score 1-10/Temp > 100.7 F Last Admin: 12/17/19 05:47 Dose: 650 mg Documented by: Albuterol Sulfate (Ventolin Aerosols) 2.5 mg INHALATION Q2H PRN PRN PRN Reason: Dyspnea, wheezing Albuterol/Ipratropium (Duoneb) 3 ml INHALATION Q6HWA.RT BRENDEN Last Admin: 12/19/19 07:27 Dose: 3 ml Documented by: Atorvastatin Calcium (Lipitor) 10 mg PO QHS BRENDEN Last Admin: 12/18/19 21:10 Dose: 10 mg Documented by: Dextrose (D50w Syringe) 0 gm IV X1 PRN; Protocol PRN Reason: Hypoglycemia Glucagon () 1 mg IM .X1 PRN PRN Reason: Hypoglycemia Hydralazine HCl (Apresoline Iv) 10 mg IV Q4H PRN PRN PRN Reason: SBP > 160 Sodium Chloride () 250 mls @ 15 mls/hr IV .[id number] PRN PRN Reason: Saline Flush Sodium Chloride () 250 mls @ 15 mls/hr IV .[id number] PRN PRN Reason: Additional IVPB Infusion Insulin Human Lispro (Humalog Kwikpen (Bkc)) 0 unit SC Q6 [facility]; Protocol Last Admin: 12/19/19 11:37 Dose: 1 units Documented by: Lisinopril (Zestril) 2.5 mg PO DAILY [facility] Last Admin: 12/19/19 09:20 Dose: 2.5 mg Documented by: Metoprolol Tartrate (Lopressor (Beta Denita)) 25 mg PO BID [facility] Last Admin: 12/19/19 09:20 Dose: 25 mg Documented by: Ondansetron HCl (Zofran) 4 mg IV Q8H PRN PRN PRN Reason: NAUSEA/VOMITING Sodium Chloride () 10 - 40 ml IV UD PRN PRN Reason: SALINE FLUSH Last Admin: 12/19/19 09:20 Dose: 10 ml Documented by: Warfarin Sodium (Coumadin (Pbkc)) 10 mg PO DAILY@1700 [facility] Discharge Diet: Low fat/ Low Cholesterol, 1800 Calorie Control Diet, 2000 mg Sodium Diet Discharge Activity: Return to Normal Activity Home Medications: Medications to take at Discharge Atorvastatin Calcium [Lipitor] 10 mg PO QHS 11/06/13 Lisinopril [Zestril] 2.5 mg PO DAILY 11/06/13 Warfarin [Coumadin] 10 mg PO DAILY 07/02/14 Albuterol Inhaler [Ventolin Hfa] 1 - 2 puff INHALATION Q4H PRN PRN #1 inhaler 10/18/16 Canagliflozin [Invokana] 300 mg PO DAILY 11/24/16 glimepiride 4 mg tablet 4 mg PO DAILY tab 01/17/19 umeclidinium 62.5 mcg-vilanterol 25 mcg/actuation powdr for inhalation 1 inh INHALATION Q24H 01/17/19 Furosemide [Lasix] 40 mg PO BID 12/14/19 metFORMIN (XR) [Glucophage Xr] 1,000 mg PO BID 12/14/19 Acetaminophen [Tylenol Tablet] 650 mg PO Q6H PRN PRN tab 12/19/19 Ipratropium/Albuterol Sulfate [Duoneb] 3 ml INHALATION Q6HWA.RT #120 ampul.neb 12/19/19 Metoprolol Tartrate [Lopressor (beta denita)] 25 mg PO BID #60 tab 12/19/19 Following Prescrptions Were Given to Patient: Ipratropium/Albuterol Sulfate [Duoneb] 3 ml INHALATION Q6HWA.RT #120 ampul.neb Transmission Status: Received by [id number] Metoprolol Tartrate [Lopressor (beta denita)] 25 mg PO BID #60 tab Transmission Status: Received by [id number] Primary Care Physician: Bora Harris MD [Primary Care Provider] - Please follow up with your Primary Care Physician in: 1-2 weeks Please Follow Up With: Manju Ho NP-C When: 1-2 weeks Please Follow Up With: Bora Harris MD When: 1-2 weeks Patient Instructions: Thoracentesis Disposition: Home Minutes spent on discharge:: 35 Patient Condition:: Stable Medical Necessity - Tobacco Use Smoking Status: Former smoker Tobacco Use: Cigarettes Meaningful Use Info Meaningful Use Diagnoses (Choose all that apply): None applicable
[2019-12-19 11:55] LABS: Bedside Glucose 207 mg/dL (70-110)
--- NOTE | 2019-12-20 15:11 | CASEMGMT ---
KIRT WHITESIDE Discharge Follow-Up Phone Call. Lace: 12 Strata: 3 Discharge Date: 12/19/19 Adm Dx: Lt pleural effusion Call to pt to inquire about how he has been doing since being discharged from the hospital. Pt stated he is doing good. He denies having any SOB and has been tolerating the oxygen well. He states he just checked his oxygen level and it was 94% w/O2 @ 3 L/M. He states he got the nebulizer and medication and denies having any questions about those or any of the other medications or discharge instructions. Pt states he is awaiting a call back from Dr Harris's office re: making an appt. Pt states he was not aware he was to make an appt with Manju Ho NP, for Dr Llamas and Dr Velázquez in 2 weeks. Pt provided with their office phone number and pt states he will call them to make an appt as instructed. He denies other needs and denies having any questions. KIRT WHITESIDE thanked pt for choosing [facility]. Jazzmine LALA RN, CM
== END 2019-12-19 14:44 | disposition home or self-care (01) | DRG 186 ==
LOC: ED 19:29 → PCU 20:35
PROVIDERS: Internal Medicine Critical Care Medicine; Student in an Organized Health Care Education/Training Program; Admitting Provider Hospitalist; Emergency Provider Emergency Medicine; PCP Family Medicine; Visit Provider Family Medicine
DX: J90 Pleural effusion, not elsewhere classified (principal); J96.01 Acute respiratory failure with hypoxia; I48.20 Chronic atrial fibrillation, unspecified; I48.92 Unspecified atrial flutter; E87.2 Acidosis; J44.1 Chronic obstructive pulmonary disease with (acute) exacerbation; I10 Essential (primary) hypertension; E78.2 Mixed hyperlipidemia; E11.9 Type 2 diabetes mellitus without complications; I27.20 Pulmonary hypertension, unspecified; I45.10 Unspecified right bundle-branch block; I71.4 Abdominal aortic aneurysm, without rupture; N40.0 Benign prostatic hyperplasia without lower urinary tract symptoms; I36.1 Nonrheumatic tricuspid (valve) insufficiency; I87.2 Venous insufficiency (chronic) (peripheral); I35.2 Nonrheumatic aortic (valve) stenosis with insufficiency; E66.9 Obesity, unspecified; I87.8 Other specified disorders of veins; F17.210 Nicotine dependence, cigarettes, uncomplicated; Z79.84 Long term (current) use of oral hypoglycemic drugs; Z79.899 Other long term (current) drug therapy; Z79.01 Long term (current) use of anticoagulants; Z68.34 Body mass index [BMI] 34.0-34.9, adult
CPT/HCPCS: 32555; 36415; 71045; 71046; 71260; 80048; 80053; 82945; 82962; 83605; 83615; 83735; 84156; 84157; 84443; 85025; 85610; 86900; 86901; 87040; 87070; 87075; 87205; 87633; 87635; 88108; 88305; 88313; 89050; 93005; 94640; 99285; 99406; G2023; J7040; P9017; Q9967; A4216; J1940; U0003

== ENCOUNTER → 2019-12-22 15:08 | Outpatient (CLI) | payer MEDICARE, SELFPAY ==
[2019-12-14 20:54] VITALS: BMI 34.3
[2019-12-22 15:44] LABS: International Normalized Ratio 1.4; Prothrombin Time (Protime)PT. 16.5 SECONDS (11.7-14.9)
== END ==
PROVIDERS: PCP Family Medicine; Referring Provider Family Medicine; Visit Provider Family Medicine
DX: J90 Pleural effusion, not elsewhere classified (principal)
CPT/HCPCS: 85610

== ENCOUNTER → 2019-12-25 | Outpatient (CLI) | payer MEDICARE, SELFPAY ==
[2019-12-14 20:54] VITALS: BMI 34.3
[2019-12-25 10:52] LABS: International Normalized Ratio 1.8
== END | disposition home or self-care (01) ==
LOC: LABSPEC 10:25
PROVIDERS: PCP Family Medicine; Referring Provider Family Medicine; Visit Provider Family Medicine
DX: I48.20 Chronic atrial fibrillation, unspecified (principal)
CPT/HCPCS: 85610

== ENCOUNTER → 2020-01-30 07:18 | Outpatient (CLI) | payer MEDICARE, SELFPAY ==
[2020-01-02 07:30] VITALS: BMI 34.3
[2020-01-29 08:23] VITALS: BMI 32.0
--- NOTE | 2020-02-01 12:02 | PFT ---
INTRODUCTION: The patient is a 74-year-old male that presents for pulmonary function studies secondary to a diagnosis of shortness of breath. Respiratory therapy reports good patient effort. Bronchodilators were used during testing. INTERPRETATION: Forced expiration spirometry demonstrates the presence of a moderately severe large airways obstructive ventilatory defect. There was no significant response to aerosolized bronchodilators. Spirograms are of good quality and do not plateau indicating slow emptying of the lungs. Body plethysmography was performed and revealed an elevated RV to 125% of predicted, indicative of underlying air trapping. Diffusing capacity by single breath CO is reduced at 52% of predicted. IMPRESSION: Irreversible moderately severe large airways obstructive ventilatory defect with associated air trapping and symmetric reduction in diffusing capacity.
== END ==
PROVIDERS: PCP Family Medicine; Referring Provider Nurse Practitioner Acute Care; Visit Provider Nurse Practitioner Acute Care
DX: R06.02 Shortness of breath (principal)
CPT/HCPCS: 94060; 94726; 94729

== ENCOUNTER → 2020-01-31 10:03 | Outpatient (CLI) | payer MEDICARE, SELFPAY ==
[2020-01-02 07:30] VITALS: BMI 34.3
[2020-01-29 08:23] VITALS: BMI 32.0
[2020-01-31 10:53] VITALS: PULSE 106; PULSE 113; PULSE 115; PULSE 90; PULSE 94; PULSE 96; O2SAT 88; O2SAT 89; O2SAT 91; O2SAT 92; O2SAT 94; O2SAT 95
--- NOTE | 2020-01-31 11:30 | CPS ---
Patient has oxygen at home. Normally wears 3 lpm pulse dose when walking and states that he doesn't always need it when he is sitting. Patient started testing on room air, SpO2 88% by the 1st minute and did drop as low as 86%. Placed patient on his home O2 tank at 3 lpm pulse dose and he was able to walk the remaining of the test without breaks. Patient's SpO2 was 89% at the 5th minute and I reminded the patient to breathe through his nose and his SpO2 went up to 93%.
[2020-01-31 13:02] LABS: International Normalized Ratio 2.1; Prothrombin Time (Protime)PT. 23.4 SECONDS (11.7-14.9)
--- NOTE | 2020-02-01 12:23 | PCM.PSN.6M ---
PSN 6 Minute Walk Test - 6 Minute Walk Test 6 Minute Walk Test: 6 Minute Walk Test PSN:6-Minute Walk Test Start: 01/31/20 10:53 Freq: Status: Active Protocol: [id number] Document 01/31/20 10:53 MAYRA (Rec: 01/31/20 10:57 MAYRA [id number]) 6 Minute Walk Test Date Performed 01/31/20 Time Performed 10:30 Height 5 ft 10 in Weight: 218 lb Weight in Pounds 218.[address]: Manju Ho Assistive device used: None Pre-test Oxygen Delivery Method Room Air Pulse Ox (%) 91 Pulse Rate (60-100 beats/min) 96 Dyspnea Madhavi Scale (0-10) 0 Exertion Madhavi Scale (6-20) 6 1st minute Oxygen Delivery Method Room Air Pulse Ox (%) 88 Pulse Rate (60-100 beats/min) 115 H 2nd minute Oxygen Flow Rate (L/min) (L/min) 3 Oxygen Delivery Method Nasal Cannula Pulse Ox (%) 92 Pulse Rate (60-100 beats/min) 90 3rd minute Oxygen Flow Rate (L/min) (L/min) 3 Oxygen Delivery Method Nasal Cannula Pulse Ox (%) 92 Pulse Rate (60-100 beats/min) 94 4th minute Oxygen Flow Rate (L/min) (L/min) 3 Oxygen Delivery Method Nasal Cannula Pulse Ox (%) 92 Pulse Rate (60-100 beats/min) 106 H 5th minute Oxygen Flow Rate (L/min) (L/min) 3 Oxygen Delivery Method Nasal Cannula Pulse Ox (%) 89 Pulse Rate (60-100 beats/min) 106 H 6th minute Oxygen Flow Rate (L/min) (L/min) 3 Oxygen Delivery Method Nasal Cannula Pulse Ox (%) 94 Pulse Rate (60-100 beats/min) 113 H Dyspnea Madhavi Scale (0-10) 2 Exertion Madhavi Scale (6-20) 12 Post-test Oxygen Flow Rate (L/min) (L/min) 3 Oxygen Delivery Method Nasal Cannula Pulse Ox (%) 95 Pulse Rate (60-100 beats/min) 90 Full Laps Walked 11 Partial Lap, Number of Tiles Walked 20 Total Distance Walked (ft) 669 01/31/20 11:30 Cardiopulmonary Services by Hayley Araujo Patient has oxygen at home. Normally wears 3 lpm pulse dose when walking and states that he doesn't always need it when he is sitting. Patient started testing on room air, SpO2 88% by the 1st minute and did drop as low as 86%. Placed patient on his home O2 tank at 3 lpm pulse dose and he was able to walk the remaining of the test without breaks. Patient's SpO2 was 89% at the 5th minute and I reminded the patient to breathe through his nose and his SpO2 went up to 93%. Initialized on 01/31/20 11:30 - END OF NOTE - Interpretation Interpretation: The patient ambulated 669 feet over the course of 6 minutes beginning on room air without assistive devices or breaks. Pretesting oxygen saturation was noted to be 91% on room air. With ambulation, the akhil oxygen saturation was 88%. The patient was subsequently placed on 3 L/min of pulse dose supplemental oxygen. He was able to complete the remainder of the test while maintaining appropriate oxygen saturations. - Recommendations Recommendations: 3 L/min of pulse dose supplemental oxygen should be utilized with exertion.
== END ==
PROVIDERS: PCP Family Medicine; Referring Provider Nurse Practitioner Acute Care; Visit Provider Nurse Practitioner Acute Care
DX: R06.02 Shortness of breath (principal)
CPT/HCPCS: 85610; 94618

== ENCOUNTER → 2020-02-05 | Outpatient (CLI) | payer MEDICARE, SELFPAY ==
[2020-01-29 08:23] VITALS: BMI 32.0
[2020-02-05 10:23] LABS: International Normalized Ratio 3.3; Prothrombin Time (Protime)PT. 33.2 SECONDS (11.7-14.9)
== END | disposition home or self-care (01) ==
LOC: LABSPEC 10:02
PROVIDERS: PCP Family Medicine; Referring Provider Family Medicine; Visit Provider Family Medicine
DX: I48.20 Chronic atrial fibrillation, unspecified (principal)
CPT/HCPCS: 85610

== ENCOUNTER → 2020-02-08 | Outpatient (CLI) | payer MEDICARE, SELFPAY ==
[2020-01-29 08:23] VITALS: BMI 32.0
[2020-02-08 09:20] LABS: International Normalized Ratio 3.1
== END | disposition home or self-care (01) ==
LOC: LABSPEC 08:52
PROVIDERS: PCP Family Medicine; Referring Provider Family Medicine; Visit Provider Family Medicine
DX: I48.20 Chronic atrial fibrillation, unspecified (principal)
CPT/HCPCS: 85610

== ENCOUNTER 2020-02-09 12:39 | Emergency (ER) | payer MEDICARE, SELFPAY ==
[2020-01-29 08:23] VITALS: BMI 32.0
[2020-02-09 12:40] VITALS: BP 114/58; PULSE 104; RESP 22; TEMP 36.9; O2SAT 92; BMI 30.5
--- NOTE | 2020-02-09 12:51 | ED.DCSUM_ITS ---
History of Present Illness Chief Complaint: Back Informant: Patient, Significant Other Onset: Weeks - 4 weeks Injury: - - denies injury Timing: Continuous Quality: Sharp Location: Lumbar Current Severity: Severe Maximum Severity: Severe Worsened by: improves with: Nothing Relieved by: Nothing Narrative: 74-year-old male presents to the emergency department with left-sided back pain. It has been worsening for the last several weeks. Denies trauma or injury. It does not radiate. He has had 2 episodes of vomiting today. He also has hematuria. No fevers. Denies any dysuria, urinary frequency or urgency. Denies numbness or tingling of his lower extremities. Denies loss of bowel or bladder function. Denies abdominal pain. Denies chest pain or shortness of breath. Is not lightheaded or dizzy. He had an outpatient x-ray a week ago. It showed arthritis. He is not on anything for pain as an outpatient. Denies history of kidney stones. Prior similar symptoms: No Recent Illness/Hospitalization: No Past Medical History - Allergies and Home Meds Allergies/Adverse Reactions: Allergies No Known Allergies Allergy (Verified 02/09/20 12:42) Primary Care Physician: Bora Harris MD [Primary Care Provider] - Prior records reviewed: Yes Past Medical History: - - Hypertension, hyperlipidemia, atrial fibrillation Surgical History: noncontributory Lives: With Family Smoking Status: Former smoker Alcohol: Occasional Drugs: None - Family History Maternal Family History: Family History (Last Updated 01/02/20 @ 09:36 by Reanna Olea) Sister CVA (cerebral vascular accident) Mother Diabetes Cancer Father Tuberculosis Family History: Reports: No pertinent history Review of Systems All systems negative except as indicated General: Denies: Chills, Fever, Sweats Eyes: Denies: Visual changes - bilaterally, Diplopia ENT: Denies: Rhinorrhea, Sore throat Cardiovascular: Denies: Chest pain, Palpitations Respiratory: Denies: Dyspnea, Cough, Dyspnea on exertion Gastrointestinal: Denies: Abdominal pain, Nausea, Vomiting, Diarrhea, Melena, Hematochezia Genitourinary: Reports: Hematuria. Denies: Dysuria, Frequency Musculoskeletal: Reports: Back pain. Denies: Myalgias, Arthralgias, Neck pain, Swelling, Extremity Pain Skin: Denies: Rash, Wounds Neurological: Denies: Headache, Weakness, Parasthesia, Numbness Physical Exam Vital Signs/Narrative: Vital Signs Temp Pulse Resp BP Pulse Ox 02/09/20 12:40 98.4 F 104 H 22 H 114/58 L 92 Inital Vital Signs reviewed: Yes General: Well nourished, Well developed Head: Normocephalic, Atraumatic Eyes: Perrl, EOMI ENT: Moist mucous membranes, No rhinorrhea Neck: Supple, Nontender Cardiovascular: Regular rate, Regular rhythm, No murmurs Respiratory: No distress, CTA bilaterally, Chest nontender Abdomen: Soft, Nontender, Nondistended, Normal bowel sounds Back: Normal Inspection, Nontender, Paraspinal Tenderness, Negative SLR - Right, Negative SLR - Left. Negative for: Surgical Scar, Well-Healed, Spinal tenderness, CVA tenderness Extremeties: Nontender, No edema Skin: Normal color, No rash Neuro: Alert, Oriented, Normal Strength, Normal Sensation, Normal DTR, Normal Gait, Normal Reflexes Psychological: Normal affect Diagnostic/Tx/Re-eval Impressions Abdomen/Pelvis CT 02/09/20 12:57 IMPRESSION: Left pleural effusion with inhomogeneous consolidation in the left lower lobe. Minimal pericardial thickening and coronary artery calcification. Hypodensities are seen within the liver as described. Metastatic deposit should be ruled out. Bilateral renal cysts. This is more prominent in the right kidney. 3 mm nonobstructive catheter is in the lower pole cortex of the right kidney. Electronically Signed: Jan Prescott, at 13:55 EDT , Service support , 02/09/20 12:57 Abdomen/Pelvis without Cont [CT] Stat Laboratory Results 02/09/20 02/09/20 02/09/20 13:14 13:14 13:50 WBC 9.0 RBC 4.01 L Hgb 12.2 L Hct 38.5 L MCV 96.0 H MCH 30.4 MCHC 31.7 L RDW Std Deviation 52.9 H RDW Coeff of Keisha 15.1 H Plt Count 249 MPV 9.9 Immature Gran % (Auto) 0.300 Neut % (Auto) 72.7 H Lymph % (Auto) 11.5 L [place] % (Auto) 12.1 H Eos % (Auto) 3.0 Baso % (Auto) 0.4 Absolute Neuts (auto) 6.5 Absolute Lymphs (auto) 1.03 Nucleated RBC % 0 Sodium Cancelled 134 L Potassium Cancelled 4.0 Chloride Cancelled 99 Carbon Dioxide Cancelled 30.0 Anion Gap Cancelled 5 BUN Cancelled 20 H Creatinine Cancelled 1.03 Estim Creat Clear Calc Cancelled 64.97 Est GFR (MDRD) Af Amer Cancelled 91 Est GFR (MDRD) Non-Af Cancelled 75 BUN/Creatinine Ratio Cancelled 19.4 Glucose Cancelled 115 H Calcium Cancelled 9.0 Urine Color Urine Clarity Urine pH Ur Specific [place] Urine Protein Urine Glucose (UA) Urine Ketones Urine Occult Blood Urine Nitrite Urine Bilirubin Urine Urobilinogen Ur Leukocyte Esterase Urine RBC Urine WBC Ur Squamous Epith Cells Urine Bacteria Urine Mucus 02/09/20 14:30 WBC RBC Hgb Hct MCV MCH MCHC RDW Std Deviation RDW Coeff of Keisha Plt Count MPV Immature Gran % (Auto) Neut % (Auto) Lymph % (Auto) [place] % (Auto) Eos % (Auto) Baso % (Auto) Absolute Neuts (auto) Absolute Lymphs (auto) Nucleated RBC % Sodium Potassium Chloride Carbon Dioxide Anion Gap BUN Creatinine Estim Creat Clear Calc Est GFR (MDRD) Af Amer Est GFR (MDRD) Non-Af BUN/Creatinine Ratio Glucose Calcium Urine Color Straw Urine Clarity Clear Urine pH 6.0 Ur Specific [place] 1.010 Urine Protein Negative Urine Glucose (UA) 250 H Urine Ketones Negative Urine Occult Blood 10 H Urine Nitrite Negative Urine Bilirubin Negative Urine Urobilinogen 1 H Ur Leukocyte Esterase Negative Urine RBC 0-5 SEEN Urine WBC 0-5 SEEN Ur Squamous Epith Cells 0 SEEN Urine Bacteria 1+ Urine Mucus 0 SEEN - Medical Decision Making Patient presented with severe left-sided back pain but he also was complaining of hematuria and we were concerned for possible kidney stone. This work-up was pursued. His laboratory work-up was unremarkable. Urinalysis was negative. CT scan demonstrated Left pleural effusion with inhomogeneous consolidation in the left lower lobe. Minimal pericardial thickening and coronary artery calcification. Hypodensities are seen within the liver as described. Metastatic deposit should be ruled out. Bilateral renal cysts. This is more prominent in the right kidney. 3 mm nonobstructive catheter is in the lower pole cortex of the right kidney. Repeat evaluation the patient feels improved. He is able to tolerate by mouth. His repeat abdominal exam soft and nontender. He is ambulatory. Patient has this pleural effusion recurrently and was actually admitted to the hospital for this about 6 weeks ago and has been following as an outpatient with pulmonology. He is on oxygen 24 hours a day. On his home oxygen currently his pulse ox is normal. At this time we mutually agreed upon discharge home with outpatient follow-up. I will prescribe Percocet for his pain as he is on warfarin. He will follow-up next week with his doctor. ED Disposition - Plan for ED Patient: Disposition: Home or Assisted Living Diagnosis: Back pain, Pleural effusion Instructions: ED Back Pain Acute or Chronic, ED Effusion Pleural Prescriptions: Oxycodone HCl/Acetaminophen [Percocet 5/325] 1 tab PO Q6H PRN PRN 3 Days #12 tab PRN Reason: Pain Prescription Printed Referrals: Bora Harris MD [Primary Care Provider] - Alo Velázquez MD [STAFF PHYSICIAN] - 3-5 Days
--- NOTE | 2020-02-09 12:57 | CT_ITS ---
STUDY: CT ABDOMEN AND PELVIS WITHOUT CONTRAST REASON FOR EXAM: Male, 74 years old. LEFT SIDED BACK PAIN RADIATION DOSAGE (If Supplied By Facility): CTDIvol = ( 14.73 ) mGy, DLP = ( 740.99 ) mGycm TECHNIQUE: Transaxial images were obtained from the dome of the diaphragm to the symphysis pubis without oral contrast, and without intravenous contrast. Sagittal and coronal images were reconstructed. Individualized dose optimization techniques were used for this CT. COMPARISON: None. FINDINGS: Small left pleural effusion with inhomogeneous consolidation in the left lower lobe and volume loss. Coronary artery calcification. Minimal pericardial thickening. There is a 2.4 cm x 2.6 cm round hypodensity in the upper anterior right lobe of the liver. A similar appearing nodule is seen in the inferior lateral margin of the liver measuring 1.8 cm x 1.7 cm. Metastatic deposits should be ruled out. Borderline cardiomegaly. There are surgical clips in the gallbladder fossa consistent with a prior cholecystectomy. Normal spleen. There are pancreatic calcifications in the distribution of the ducts consistent with chronic pancreatitis. Normal bilateral adrenal glands. There are multiple right renal cysts. There is a 3 mm nonobstructive calculus in the lower pole calyx of the right kidney. Small left renal cyst is seen. Normal visualized stomach. Normal small intestine. Normal colon. The appendix is visualized and appears normal. There is diffuse atherosclerotic calcification of the abdominal aorta and its major visceral branches., without a demonstrated aneurysm. Normal inferior vena cava. There is borderline retroperitoneal lymphadenopathy with enlarged nodes no greater than 10mm in the short axis diameter. Normal urinary bladder. There are prostatic calcifications. The prostate measures 4.4 cm x 5.1 cm. Mildly enlarged bilateral inguinal lymph nodes. There is a small umbilical hernia containing fat. There are diffuse degenerative changes of the visualized lumbar spine. CT/Abdomen/Pelvis without Cont IMPRESSION: Left pleural effusion with inhomogeneous consolidation in the left lower lobe. Minimal pericardial thickening and coronary artery calcification. Hypodensities are seen within the liver as described. Metastatic deposit should be ruled out. Bilateral renal cysts. This is more prominent in the right kidney. 3 mm nonobstructive catheter is in the lower pole cortex of the right kidney. Electronically Signed: Jan Prescott, at 13:55 EDT , Service support ,
[2020-02-09] MEDS: Morphine 4 MG/ML Syringe IV (13:17)
[2020-02-09] MEDS: Ondansetron 4 MG/2 ML Vial IV (13:17)
[2020-02-09 13:30] LABS: Absolute Lymphocyte Count 1.03 X10^3/uL (0.83-4.51); Absolute Neutrophil Count 6.5 X10^3/uL (2.0-7.7); Basophil# 0.04 X10^3/uL; Basophil% 0.4 % (0-1); Eosinophil# 0.27 X10^3/uL; Hematocrit 38.5 % (40-54); Hemoglobin 12.2 g/dL (13.0-16.5); Lymphocyte # 1.03 X10^3/ul (4.0); Lymphocyte % 11.5 % (19-41); Mean Corp Hgb Conc 31.7 g/dL (32-36); Mean Corpuscular Hgb 30.4 pg (27.0-32.0); Mean Platelet Vol. 9.9 fl (6.2-12.0); Monocyte# 1.09 X10^3/uL; Monocyte% 12.1 % (0-10); NRBC Flagged by Analyzer 0 % (0-5); Neutrophil # 6.52 X10^3/uL (2.7-7.7); Neutrophil % 72.7 % (47-70); Platelet Count 249 K/mm3 (150-450); RBC Distribution Width CV 15.1 % (11.6-14.6); RBC Distribution Width SD 52.9 fl (35.1-43.9); Red Blood Count 4.01 M/mm3 (4.6-6.2)
[2020-02-09 14:20] LABS: Anion Gap 5 (5-15); BUN 20 mg/dL (7-18); BUN/Creat Ratio 19.4 RATIO (10-20); Chloride 99 mmol/L (98-107); Creatinine, Serum 1.03 mg/dL (0.70-1.30); EST Glomerular Filtration Rate 75 mL/min (>60); Est Glom Filt Rate - Afr Amer 91 mL/min (>60); Estimated Creatinine Clearance 64.97 ml/min; Glucose 115 mg/dL (74-106); Sodium Level 134 mmol/L (136-145)
[2020-02-09 14:36] LABS: Mucous, Urine 0 SEEN /hpf (<or=2+); Squamous Epithelial Cells - UA 0 SEEN /hpf (0-5)
[2020-02-09 14:39] LABS: Color, Urine Straw (Yellow); Glucose, Dipstick 250 mg/dl (Normal); Ketone-Dipstick Negative (Negative); Leukocyte Esterase-Dipstick Negative /ul (Negative); Nitrite-Dipstick Negative (Negative); Occult Blood-Urine 10 /ul (Negative); Protein-Dipstick Negative (Negative); Urine Bilirubin Dipstick Negative (Negative); Urine Clarity Clear (Clear); Urine Urobilinogen 1 mg/dl (Normal)
[2020-02-09 14:48] LABS: Bacteria 1+ /hpf (None Seen); Red Blood Cells-Urine 0-5 SEEN /hpf (0-5); White Blood Cells 0-5 SEEN /hpf (0-5)
[2020-02-09 15:16] VITALS: RESP 18
== END 2020-02-09 15:37 | disposition home or self-care (01) ==
PROVIDERS: Emergency Provider Physician Assistant Medical; PCP Family Medicine
DX: M54.9 Dorsalgia, unspecified (principal); J90 Pleural effusion, not elsewhere classified; R31.9 Hematuria, unspecified; R11.10 Vomiting, unspecified; I25.10 Atherosclerotic heart disease of native coronary artery without angina pectoris; N28.1 Cyst of kidney, acquired; I10 Essential (primary) hypertension; M19.90 Unspecified osteoarthritis, unspecified site; E78.5 Hyperlipidemia, unspecified; I48.91 Unspecified atrial fibrillation; Z79.84 Long term (current) use of oral hypoglycemic drugs; Z79.01 Long term (current) use of anticoagulants; Z79.899 Other long term (current) drug therapy; Z87.891 Personal history of nicotine dependence
CPT/HCPCS: 74176; 80048; 81001; 85025; 96374; 96375; 99283; A4216; J2405

== ENCOUNTER → 2020-02-15 | Outpatient (CLI) | payer MEDICARE, SELFPAY ==
[2020-02-14 12:49] VITALS: BMI 30.9
[2020-02-15 09:53] LABS: International Normalized Ratio 4.2; Prothrombin Time (Protime)PT. 40.5 SECONDS (11.7-14.9)
== END | disposition home or self-care (01) ==
LOC: LABSPEC 09:27
PROVIDERS: PCP Family Medicine; Referring Provider Family Medicine; Visit Provider Family Medicine
DX: I48.20 Chronic atrial fibrillation, unspecified (principal)
CPT/HCPCS: 85610

== ENCOUNTER → 2020-02-21 11:49 | Outpatient (CLI) | payer MEDICARE, SELFPAY ==
[2020-02-14 12:49] VITALS: BMI 30.9
[2020-02-20 09:40] LABS: Platelet Count 278 K/mm3 (150-450)
[2020-02-20 09:48] LABS: International Normalized Ratio 1.6; Partial Thromboplast Time 37.3 Seconds (24.1-36.2); Prothrombin Time (Protime)PT. 18.7 SECONDS (11.7-14.9)
[2020-02-20 10:11] LABS: ALB/GLOB Ratio 0.8 RATIO (0.9-2.4); Globulin 4.6 g/dL (2.2-4.2); Protein, Total 8.2 g/dL (6.4-8.2)
--- NOTE | 2020-02-21 | FLU_PTH ---
PATIENT: BARBARA MULLEN LOC: [facility]#:[id number] AGE/SX: 80/M ROOM: RE02/21/[address]: AVELINO Dixon : 1945 BED: DIS: SPEC #: [id number] RECD: 02/21/20 13:31 STATUS: [place] SILVIA #: [id number] ANGELIA: 02/21/20 00:[address]: Manju Ho NP DEPT: CYTOLOGY RECD BY: Juan Ramon Taveras ENTERED: 02/22/20 09:17 SP TYPE: Fluid OTHR DR: Dr. Bora Harris MD Tissues: THORACIC FLUID Procedures: Special Stain Group II Surgery Specimen Level IV Cytospin Fluid HEADER OPERATION: Ultrasound-guided left thoracentesis PRE-OP DIAGNOSIS: Left pleural effusion TISSUE SUBMITTED: Thoracentesis fluid for cytology DIAGNOSIS CYTOLOGY Thoracentesis fluid for cytology (cytospin and cell block): Negative for malignant cells. Bloody specimen. See comment. SJ:sony 02/23/20 COMMENT Clinical correlation and appropriate follow up are necessary. Please make reference to previous specimen ([id number]) thoracentesis fluid for cytology with diagnosis of negative for malignant cells. CYTOLOGY STUDY Slides are reviewed. CYTOLOGY GROSS Received is 100 ml of cloudy red fluid labeled with the patient's name and and designated per the requisition as thoracentesis. Submitted for cytology preparation including cell block. / sony 02/22/20 TC:5 CPT: 59237, 40713
--- NOTE | 2020-02-21 11:51 | US_ITS ---
PROCEDURE: ULTRASOUND GUIDED THORACENTESIS - CLINICAL HISTORY: Male, 74 years old. Left pleural effusion CONSENT: The risks, benefits and alternatives to the procedure were explained to the patient, and the patient agreed to the procedure and signed the consent. STERILE BARRIER TECHNIQUE: The following sterile barrier precautions were used during the procedure: hand hygiene; use of 2% chlorhexidine aseptic; use of a cap, mask, sterile gown, sterile gloves, sterile full body drape, and a large sterile sheet. SEDATION: Local anesthesia TECHNIQUE: Under the ultrasound guidance using all elements of maximum sterile technique and after infiltration of the skin and subcutaneous soft tissues with 10 mL of lidocaine 1% a 5 [place] drainage catheter is introduced in the lower part of the hemithorax. 700 mL of fluid were removed sample sent to lab for evaluation. The patient tolerated the procedure there was no immediate complication. US/Thoracentesis W US IMPRESSION: Successful ultrasound-guided thoracentesis. Electronically Signed: Johnnie Sutherland, at 17:44 EDT Tel , Service support ,
--- NOTE | 2020-02-21 12:09 | CT_ITS ---
STUDY: CT CHEST WITHOUT CONTRAST REASON FOR EXAM: Male, 74 years old. PT STATED LEFT SIDE CHEST PAIN POST THORACENTESIS RADIATION DOSAGE (If Supplied By Facility): CTDIvol = ( 17.40 ) mGy, DLP = ( 734.87 ) mGycm TECHNIQUE: Transaxial imaging was performed without the administration of intravenous contrast material. Individualized dose optimization techniques were used for this CT. COMPARISON: None. FINDINGS: There is incomplete expansion of the left lung base. There is marked pleural thickening in the left lung base may represent neoplastic process such as mesothelioma or metastatic disease. There is small residual left pleural effusion. There is small left pneumothorax estimated at 5%. There is no demonstrated pleural abnormality. Normal heart and pericardium. Normal mediastinum. Normal hilar regions. Normal unenhanced pulmonary arteries. Normal aorta arch and descending thoracic aorta. There are multi-level degenerative changes of the thoracic spine. There is a 2.4 cm x 2.6 cm round hypodensity in the upper anterior right lobe of the liver. A similar appearing nodule is seen in the inferior lateral margin of the liver measuring 1.8 cm x 1.7 cm. These may represent metastatic lesions. CT/Chest without Contrast IMPRESSION: There is incomplete expansion of the left lung base. There is marked pleural thickening in the left lung base may represent neoplastic process such as mesothelioma or metastatic disease. There is small residual left pleural effusion. There is small left pneumothorax estimated at 5%. Possible metastatic lesions in the liver. Electronically Signed: Johnnie Sutherland, at 15:36 EDT Tel , Service support ,
--- NOTE | 2020-02-21 13:07 | RAD_ITS ---
STUDY: X-RAY CHEST REASON FOR EXAM: Male, 74 years old. post thora, pt. having pain difficulty breathing TECHNIQUE: Single AP portable view of the chest. COMPARISON: None. FINDINGS: There is partial atelectasis of the left lung base. There is small residual left pleural effusion. There is small pneumothorax estimated at 5% at the lung base. Normal size heart. Normal mediastinum and eric. Normal visualized pulmonary arteries. Normal visualized aortic arch and descending thoracic aorta. Normal visualized thoracic spine. There is degenerative osteoarthritis of the bilateral shoulders. There is no demonstrated abnormality of the visualized soft tissue structures of the upper abdomen. RAD/Chest Insp/Exp 2 View IMPRESSION: There is small residual left pleural effusion. There is small pneumothorax estimated at 5% at the lung base. Electronically Signed: Johnnie Sutherland, at 15:08 EDT Tel , Service support ,
[2020-02-21 14:41] LABS: LDH,Body Fluid 161 Units/l (Not Establ.); Protein, Body Fluid 3.6 g/dL (Not Establ.)
[2020-02-21 14:43] LABS: LDH 277 U/L (87-241)
[2020-02-21 19:14] LABS: Auto B Fluid Analyzer BKGD Ct COUNTS W/IN LIMITS (W/IN LIMITS)
[2020-02-21 19:15] LABS: Color/Body Fluid PINK; Source- Body Fluid THORACENTESIS
[2020-02-21 19:16] LABS: Appearance/Body Fluid CLOUDY; Body Fluid Mononuclear WBC % 97.2 %; Body Fluid Polynuclear WBC % 2.8 %; Body Fluid Total Cells Counted 1.082 10^3/ul; Red Cell Count/Body Fluid 0.056 10^6/ul
[2020-02-21 19:18] LABS: Body Fluid QC Type(s) BF1Q
[2020-02-23 12:46] LABS: Lymphocytes 89 %
[2020-02-23 12:47] LABS: Monocytes 10 %; Neutrophil (Segs) 1 %
[2020-02-23 14:11] LABS: Pathologist Comment/Body Fluid Reviewed
== END ==
PROVIDERS: PCP Family Medicine; Referring Provider Nurse Practitioner Acute Care; Visit Provider Nurse Practitioner Acute Care
DX: J90 Pleural effusion, not elsewhere classified (principal); I48.91 Unspecified atrial fibrillation; R91.8 Other nonspecific abnormal finding of lung field
CPT/HCPCS: 32555; 36415; 71046; 71250; 83615; 84156; 84157; 85049; 85610; 85730; 87070; 87075; 87205; 88108; 88305; 88313; 89050

== ENCOUNTER → 2020-03-19 | Outpatient (CLI) | payer MEDICARE, SELFPAY ==
[2020-02-14 12:49] VITALS: BMI 30.9
[2020-03-19 14:07] LABS: International Normalized Ratio 2.4; Prothrombin Time (Protime)PT. 25.5 SECONDS (11.7-14.9)
== END | disposition home or self-care (01) ==
LOC: LABSPEC 12:21
PROVIDERS: PCP Family Medicine; Referring Provider Family Medicine; Visit Provider Family Medicine
DX: I48.20 Chronic atrial fibrillation, unspecified (principal)
CPT/HCPCS: 85610